=== PATIENT | female | born 1995 | race Caucasian/White ===

== ENCOUNTER 2020-01-31 18:52 | Emergency (ER) | payer OTHER, SELFPAY ==
--- NOTE | ~2020-01-31 | CT_ITS ---
EXAMINATION: CT abdomen pelvis w con EXAM DATE: 01/31/2020 20:49 INDICATION: Right upper quadrant, epigastric pain. TECHNIQUE: Spiral CT of the abdomen and pelvis was performed following intravenous injection of 100 m L Omnipaque 350. Axial, coronal and sagittal images were reviewed. The dose-length product (DLP) fo r this examination was 721.00 mGy-cm. The exposure was tailored according to patient size (auto mA e xposure control), and iterative reconstruction (ASIR) was used as additional dose reduction technique . There is no prior study for comparison. FINDINGS: The liver, spleen, adrenal glands and pancreas are unremarkable. Gallbladder is unremarkab le. No biliary obstruction. Portal and splenic veins are patent. Kidneys enhance symmetrically. T here is no hydronephrosis. The uterus is anteverted and morphologically normal. The bladder is un remarkable. There is no retroperitoneal or pelvic lymphadenopathy. The appendix is normal. The stomach and small bowel are unremarkable. There is expected amount of c olonic stool. No free intraperitoneal gas. The heart is normal in size. There are no pericardial or pleural effusions. The lung bases are unremarkable. The bones are unremarkable. IMPRESSION: 1. No acute intra-abdominal findings. Reviewed, dictated and finalized at location A.
[2020-01-31 18:54] VITALS: BP 138/85; PULSE 79; RESP 17; TEMP 36.9; O2SAT 98
--- NOTE | 2020-01-31 19:09 | PC.NURSE ---
PT INFORMED OF NEED FOR UA, REFUSING CATH, STATES THAT SHE WILL ATTEMPT LATER.
[2020-01-31 19:11] LABS: Basophils Absolute Auto 0.1 K/mm3 (0.0-0.1); Basophils Percent Auto 0.6 % (0.2-1.2); Eosinophils Absolute Auto 0.1 K/mm3 (0-0.3); Eosinophils Percent Auto 1.1 % (0-4.4); Hematocrit 39.8 % (37.0-47.0); Hemoglobin 13.5 g/dL (12.0-15.0); Immature Granulocyte Absolute 0.02 K/mm3 (0.00-0.031); Immature Granulocyte Percent A 0.2 % (0-0.5); Lymphocytes Percent Auto 24.1 % (18.3-44.2); Mean Corpuscular HGB Conc 33.9 g/dl (32-36); Mean Corpuscular Hemoglobin 30.3 pg (26-34); Mean Corpuscular Volume 89.2 fl (80-100); Mean Platelet Volume 11.6 fl (7.4-10.4); Monocytes Absolute Auto 0.8 K/mm3 (0.1-0.6); Monocytes Percent Auto 9.3 % (2.6-8.5); Neutrophils Absolute Auto 5.4 K/mm3 (1.3-6.7); Neutrophils Percent Auto 64.7 % (45.5-73.1); Platelet Count Result 266 k/mm3 (150-375); Red Blood Count 4.46 M/mm3 (4.2-5.4); Red Cell Distribution Width 12.9 % (11.5-14.5); White Blood Count 8.3 K/mm3 (4.5-10.0)
--- NOTE | 2020-01-31 19:15 | ED.ABDPAIN ---
HPI - Abdominal Pain General Chief Complaint: Abdominal Pain Stated Complaint: doctor says I may have gall stones Time Seen by Provider: 01/31/20 19:07 History of Present Illness HPI narrative: Epigastric pain for the past few weeks. Continuous. Worse with activity and after eating. Associated with nausea. Additionally she reports one dark stool. She does feel more fatigued. No dizziness or SOB. Seen by her PCP and started on Nexium a few days ago. He sent her here for further evaluation. Related Data Home Medications Medication Instructions Recorded Confirmed esomeprazole magnesium [Nexium] 40 mg PO DAILY 01/31/20 sertraline [Zoloft] 25 mg PO DAILY 01/31/20 Allergies Allergy/AdvReac Type Severity Reaction Status Date / Time amoxicillin Allergy Mild HIVES Verified 01/31/20 19:34 Review of Systems Review of Systems: All systems reviewed & are unremarkable except as noted in HPI and below Constitutional: Constitutional: Reports fever(s) and Denies weakness Cardiovascular: Cardiovascular: Denies chest pain Respiratory: Respiratory: Denies dyspnea Gastrointestinal: Gastrointestinal: Reports abdominal pain, Denies constipation, Denies diarrhea, Reports nausea and Denies vomiting Genitourinary: Genitourinary: Denies hematuria, Denies nocturia and Denies dysuria Musculoskeletal: Musculoskeletal: Denies back pain Neurologic: Denies dizziness and Denies weakness Hematologic/Lymphatic: Hematologic/Lymphatic: Denies easy bleeding and Denies easy bruising PMFSH Surgical History Surgical History Hx of tonsillectomy Social History Social History Gender identity (if verbalized by the patient): Female Exam Const: General: healthy appearing, no acute distress and alert Orientation/consciousness: patient oriented x3 HENMT: Head: normal to inspection Resp: Effort & Inspection: normal respiratory effort Auscultation: clear to auscultation bilaterally, no rales, no rhonchi and no wheezes Cardio: Jugular venous distension: no JVD Rate: regular rate Rhythm: regular rhythm Heart sounds: no murmurs GI: Inspection: non-distended GI Palp: Yes Soft to palpation, Yes Tenderness to palpation present (GI) (epigastric), No Guarding due to palpation present (GI) and No Rebound tenderness present Auscultation: normal bowel sounds Skin: General skin exam: normal color Neuro: General: patient oriented x3 and moves all extremities Speech: normal speech Course Vital Signs Vital signs: Vital Signs Temperature 36.9 C 01/31/20 18:54 Pulse Rate 79 01/31/20 18:54 Respiratory Rate 17 01/31/20 18:54 Blood Pressure 138/85 01/31/20 18:54 Pulse Oximetry 98 01/31/20 18:54 Temperature 36.9 C 01/31/20 18:54 Pulse Rate 71 01/31/20 21:30 Respiratory Rate 19 01/31/20 21:30 Blood Pressure 130/72 01/31/20 21:30 Pulse Oximetry 100 01/31/20 21:30 MDM - Abdominal Pain MDM Narrative Medical decision making narrative: H/o concerning for peptic ulcer, possibly biliary colic. Medical Records Attestation: I reviewed the patient's medical records. Lab Data Attestation: I reviewed the patient's lab results. Result diagrams: 01/31/20 19:05 01/31/20 19:55 Labs: Lab Results 01/31/20 01/31/20 01/31/20 Range/Units 19:05 19:19 19:55 WBC 8.3 (4.5-10.0) K/mm3 RBC 4.46 (4.2-5.4) M/mm3 Hgb 13.5 (12.0-15.0) g/dL Hct 39.8 (37.0-47.0) % MCV 89.2 (80-100) fl MCH 30.3 (26-34) pg MCHC 33.9 (32-36) g/dl RDW 12.9 (11.5-14.5) % Plt Count 266 (150-375) k/mm3 MPV 11.6 H (7.4-10.4) fl Immature Gran % (Auto) 0.2 (0-0.5) % Neut % (Auto) 64.7 (45.5-73.1) % Lymph % (Auto) 24.1 (18.3-44.2) % Phillips % (Auto) 9.3 H (2.6-8.5) % Eos % (Auto) 1.1 (0-4.4) % Baso % (Auto) 0.6 (0.2-1.2) % Lymph # (Auto)
[2020-01-31 19:30] LABS: Add Urine Microscopic? YES; Appearance Urine Clear (Clear); Bacteria Urine Trace /hpf; Bilirubin Urine Negative (Negative); Blood Urine 3+ (Negative); Color Urine Straw (Yellow); Glucose Urine UA Negative (Negative); Ketones Urine Negative (Negative); Leukocyte Esterase Ur Negative LEU/UL (Negative); Nitrate Urine Negative (Negative); Protein Urine Negative (Negative); RBC Urine 0-2 /hpf (0-2); Specific Grav Ur 1.006 (1.001-1.035); Squamous Epithelial Cell Urine Few /hpf (Few); WBC Urine 0-3 /hpf
[2020-01-31 20:12] LABS: Alanine Aminotransferase 22 U/L (4-35); Albumin Level 4.5 g/dL (3.5-5.1); Alkaline Phosphatase 48 U/L (38-126); Anion Gap 6 mmol/L (8-16); Aspartate Amino Transferase 34 U/L (14-36); Bilirubin,Total 2.6 mg/dL (0.2-1.3); Blood Urea Nitrogen 12 mg/dL (7-17); Calcium 9.1 mg/dL (8.4-10.2); Carbon Dioxide 25 mmol/L (22-30); Chloride 105 mmol/L (98-107); Estimated CRCL calculation 127 ml/min; Estimated Glomerular Filt Rate > 60; Glucose 116 mg/dL (65-105); Lipase 59 U/L (23-300); Potassium 3.7 mmol/L (3.4-5.0); Sodium 136 mmol/L (137-145)
[2020-01-31 21:30] VITALS: BP 130/72; PULSE 71; RESP 19; O2SAT 100
== END 2020-01-31 21:33 | disposition home or self-care (01) ==
PROVIDERS: Emergency Medicine; Emergency Provider Emergency Medicine; PCP Internal Medicine
DX: R10.13 Epigastric pain (principal); R10.9 Unspecified abdominal pain
CPT/HCPCS: 36415; 74177; 80053; 81001; 81025; 83690; 85025; 99284; Q9967

== ENCOUNTER 2020-05-11 11:11 | Outpatient (CLI) | payer OTHER, SELFPAY ==
--- NOTE | ~2020-05-11 | US_ITS ---
EXAMINATION: US OB transvaginal EXAM DATE: 05/11/2020 11:31 INDICATION: Dating. . 1st trimester. TECHNIQUE: Pelvic obstetrical transvaginal sonogram was performed by a technologist. There are [facility] grayscale and Doppler images available for interpretation. There are no earlier studies of this gestation for comparison. FINDINGS: Uterus measures 9.7 x 4.9 x 6.0 cm. There is intrauterine gestation sac. pole with heart rate confirmed at 145 beats per minute. The 9 mm crown-rump length corresponds to estimated ge stational age by ultrasound of 7 weeks 0 days, estimated date of confinement 12/28/2020. Yolk sac is i dentified. There is no sonographic evidence of subchorionic hemorrhage. The ovaries are morpholog ically normal. IMPRESSION: Early live intrauterine gestation, age by ultrasound 7 weeks 0 days. Reviewed, dictated and finalized at location A. RITY DISPATCHER IMPRESSION: Early live intrauterine gestation, age by ultrasound 7 weeks 0 day s.
== END 2020-05-11 11:12 ==
PROVIDERS: Visit Provider Obstetrics & Gynecology Gynecology
DX: O26.841 Uterine size-date discrepancy, first trimester (principal); Z3A.01 Less than 8 weeks gestation of pregnancy
CPT/HCPCS: 76817

== ENCOUNTER 2020-06-26 12:07 | Outpatient (CLI) | payer OTHER, SELFPAY ==
--- NOTE | ~2020-06-26 | US_ITS ---
EXAMINATION: US breast LT limited HISTORY: Left breast pain and swelling and left nipple inversion TECHNIQUE: Targeted ultrasound of the subareolar left breast is performed. FINDINGS: There is an approximately 3.8 x 1.7 cm fluid collection with debris in the subareolar aspec t of the breast. The fluid containing component measures approximately 2 cm. There is increased vascu larity and edema of the surrounding breast tissue. IMPRESSION: Cellulitis with possible small abscess in the subareolar aspect of the breast. Recommend trial of ant ibiotics and repeat ultrasound with possible aspiration if necessary. BI-RADS Category 2: Benign finding(s). Reviewed, dictated and finalized at location A. O MAKER IMPRESSION: Cellulitis with possible small abscess in the subareolar aspect of the breast. Recommend trial of antibiotics and repeat ultrasound with possible aspiration i f necessary. BI-RADS Category 2: Benign finding(s).
== END 2020-06-26 12:08 | disposition home or self-care (01) ==
PROVIDERS: Visit Provider Nurse Practitioner
DX: N63.20 Unspecified lump in the left breast, unspecified quadrant (principal)
CPT/HCPCS: 76642

== ENCOUNTER → 2020-07-11 08:24 | Outpatient (CLI) | payer OTHER, SELFPAY ==
--- NOTE | ~2020-07-11 | US_ITS ---
US breast LT limited DATE: 07/11/2020 08:42 INDICATION: Breast abscess follow-up TECHNIQUE: High-resolution ultrasound and color flow imaging of left breast targeted to the abscess a t T10-11 o'clock COMPARISON: 06/26/2020 Limited left breast ultrasound examination FINDINGS: There is interval decreased size of an irregular fluid collection in the left breast at 10- 11:00 area, previously measuring up to at least 1.4 x 4.8 x 4 cm on 06/26/2020, currently measuring arianna roximately 10 x 26 x 35 mm. There is prominent surrounding vascularity on color flow imaging. There i s no suspicious shadowing. IMPRESSION: Diminished size of irregular fluid collection in the left breast at 10-11:00 position, cody bourne consistent with mildly improving abscess secondary to antibiotic therapy Reviewed, dictated and finalized at Location A. Reviewed, dictated and finalized at location A. EKEEPER IMPRESSION: Diminished size of irregular fluid collection in the left breast at 10-11:00 position, likely consistent with mildly improving abscess secondary t o antibiotic therapy
== END ==
PROVIDERS: Visit Provider Obstetrics & Gynecology Gynecology
DX: N61.1 Abscess of the breast and nipple (principal)
CPT/HCPCS: 76642

== ENCOUNTER 2020-08-22 18:25 | Inpatient (IN) | payer OTHER, SELFPAY ==
--- NOTE | ~2020-08-22 | US_ITS ---
EXAMINATION: US OB follow up EXAM DATE: 08/24/2020 10:11 INDICATION: Growth and fluid, well being post abscess tx . well-being. 2nd trimester. TECHNIQUE: Pelvic obstetrical transabdominal sonogram was performed by a technologist. There are mu ltiple grayscale and Doppler images available for interpretation. FINDINGS: There is a single fetus identified in breech presentation with a heart rate of 161 beats pe r minute. The placenta is located in the posterior fundal position. There is no sonographic evidence of retroplacental hemorrhage identified. The amniotic fluid index is 11.5 centimeters, which is norm al. BIOMETRIC DATA: Biparietal diameter (BPD): 5.1cm ----------------> 21 weeks 4 days. Head circumference (HC): 19.4 cm ----------------> 21 weeks 4 days. Abdominal circumference (AC): 18.5 cm ----------> 23 weeks 2 days. Femur length (FL): 3.7 cm --------------------------> 21 weeks 5 days. These measurements are discordant, decreased HC/AC ratio. HC/AC ratio is 1.05 (The 5th -- 95th percentile range is 1.06-1.11. Estimated weight is 506 g +/- 76 g. This is the 68th percentile when the currently reported cl inical gestation age 22 weeks 0 days, clinical estimated date of delivery (FADI-OPE) 12/28/2020 is used. estimated gestational age based on measurements from this exam is also 22 weeks 0 days. IMPRESSION: 1. Single fetus in breech presentation with heart rate 161 beats per minute. 2. Estimated weight of 506 grams, 68th percentile using the currently reported clinical gestat ion age of 22 weeks 0 days, FADI(OPE) 12/28. 3. Mildly decreased HC/AC ratio. 4. Normal MICHAEL 11.5 cm. Reviewed, dictated and finalized at location A. IONS RETIREMENT PLAN SPECIALIST IMPRESSION: 1. Single fetus in breech presentation with heart rate 161 beats per minute. 2. Estimated weight of 506 grams, 68th percentile using the currently re ported clinical gestation age of 22 weeks 0 days, FADI(OPE) 7/8. 3. Mildly decreased HC/AC ratio. 4. Normal MICHAEL 11.5 cm.
--- NOTE | ~2020-08-22 | US_ITS ---
EXAMINATION: US breast cyst asp LT DATE: 08/23/2020 14:54 INDICATION: Recurrent left breast abscess. TECHNIQUE: The skin overlying the left breast was prepped and draped in usual sterile fashion. Anest hetic was administered with 1% lidocaine subcutaneously. An 18 trochanter needle was then used to as pirate the abscess under continuous sonographic guidance. The entry site was cleaned and dressed. Th ere were no immediate complications. FINDINGS: Ultrasound images demonstrate the needle in a left breast abscess. IMPRESSION: 1. Ultrasound-guided needle aspiration of a left breast abscess yielding 7 mL miguel, opaque fluid. Reviewed, dictated and finalized at location A. A PROMOTER IMPRESSION: 1. Ultrasound-guided needle aspiration of a left breast abscess yielding 7 mL t an, opaque fluid.
[2020-08-22 18:45] VITALS: BP 141/81; PULSE 108; RESP 20; TEMP 37.2; O2SAT 100
[2020-08-22 20:42] VITALS: BP 148/89; PULSE 85; RESP 12; TEMP 36.4; O2SAT 100
--- NOTE | 2020-08-22 21:20 | ED.GENADULT ---
HPI - General Adult General Chief complaint: Unspecified Stated complaint: left breast abcess Time Seen by Provider: 08/22/20 21:18 Source: patient Mode of arrival: ambulatory Limitations: no limitations History of Present Illness HPI narrative: 25-year-old female with a large, recurring breast abscess on the left. She states that she started developing these abscesses back in February and they occur approximately every other month. This is the largest and most painful when she has had and she had been referred to the [facility] for I&D. She saw them on they were unable to drain the abscess under ultrasound they did do a culture of the fluid that was a no growth she had been on clindamycin and is now on Bactrim. She denies any fever but has significant pain, swelling and erythema. There is no discharge from her nipple. She came in tonight at the recommendation of her literary agent because the abscess is growing and is quite painful and he thought she may need IV antibiotics. Incidentally, she is 21 weeks her EDC is December 28, 2020. She is not diabetic. Onset (ago): day(s) Associated symptoms: denies other symptoms Related Data Home Medications Medication Instructions Recorded Confirmed esomeprazole magnesium [Nexium] 40 mg PO DAILY 01/31/20 sertraline [Zoloft] 25 mg PO DAILY 01/31/20 Allergies Allergy/AdvReac Type Severity Reaction Status Date / Time amoxicillin Allergy Mild HIVES Verified 08/22/20 21:25 Review of Systems Review of Systems: All systems reviewed & are unremarkable except as noted in HPI and below [facility] Surgical History Surgical History Hx of tonsillectomy Social History Social History (Updated 08/22/20 @ 21:36 by Kacie Solorzano PA-C) Smoking status: Never smoker Alcohol intake: never Substance use: never Living arrangements: with family Occupation/Education: occupation 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 ) Other: There is a firm, 8X 5 cm abscess behind the nipple, erythematous. No areas of fluctuance, no drainage from nipple. Resp: Effort & Inspection: normal respiratory effort and able to speak in complete sentences Cardio: Rate: regular rate Rhythm: regular rhythm GI: Inspection: other (gravid) Skin: General skin exam: erythema (around abscess) Extrem: General: normal to inspection Course Course Emergency Course: Pt showed me the US and cx results from [place]. Bi-Rad: appears benign, but has not been bx. It grew ~ 5 cm in 1 month despite being on antibiotic. The final culture was no growth. Spoke with Dr. Nguyen from surgery, he will consult in am. Spoke with Dr. Renner, would like her admitted under his service. Spoke with Dr. Gore from [place], he recommends Vancomycin. Vital Signs Vital signs: Vital Signs Temperature 37.2 C 08/22/20 18:45 Pulse Rate 108 H 08/22/20 18:45 Respiratory Rate 20 08/22/20 18:45 Blood Pressure 141/81 H 08/22/20 18:45 Pulse Oximetry 100 08/22/20 18:45 Temperature 37.1 C 08/23/20 01:50 Pulse Rate 88 08/23/20 01:50 Respiratory Rate 16 08/23/20 01:50 Blood Pressure 124/73 08/23/20 01:50 Pulse Oximetry 100 08/23/20 01:50 Medical Decision Making Vital Signs Vital Signs: Vital Signs Temperature 37.2 C 08/22/20 18:45 Pulse Rate 108 H 08/22/20 18:45 Respiratory Rate 20 08/22/20 18:45 Blood Pressure 141/81 H 08/22/20 18:45 Pulse Oximetry 100 08/22/20 18:45 Temperature 37.1 C 08/23/20 01:50 Pulse Rate 88 08/23/20 01:50 Respiratory Rate 16 08/23/20 01:50 Blood Pressure 124/73 08/23/20 01:50 Pulse Oximetry 100 08/23/20 01
[2020-08-22 22:30] LABS: Basophils Percent Auto 0.3 % (0.2-1.2); Eosinophils Absolute Auto 0.1 K/mm3 (0-0.3); Eosinophils Percent Auto 0.7 % (0-4.4); Hematocrit 32.9 % (37.0-47.0); Hemoglobin 11.2 g/dL (12.0-15.0); Immature Granulocyte Absolute 0.07 K/mm3 (0.00-0.031); Immature Granulocyte Percent A 0.6 % (0-0.5); Lymphocytes Absolute Auto 2.01 K/mm3 (0.9-3.2); Lymphocytes Percent Auto 15.9 % (18.3-44.2); Mean Corpuscular Hemoglobin 31.1 pg (26-34); Mean Corpuscular Volume 91.4 fl (80-100); Mean Platelet Volume 9.8 fl (7.4-10.4); Monocytes Absolute Auto 0.8 K/mm3 (0.1-0.6); Monocytes Percent Auto 6.3 % (2.6-8.5); Neutrophils Absolute Auto 9.6 K/mm3 (1.3-6.7); Neutrophils Percent Auto 76.2 % (45.5-73.1); Platelet Count Result 184 k/mm3 (150-375); Red Cell Distribution Width 13.2 % (11.5-14.5); White Blood Count 12.6 K/mm3 (4.5-10.0)
[2020-08-23 00:34] VITALS: BP 114/65; PULSE 71; RESP 18; O2SAT 100
[2020-08-23 00:52] LABS: Anion Gap 6 mmol/L (8-16); Blood Urea Nitrogen 7 mg/dL (7-17); Calcium 8.4 mg/dL (8.4-10.2); Carbon Dioxide 25 mmol/L (22-30); Chloride 104 mmol/L (98-107); Estimated CRCL calculation 155 ml/min; Estimated Glomerular Filt Rate > 60; Glucose 81 mg/dL (65-105); Potassium 3.7 mmol/L (3.4-5.0); Sodium 135 mmol/L (137-145)
[2020-08-23 01:50] VITALS: BP 124/73; PULSE 88; RESP 16; TEMP 37.1; O2SAT 100; BMI 34.0
--- NOTE | 2020-08-23 04:17 | ADMGEN ---
This patient, Mary Beth Niño, was admitted to [facility] Surg Room 320-01 at 0150. Patient/family oriented to hospital policies and general routines including ID bracelet, bed and alarms, visiting hours, pain management, procedures, bathroom and other care routines, personal items, smoking policy, room service/diet, and visiting hours. Information on how to activate the Rapid Response Team has been discussed. Patient/Family are encouraged to report perceived risks to care and to ask questions if they do not understand what they are told or what they should do.
--- NOTE | 2020-08-23 04:43 | PC.NURSE ---
charted on wrong patient for urinary catheter
[2020-08-23 06:00] VITALS: BP 124/61; PULSE 92; RESP 16; TEMP 36.9; O2SAT 100
--- NOTE | 2020-08-23 08:36 | PM.IMHP ---
H&P: HPI History of Present Illness Date/Time: 08/23/20 08:36 Chief Complaint: breast pain Narrative: Mary Beth Niño is a 25 year old female 1 at 21 weeks gestation who presented the emergency department with a painful breast abscess. She was known to have a breast abscess and was seen by doctors at an outside institution. They failed to aspirate the abscess. The abscess became more painful. Is in the left breast. It has grown since the failed aspiration. Patient denies any contractions or vaginal bleeding. She denies any nausea or vomiting. She has refill warm at times. She did not document the real fever. She denies any chills. She denies any chest pain or shortness of breath. She denies any headache or blurry vision. Review of Systems Constitutional: Constitutional: Reports no additional constitutional complaints, Denies fatigue, Denies headache(s), Denies lethargy and Denies weakness Eyes: Eyes: Reports no additional eye complaints, Denies blurry vision and Denies photophobia ENT: Reports as per HPI, Denies headache(s) and Denies neck pain Cardiovascular: Cardiovascular: Denies chest pain, Denies diaphoresis, Denies leg edema, Denies palpitations and Denies dyspnea Respiratory: Respiratory: Denies hemoptysis, Denies dyspnea and Denies wheezing Gastrointestinal: Gastrointestinal: Denies abdominal pain, Denies melena, Denies bloating, Denies hematochezia, Denies nausea and Denies vomiting Genitourinary: Genitourinary: Reports no additional female genitourinary complaints Musculoskeletal: Musculoskeletal: Denies joint swelling, Denies neck pain, Denies numbness and Denies stiffness Neurologic: Denies Abnormal speech present, Denies confusion, Denies headache(s), Denies numbness and Denies weakness Psychiatric: Psychiatric: Denies anxiety, Denies confusion, Denies depression, Denies homicidal ideation and Denies suicidal ideation Endocrine: Endocrine: Denies fatigue and Denies palpitations Allergic/Immunologic: Allergic/Immunologic: Denies wheezing PMFSH Surgical History Surgical History Hx of tonsillectomy Family History Family History (Updated 08/23/20 @ 04:21 by Zulma Begum RN) Father Hypertension Other Cancer determined by pancreatic biopsy Social History Social History (Updated 08/22/20 @ 21:36 by Kacie Solorzano PA-C) Smoking status: Never smoker Second hand tobacco smoke exposure: No Alcohol intake: never Substance use: never Living arrangements: with family Occupation/Education: occupation 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 Gender identity (if verbalized by the patient): Female Spiritual care concerns: No Meds Home Medications and Allergies Home Medications Medication Instructions Recorded Confirmed Type sertraline [Zoloft] 25 mg PO DAILY 01/31/20 08/23/20 History Allergies Allergy/AdvReac Type Severity Reaction Status Date / Time amoxicillin Allergy Mild HIVES Verified 08/22/20 21:25 Vital Signs Vital Signs - 24 hr 08/22/20 18:45 08/22/20 20:42 08/23/20 00:34 Temperature 98.9 F 97.6 F Pulse Rate 108 H 85 71 Respiratory Rate 20 12 18 Blood Pressure 141/81 H 148/89 H 114/65 Pulse Oximetry 100 100 100 08/23/20 01:50 08/23/20 06:00 Temperature 98.7 F 98.5 F Pulse Rate 88 92 Respiratory Rate 16 16 Blood Pressure 124/73 124/61 Pulse Oximetry 100 100 Exam Const: General: healthy appearing, comfortable and no acute distress; No confusion Orientation/consciousness: No confusion Eyes: Direct Ophthalmoscopy: No photophobia Resp: Auscultation: clear to auscultation bilaterally, no rales, no rhonchi and no wheezes Cardio: Rate: regular rate Heart sounds: no click, no murmurs and no rubs GI: Inspection: non-distended GI Palp: No abdominal tenderness Auscultation: normal bowel sounds Neuro: General: No confusion Speech: No Abnormal spe
--- NOTE | 2020-08-23 08:59 | PM.CNGS ---
Assessment and Plan Assessment and plan (1) Subareolar breast abscess: Code(s): N61.1 - Abscess of the breast and nipple Status: Acute Assessment and Plan: The patient has had ongoing issues with a recurrent left breast abscess since last February. The most recent imaging in our electronic system is from mid-June. There is no obvious fluctuant area or drainage on exam. Currently she is on IV Vancomycin per ID recommendations, which we would agree to continue. I discussed treatment options in detail with the patient. We could proceed with having an ultrasound done in Radiology and seeing if our Radiologist can aspirate any fluid collection if it is seen on ultrasound. That fluid would then be sent for culture and we could continue IV antibiotics while awaiting results. If an ultrasound is performed and there is no fluid collection, and this appears more phlegmonous, then we would recommend continuing IV antibiotics and monitoring. If there is a fluid collection that could not be aspirated by ultrasound-guidance in Radiology, which is a concern considering a failed aspiration last week, then we would have to consider taking her to the OR for incision and drainage of the left breast. I discussed with Dr. Nguyen the possibility of also considering obtaining a breast biopsy since this is recurrent and such a prolonged course. If she were taken to surgery, we would likely need to use IV sedation. This would pose some increased risks for her and the fetus. Also, she would like to breastfeed after delivery, therefore we would recommend the least invasive option to try and avoid a breast incision, which could also lead to complications with development and in the future. The patient is agreeable to proceeding with the ultrasound first, which would be less invasive than taking her to surgery. Thank you for allowing us to see the patient in consultation. We will continue to follow along with you and further plan will depend on imaging. (2) Second trimester : Code(s): Z34.92 - Encounter for supervision of normal , unspecified, second trimester Status: Acute Additional Plan Discussed the patient's case and plan of care with Dr. Nguyen. History of Present Illness Consult details Consult date: 08/23/20 Reason for consult: other (Left breast abscess) Requesting physician: Kacie Solorzano PA-C Narrative: This is a 25-year-old female that is 21 weeks gestation, who presented to the ER for evaluation of left breast pain and swelling. The patient reports having a recurrent left breast abscess that 1st occurred in February of 2020. She was initially treated with Bactrim and the abscess resolved. This came back a 2nd time and resolved again with Bactrim. She then developed another left breast abscess in June 2020, and since then she has not had complete resolution of the abscess. She reports being on clindamycin, which did not help. She was sent to [facility] [place]note 2] for an ultrasound-guided aspiration of the left breast abscess last . She reports they were only able to get a scant amount of drainage and tried to send that for culture. The final culture showed no growth. She was told that the drainage was too thick and they did not have a large enough needle for aspiration of the thick fluid. The following day, on Friday, she was switched to Bactrim again. She denies any improvement in her symptoms and she actually feels that the swelling and pain has worsened over the last 24 hours. Due to the persistent left breast pain, she presented to the ER for further evaluation. Labs revealed white blood cell count of 12,000. Vital signs have been stable and she is afebrile. The patient has been admitted to the hospital and started on IV vancomycin per ID recommendations. Our service has been consulted for surgical evaluation of the left breast abscess. The patient is now seen on the medical floor. She repor
[2020-08-23 14:00] VITALS: BP 106/63; PULSE 79; RESP 20; TEMP 36.5; O2SAT 99
[2020-08-23] MEDS: ONDANSETRON INJ 4 MG/2 ML VIAL IV PUSH (15:43)
[2020-08-23 19:53] VITALS: RESP 20
[2020-08-23 22:00] VITALS: BP 101/58; PULSE 64; RESP 18; TEMP 36.9; O2SAT 100
--- NOTE | 2020-08-24 02:48 | PC.NURSE ---
Notified person news camera person, An Albarado of patient c/o of pain. New orders were given.
[2020-08-24] MEDS: ACETAMINOPHEN 500 MG TABLET 1000 MG PO ×2 (02:56→19:58)
[2020-08-24 06:00] VITALS: BP 107/70; PULSE 65; RESP 20; TEMP 36.9; O2SAT 100
[2020-08-24 07:09] LABS: Estimated CRCL calculation 155 ml/min; Estimated Glomerular Filt Rate > 60
--- NOTE | 2020-08-24 08:07 | PM.OBPNVD ---
OB - PN: Subj Subjective Date/time seen: 08/24/20 08:07 Improved discomfort at the left breast, decreased size of the affected area, no nipple discharge, no fever, no nausea or vomiting OB - PN: Obj Data Labs CBC & Chem 7: 08/22/20 22:22 08/24/20 06:28 Labs: Laboratory Results - last 24 hr 08/24/20 06:28 Creatinine 0.50 L Estim Creat Clear Calc 155 Estimated GFR > 60 Imaging Radiologist's impression: Impressions Cyst Aspiration Ultrasound 08/23/20 15:28 IMPRESSION: 1. Ultrasound-guided needle aspiration of a left breast abscess yielding 7 mL miguel, opaque fluid. OB - PN A/P Assessment and Plan (1) Second trimester : Code(s): Z34.92 - Encounter for supervision of normal , unspecified, second trimester Status: Acute (2) Subareolar breast abscess: Code(s): N61.1 - Abscess of the breast and nipple Status: Acute Assessment and Plan: This patient is a 25-year-old 1 at 22 weeks gestation with a breast abscess. It has been drained with a ultrasound-guided aspiration. She has been getting IV vancomycin. There has been improvement. Await word from surgery on possible discharge. To get ultrasound today to confirm well-being post treatment. Time Spent With Patient Time: Total time spent is greater than 50% in coordination of care (as documented) at patient's floor/unit and/or counseling patient: Exam Const: General: comfortable, no acute distress and alert Resp: Effort & Inspection: normal respiratory effort Auscultation: no crackles, no rales and no rhonchi Cardio: Rate: regular rate Heart sounds: no click, no murmurs and no rubs GI: Inspection: non-distended GI Palp: No Tenderness to palpation present (GI) Auscultation: normal bowel sounds Other: Incision - CDI Extrem: General: normal to inspection, no pedal edema and no calf tenderness
[2020-08-24 11:25] LABS: Vancomycin Trough < 5.0 ug/mL (10.0-20.0)
[2020-08-24 11:28] LABS: Hematocrit 33.3 % (37.0-47.0); Hemoglobin 11.3 g/dL (12.0-15.0); Mean Corpuscular HGB Conc 33.9 g/dl (32-36); Mean Corpuscular Hemoglobin 31.1 pg (26-34); Mean Corpuscular Volume 91.7 fl (80-100); Mean Platelet Volume 9.8 fl (7.4-10.4); Platelet Count Result 197 k/mm3 (150-375); Red Blood Count 3.63 M/mm3 (4.2-5.4); Red Cell Distribution Width 13.1 % (11.5-14.5); White Blood Count 13.4 K/mm3 (4.5-10.0)
--- NOTE | 2020-08-24 11:57 | PM.PNGS ---
Progress Note: A&P Assessment and Plan (1) Subareolar breast abscess: Code(s): N61.1 - Abscess of the breast and nipple Status: Acute Assessment and Plan: US-guided aspiration of left breast abscess yesterday - yielding 7 mL fluid. Cultures pending. WBC slightly up, but she remains afebrile. Continue IV Vancomycin. Awaiting culture results. (2) Second trimester : Code(s): Z34.92 - Encounter for supervision of normal , unspecified, second trimester Status: Acute Additional Plan Discussed the plan of care with Dr. Nguyen. Subjective Subjective Date/Time Seen: 08/24/20 10:45 Patient reports: no new complaints, feels better and pain is less Interval history: Patient feeling better this morning. Reports the swelling and pain in her left breast has improved. No other complaints at this time. Review of Systems Review of Systems: All systems reviewed & are unremarkable except as noted in HPI and below Constitutional: Constitutional: Reports as per HPI, Denies chills and Denies fever(s) Exam Const: General: no acute distress, alert and awake Chest: Other: Right breast and axilla normal to inspection. Left breast with erythema, warmth, and swelling. Nipple inversion but no nipple discharge. Erythema appears to be coming down from the demarcated lines drawn in the ER. No obvious area of fluctuance. Neuro: General: moves all extremities and no focal motor deficits Extrem: General: no clubbing, cyanosis or edema Psych: Mental Status: mental status grossly normal Insight: Good insight present (Psych) Judgement: Good judgement present (Psych) Objective Data Vital Signs Vital Signs: Vital Signs - 24 hr 08/23/20 14:00 08/23/20 19:53 08/23/20 22:00 Temperature 97.7 F 98.4 F Pulse Rate 79 64 Respiratory Rate 20 20 18 Blood Pressure 106/63 101/58 L Pulse Oximetry 99 100 08/24/20 06:00 Temperature 98.5 F Pulse Rate 65 Respiratory Rate 20 Blood Pressure 107/70 Pulse Oximetry 100 Intake/Output Intake/Output: Intake & Output 08/21/20 08/22/20 08/23/20 08/24/20 23:59 23:59 23:59 23:59 Intake Total 1850 890 Output Total 700 400 Balance 1143 490 Meds/Results Medications: Active Medications Generic Name Dose Route Start Last Admin Trade Name Du PRN Reason Stop Dose Admin Acetaminophen 1,000 mg 08/24/20 02:45 08/24/20 02:56 Acetaminophen 500 Mg Tablet PO 1,000 mg Q6H PRN Administration Mild Pain (1-3) or Fever Vancomycin HCl 1,500 mg in 500 mls @ 333.333 mls/hr 08/23/20 12:00 08/24/20 02:15 Vancomycin 1,500 Mg/D5w 500 Ml IVPB Infused Q12H FLORENCIO Infusion Morphine Sulfate 2 mg 08/23/20 17:44 Morphine Sulfate (*Crx) 2 Mg/Ml Inj IV PUSH Q4H PRN Pain Rated 4-6 Ondansetron HCl 4 mg 08/23/20 15:40 08/23/20 15:43 Ondansetron Inj 4 Mg/2 Ml Vial IV PUSH 4 mg Q6H PRN Administration Nausea And Vomiting Radiology Results: ITS Impressions Cyst Aspiration Ultrasound 08/23/20 15:28 IMPRESSION: 1. Ultrasound-guided needle aspiration of a left breast abscess yielding 7 mL miguel, opaque fluid. Obstetrics Ultrasound 08/24/20 10:20 IMPRESSION: 1. Single fetus in breech presentation with heart rate 161 beats per minute. 2. Estimated weight of 506 grams, 68th percentile using the currently reported clinical gestation age of 22 weeks 0 days, FADI(OPE) 7/8. 3. Mildly decreased HC/AC ratio. 4. Normal MICHAEL 11.5 cm. Labs Labs: Laboratory Results - last 24 hr 08/24/20 08/24/20 08/24/20 06:28 10:34 11:22 WBC 13.4 H RBC 3.63 L Hgb 11.3 L Hct 33.3 L MCV 91.7 MCH 31.1 MCHC 33.9 RDW 13.1 Plt Count 197 MPV 9.8 Creatinine 0.50 L Estim Creat Clear Calc 155 Estimated GFR > 60 Vancomycin Trough < 5.0 L
[2020-08-24 14:00] VITALS: BP 121/64; PULSE 80; RESP 14; TEMP 37.1; O2SAT 99
[2020-08-24 20:50] VITALS: PULSE 64; RESP 18; O2SAT 100
[2020-08-24 22:00] VITALS: BP 106/58; PULSE 64; RESP 18; TEMP 36.2; O2SAT 100
[2020-08-25] VITALS (10 sets, daily range): BP systolic 94–123; BP diastolic 46–83; PULSE 70–87; RESP 14–22; TEMP 35.9–37.2; O2SAT 98–100
[2020-08-25 06:15] LABS: Hematocrit 33.2 % (37.0-47.0); Hemoglobin 11.3 g/dL (12.0-15.0); Mean Corpuscular Hemoglobin 31.2 pg (26-34); Mean Corpuscular Volume 91.7 fl (80-100); Mean Platelet Volume 10.2 fl (7.4-10.4); Platelet Count Result 193 k/mm3 (150-375); Red Blood Count 3.62 M/mm3 (4.2-5.4); Red Cell Distribution Width 13.2 % (11.5-14.5); White Blood Count 11.4 K/mm3 (4.5-10.0)
--- NOTE | 2020-08-25 08:15 | PM.OBPNVD ---
OB - PN: Subj Subjective Date/time seen: 08/25/20 08:15 No change in size breast mass, tenderness unchanged, she denies any nausea, vomiting, fever, chills. She denies any chest pain or shortness of breath. OB - PN: Obj Data Labs CBC & Chem 7: 08/25/20 05:54 08/24/20 06:28 Labs: Laboratory Results - last 24 hr 08/24/20 08/24/20 08/25/20 10:34 11:22 05:54 WBC 13.4 H 11.4 H RBC 3.63 L 3.62 L Hgb 11.3 L 11.3 L Hct 33.3 L 33.2 L MCV 91.7 91.7 MCH 31.1 31.2 MCHC 33.9 34.0 RDW 13.1 13.2 Plt Count 197 193 MPV 9.8 10.2 Vancomycin Trough < 5.0 L Imaging Radiologist's impression: Impressions Obstetrics Ultrasound 08/24/20 10:20 IMPRESSION: 1. Single fetus in breech presentation with heart rate 161 beats per minute. 2. Estimated weight of 506 grams, 68th percentile using the currently reported clinical gestation age of 22 weeks 0 days, FADI(OPE) 7/8. 3. Mildly decreased HC/AC ratio. 4. Normal MICHAEL 11.5 cm. OB - PN A/P Assessment and Plan (1) Subareolar breast abscess: Code(s): N61.1 - Abscess of the breast and nipple Status: Acute (2) Second trimester : Code(s): Z34.92 - Encounter for supervision of normal , unspecified, second trimester Status: Acute Assessment and Plan: 25-year-old 1 at 22 weeks gestation with breast abscess. It has been drained, we await cultures. There is reassuring status, ultrasound yesterday revealed appropriate growth and fluid. Time Spent With Patient Time: Total time spent is greater than 50% in coordination of care (as documented) at patient's floor/unit and/or counseling patient: Exam Const: General: comfortable, no acute distress and alert Resp: Effort & Inspection: normal respiratory effort Auscultation: no crackles, no rales and no rhonchi Cardio: Rate: regular rate Heart sounds: no click, no murmurs and no rubs GI: Inspection: non-distended GI Palp: No Tenderness to palpation present (GI) Auscultation: normal bowel sounds Other: Incision - CDI Extrem: General: normal to inspection, no pedal edema and no calf tenderness
--- NOTE | 2020-08-25 09:13 | PM.PNGS ---
Progress Note: A&P Assessment and Plan (1) Subareolar breast abscess: Code(s): N61.1 - Abscess of the breast and nipple Status: Acute Assessment and Plan: US-guided aspiration of left breast abscess on08/25/2020 - yielding 7 mL fluid. Cultures pending. (Gram stain shows 2 different kinds of bacteria with one predominating with gram-positive cocci and then also a few gram-negative bacilli). Not yet identified. WBC slightly down, and she remains afebrile. Has been taking plain Tylenol for pain. Continue IV Vancomycin. Awaiting culture results. Options of care: These are listed below in order of most recommended to least recommended 1. Continue current treatment with IV antibiotic (vancomycin) until final cultures are back and we can decide appropriately which oral antibiotic she may be able to do well on. Then follow up in the office early next week several days after she goes home. 2. Plan for IV home antibiotics with Infectious Disease consult, midline placement by PICC line nurse and then home antibiotics until whenever id recommends going off of these in on to oral therapy 3. Go ahead with incision and drainage from the inferior side of the left nipple with packing and biopsy of the cavity of area of inflammation. After discussing these she will d/w her and then I let the patient think about these until about noon. In the mean time we will be calling the Micro lab to see when they predict that we will have the final cultures back so the patient could better make a decision between the above. (2) Second trimester : Code(s): Z34.92 - Encounter for supervision of normal , unspecified, second trimester Status: Acute Additional Plan Discussed the plan of care with Subjective Subjective Date/Time Seen: 08/25/20 09:13 Interval history: Patient is sitting up in bed when I entered the room. She states she feels like her breast a little bit worse than yesterday. It did improve some after the aspiration 2 days ago. However, she notes that there is a little less swelling of the inferior portion of her left nipple. There is still some redness inferior and medial to the areola. No drainage from the entry site of the aspiration done 2 days ago. Review of Systems Review of Systems: All systems reviewed & are unremarkable except as noted in HPI and below Constitutional: Constitutional: Reports as per HPI, Denies chills, Denies fatigue, Denies fever(s), Denies headache(s) and Reports poor appetite Eyes: Eyes: Reports no additional eye complaints, Denies change in vision and Denies loss of vision ENT: Denies dizziness and Denies headache(s) Cardiovascular: Cardiovascular: Reports no additional cardiovascular complaints, Denies chest pain, Denies syncope, Denies leg edema and Denies dyspnea Respiratory: Respiratory: Reports no additional respiratory complaints, Denies cough, Denies dyspnea and Denies wheezing Gastrointestinal: Gastrointestinal: Reports as per HPI, Reports no additional gastrointestinal complaints, Denies abdominal pain, Denies bloating, Denies change in bowel habits, Denies diarrhea, Reports nausea and Denies vomiting Genitourinary: Genitourinary: Denies hematuria and Denies dysuria Musculoskeletal: Musculoskeletal: Reports no additional musculoskeletal complaints, Denies deformity, Denies joint swelling, Denies radiating pain into limb and Denies tingling Integumentary/Breasts: Skin/Breast: Reports as per HPI, Reports breast swelling, Reports breast skin changes, Reports breast pain, Denies pruritus, Denies wounds and Denies jaundice Neurologic: Reports system reviewed and no additional complaints, except as documented, Denies dizziness, Denies syncope, Denies headache(s), Denies loss of vision, Denies tingling and Denies tremor(s) Psychiatric: Psychiatric: Denies anxiety and Denies depression Endocrine: Endocrine: Denies fatigue Allergic/Immunologic: Allergic/Immunol
--- NOTE | 2020-08-25 12:45 | PC.NURSE ---
To OR per w/c, IV on standby. Report given to Marisabel JENSEN.
--- NOTE | 2020-08-25 12:59 | WPDANESEPPF ---
Anes - Initial Pre Proc Eval Procedure: Operation Date: 08/25/20 13:30 Proposed Procedures p Incision and Drainage Left Breast Abscess with Tissue Biopsy(Left) - Maxwell Nguyen MD Date/Time: 08/25/20 12:59 Surgeon: Breezy Renner MD Pre Op Diagnosis: left breast abcess Patient Data Age: 25 Gender: F Height: 1.63 m Weight: 90.1 kg Last Vital Signs Temp 35.9 C L 08/25/20 05:57 Pulse 71 08/25/20 05:57 Resp 18 08/25/20 05:57 BP 110/60 08/25/20 05:57 Pulse Ox 100 08/25/20 05:57 Allergies Allergy/AdvReac Type Severity Reaction Status Date / Time amoxicillin Allergy Mild HIVES Verified 08/25/20 13:21 Home Medications Medication Instructions Recorded Confirmed Type sertraline [Zoloft] 25 mg PO DAILY 01/31/20 08/25/20 History acetaminophen-codeine 2 tablet PO Q6H PRN #40 tablet 08/25/20 Rx sulfamethoxazole-trimethoprim 2 tablet PO Q12H #30 tablet 08/25/20 Rx [Bactrim DS] Laboratory Tests 08/25/20 05:54 WBC 11.4 K/mm3 H K/mm3 (4.5-10.0) RBC 3.62 M/mm3 L M/mm3 (4.2-5.4) Hgb 11.3 g/dL L g/dL (12.0-15.0) Hct 33.2 % L % (37.0-47.0) MCV 91.7 fl fl (80-100) MCH 31.2 pg pg (26-34) MCHC 34.0 g/dl g/dl (32-36) RDW 13.2 % % (11.5-14.5) Plt Count 193 k/mm3 k/mm3 (150-375) MPV 10.2 fl fl (7.4-10.4) Patient hx anesthesia problems: none Family hx anesthesia problems: none PMFSH Past Medical History Medical History History of breast abscess 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 Surgical History Surgical History Hx of tonsillectomy Family History Family History Father Hypertension Other Cancer determined by pancreatic biopsy Social History Social History (Updated 08/23/20 @ 09:11 by NEELA Butterfield) Smoking status: Never smoker Second hand tobacco smoke exposure: No Alcohol intake: never Substance use: never Substance use type: marijuana Other substance usage details: at times, not recent 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 Gender identity (if verbalized by the patient): Female Spiritual care concerns: No Anes - Eval Final PreProcedure Day of Procedure 08/25/20 12:59 Patient weight: obese Heart: regular rate and rhythm Lungs: clear to auscultation and normal air movement Airway: Mallampati scale class II Neurological: alert and oriented Last oral intake: >/= 8 hours ASA classification: III Emergent: no Anesthetic plan: proceed Anesthesia type and monitoring: general (22 weeks - rsi, TIVA) ETT Informed Consent: The patient's anesthetic plan and its attendant risks and benefits were discussed with the patient/family/POA. Questions were solicited and answers provided to the satisfaction of the patient/family/POA.
[2020-08-25] MEDS: LACTATED RINGERS 1,000 ML 30 ML IV CONT ×2 (13:00→14:42)
--- NOTE | 2020-08-25 13:39 | WPDHPUPDATE1 ---
History and Physical Update Update Date/Time: 08/25/20 13:39 History and Physical has been reviewed, including an updated exam of the patient. There are NO changes in the patient's condition. Risks, benefits, and alternatives have been discussed and questions answered. Patient agrees to proceed with procedure.
--- NOTE | 2020-08-25 14:59 | PM.PROC ---
Procedure Note - Detailed Date of procedure: 08/25/20 Pre-op diagnosis: left breast abcess Post-op diagnosis: same Procedure performed: 1. Incision and drainage of left breast abscess central left breast 2. Excisional biopsy of skin and is CIS breast tissue in for areolar area of abscess left breast Description of procedure: Patient was seen in her hospital room and various options discussed. After thorough discussion as noted in progress note earlier today patient decided to proceed with a surgical intervention to do a breast biopsy and do an incision and drainage of the left breast abscess that has been present for some time. She realizes that she will need to pack this daily afterwards and let it heal from the inside out. Patient was taken the operative room and after induction of adequate general tracheal anesthesia we performed a time-out with surgery team. Left breast was thoroughly prepped and draped and then exposed for the procedure. I outlined in black indelible ink the area of redness on the breast. This is mainly just medial and inferior to the nipple. Following this an incision was outlined at the inferior areolar margin from about the 4 to the 7 o'clock position. Local anesthetic using 0.5% Marcaine with epinephrine was placed into the skin in this area and an elliptical excision of a small wedge of skin including some underlying breast tissue was taken and sent for pathology. As we did this we did enter the abscess and there was a flow of yellowish green pus. Culture swab was done and sent for Gram stain, aerobic, and anaerobic bacterial culture. Following this the purulence was sucked out, approximately 5-7 cc of purulence was initially suctioned away. We then established hemostasis in the wound with Bovie cautery. Then we irrigated with 100 cc of normal saline. Once this was irrigated out well I put a finger in to be sure there was all the adhesions in the abscess were broken up. This was then packed with about 30 inches of half-inch iodoform Nu Gauze. A folded set of 4x4s and then a flat set of 4x4s were placed over the wound and the nipple and this was taped in place with 4 inch micropore tape. Patient tolerated the procedure well. Estimated blood loss approximately 10 cc. Implants: none Anesthesia: GETA Surgeon: Maxwell Nguyen MD Produce Buyer: Marie JENSEN,OR res habilitation assistant Estimated blood loss (mL): 10 Drains: No Packing: Yes (1/2 inch iodoform gauze approximately 30 inches) Pathology: yes (Skin and breast tissue directly overlying abscess and at the inferior margin of the areola) Complications: No immediate complications Condition: stable Disposition: PACU Findings: An abscess that extended from the inferior edge of the nipple directly deep and then superior into the breast tissue with an elongated cavity.
[2020-08-25] MEDS: BUPIVACAINE/EPINEPHRINE 0.5% 30 ML VIAL INFILTRATE (15:01)
--- NOTE | 2020-08-25 15:02 | SUR.PHASEI ---
FHT's 142 per doppler- located midline.
--- NOTE | 2020-08-25 16:00 | PC.NURSE ---
Returned from OR per stretcher. Report received from PROJECTION ENGINEER.
--- NOTE | 2020-09-17 09:39 | P.DS_ITS ---
DS: Admitting Diagnosis Admitting Diagnosis Admitting Diagnosis: breast abscess, 2nd trimester DS: Discharge Diagnosis Discharge Diagnosis (1) Subareolar breast abscess: Code(s): N61.1 - Abscess of the breast and nipple Status: Acute (2) Second trimester : Code(s): Z34.92 - Encounter for supervision of normal , unspecified, second trimester Status: Acute DS: Summary Hospital Course Hospital Course: this patient is a 25-year-old female who was in the 2nd trimester of her . She developed breast abscess. She was admitted and treated with antibiotics. There seemed to be some resolution of the abscess symptoms. She was discharged on antibiotics. She was afebrile throughout her stay. General surgery was consulted. General surgery guided her care. She was discharged with short-term follow-up. Status at Discharge Functional status at discharge: independent ambulation Time Spent with Patient Time attestation: Total time spent providing and/or coordinating discharge services: DS: Data Data Completed and Pending Completed studies during hospitalization: Pending at discharge 08/25/20 14:26 Surgical [PTH] Routine Labs on day of discharge: Preliminary micro results at discharge 08/23/20 14:28 Fungal Culture - Preliminary Left Breast Aspiration Discharge Plan Discharge Consulting providers: Kacie Solorzano ; Maxwell Nguyen ; Bailey Hickman ; David Garzon ; Tim Ortega V. Discharging Clinician: Breezy Renner Anticipated Discharge Date/Time: 08/25/20 17:13 Patient Disposition: Home, Self-Care Activity: may shower Diet: regular Wound Care Instructions: follow printed instructions Discharge Instructions: 1. air intercept controller supervisor your antibiotic and prescription pain pills at pharmacy 2. Wound care: Patient's to take pain pill 1 hour prior to taking a shower. Pull all the old packing out in the shower. Shower breast and wound normally. Use a 4 x 4 to get all the of shower water out of the incision. Repack Lt. breast abscess area deeply with half-inch iodoform Nu Gauze cover with 4x4s and tape. This to being done daily please. 3. Use either plain Tylenol or Tylenol No. 3 tablets for pain. 4. Okay to apply ice over the area of the breast 1 hour out of every 3 over the 1st 24-48 hours which may help with swelling and pain. Patient Instructions: Antibiotic Form Stand Alone Forms: General Discharge Information, Work/School Release IP Follow-up/Referrals: Maxwell Nguyen MD [Physician] - Discharge Medications: New sulfamethoxazole-trimethoprim [Bactrim DS] 800-160 mg tablet 2 tablet PO Q12H Qty: 30 RF: 0 Continued sertraline [Zoloft] 25 mg Tablet 25 mg PO DAILY RF: 0 No Action acetaminophen [Tylenol Extra Strength] 500 mg tablet 500 mg PO Q6H PRNRF: 0 metronidazole 500 mg tablet 500 mg PO TID Qty: 21 RF: 0 Date of admission: 08/22/20 23:39 Primary Care Provider: Breezy Renner Admitting Provider: Breezy Renner Attending physician on admission: Breezy Renner Condition: Stable
== END 2020-08-25 17:20 | disposition home or self-care (01) | DRG 819 ==
LOC: ANHED 23:50 → ANH3MEDSUR 08-23 00:35
PROVIDERS: Nurse Practitioner Family; Physician Assistant; Surgery; Admitting Provider Obstetrics & Gynecology; Emergency Provider Emergency Medicine; PCP Obstetrics & Gynecology; Visit Provider Obstetrics & Gynecology
PROC: 0H9U0ZZ Drainage of Left Breast, Open Approach (ICD-10-PCS; principal; 2020-08-25 13:30)
DX: O91.112 Abscess of breast associated with pregnancy, second trimester (principal); Z3A.21 21 weeks gestation of pregnancy; Z88.1 Allergy status to other antibiotic agents
CPT/HCPCS: 19000; 36415; 76816; 80048; 80202; 82565; 85025; 85027; 87040; 87070; 87075; 87076; 87102; 87185; 87205; 87206; 88305; 99285; A9270; J0131; J0330; J2405; J2704; J3010; J3370; J7120

== ENCOUNTER 2020-09-29 13:42 | Outpatient (CLI) | payer OTHER, SELFPAY ==
--- NOTE | ~2020-09-29 | US_ITS ---
US abscess cyst aspiration DATE: 09/29/2020 15:14 INDICATION: Right breast abscess TECHNIQUE: The purpose of the procedure, technique and potential complications including bleeding wer e discussed with the patient. The patient verbalized understanding and gave consent. Timeout procedure confirmed proper patient, procedure and sidedness. The skin of the left breast was prepared with sterile Betadine. Sterile drapes were applied. 1% lidoc brittany local anesthetic was administered to the skin at the lateral mid to upper left breast. 1% lidoca ine and epinephrine was administered to the deeper subcutaneous tissues. Using ultrasound guidance, a n 18-gauge spinal needle was introduced into the large irregular at least 3.2 x 1.4 x 3.6 cm complica kimberly left breast fluid collection, yielding 6 cc of greenish-michael pus. The patient tolerated the procedure very well, without complaint or apparent complication. IMPRESSION: Successful aspiration of 6 cc of pus from left breast abscess for laboratory culture and sensitivity testing. Reviewed, dictated and finalized at [facility]. Reviewed, dictated and finalized at [facility]. IMPRESSION: Successful aspiration of 6 cc of pus from left breast abscess for l aboratory culture and sensitivity testing.
== END 2020-09-29 13:43 | disposition home or self-care (01) ==
PROVIDERS: PCP Obstetrics & Gynecology; Visit Provider Surgery
DX: N61.1 Abscess of the breast and nipple (principal)
CPT/HCPCS: 76942; 87070; 87075; 87076; 87205

== ENCOUNTER 2020-10-12 12:38 | Day surgery (SDC) | payer OTHER, SELFPAY ==
[2020-10-12] VITALS (8 sets, daily range): BP systolic 94–144; BP diastolic 57–80; PULSE 67–93; RESP 12–18; TEMP 36.6–37.1; O2SAT 97–100; BMI 35.4
--- NOTE | 2020-10-12 13:12 | WPDANESEPPF ---
Anes - Initial Pre Proc Eval Procedure: Operation Date: 10/12/20 13:45 Proposed Procedures p Incision and Drainage of Left Breast Abscess(Left) - Maxwell Nguyen MD Date/Time: 10/12/20 13:12 Surgeon: Maxwell Nguyen MD Pre Op Diagnosis: left breast abscess Patient Data Age: 25 Gender: F Height: Weight: Allergies Allergy/AdvReac Type Severity Reaction Status Date / Time amoxicillin Allergy Mild HIVES Verified 10/12/20 12:56 Home Medications Medication Instructions Recorded Confirmed Type sertraline [Zoloft] 25 mg PO HS 01/31/20 10/12/20 History acetaminophen 500 mg tablet 500 mg PO Q6H PRN 09/11/20 10/12/20 History clindamycin HCl 300 mg capsule 300 mg PO Q8H #21 cap 10/09/20 10/12/20 Rx vit 65-iron fum,ps-FA 1 cap PO DAILY 10/12/20 10/12/20 History Patient hx anesthesia problems: none Family hx anesthesia problems: none PMFSH Past Medical History Medical History History of breast abscess 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 Surgical History Surgical History Hx of tonsillectomy Subareolar breast abscess Family History Family History Father Hypertension Other Cancer determined by pancreatic biopsy Social History Social History Smoking status: Never smoker Second hand tobacco smoke exposure: No Alcohol intake: never Substance use: never Substance use type: marijuana Other substance usage details: at times, not recent 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 Gender identity (if verbalized by the patient): Female Spiritual care concerns: No Anes - Eval Final PreProcedure Day of Procedure 10/12/20 13:12 Patient weight: obese Heart: regular rate and rhythm Lungs: clear to auscultation and normal air movement Airway: Mallampati scale class II Neurological: alert and oriented Last oral intake: 6 hours (banana at 8:00) ASA classification: III Emergent: no Anesthetic plan: proceed Anesthesia type and monitoring: general ETT Other findings: 29 weeks - RSI Informed Consent: The patient's anesthetic plan and its attendant risks and benefits were discussed with the patient/family/POA. Questions were solicited and answers provided to the satisfaction of the patient/family/POA.
[2020-10-12] MEDS: LACTATED RINGERS 1,000 ML 30 ML IV CONT (13:26)
--- NOTE | 2020-10-12 13:39 | SUR.PREOP ---
FHT 145.
--- NOTE | 2020-10-12 13:54 | WPDHPUPDATE1 ---
History and Physical Update Update Date/Time: 10/12/20 13:54 History and Physical has been reviewed, including an updated exam of the patient. There are NO changes in the patient's condition. Risks, benefits, and alternatives of a left breast abscess incision and drainage has been discussed and questions answered. Patient agrees to proceed with procedure.
--- NOTE | 2020-10-12 14:54 | SUR.PREOP ---
Resting without complaints or needs.
[2020-10-12] MEDS: CLINDAMYCIN 900 MG/D5W 50 ML 900 MG/50 ML PIGGYBACK 50 MG IVPB (15:35)
[2020-10-12] MEDS: LIDO 2%/EPINEPHRINE 1:100,000 20 ML VIAL INFILTRATE (16:21)
--- NOTE | 2020-10-12 16:36 | PM.PROC ---
Procedure Note - Detailed Date of procedure: 10/12/20 Pre-op diagnosis: left breast abscess New, under upper inner left nipple Post-op diagnosis: same Procedure performed: Incision drainage of left breast abscess Description of procedure: Patient was seen again in the preop area and the left breast marked at the site of planned incision and drainage. Patient was taken the recovery room and anesthesia induced via oral endotracheal tube by [facility] anesthesia department The left breast was thoroughly prepped and draped and then exposed for the procedure. I outlined in black indelible ink the area of redness on the breast. This is mainly just superior and medial to the nipple. I marked out a proposed incision along the nipple-areolar border upper inner quadrant approximately from the 10 o'clock position to the 1 o'clock position at the edge of the color change of the areola. Local anesthetic using 2% xylocaine with epinephrine was placed into the skin in this area and a 18 gauge needle on a 5 cc syringe was carefully placed through this yaima and I directed it initially superiorly and no abscess was found. I then directed it directly posterior and slightly toward the upper inner quadrant and we obtained yellow purulence and about 1 cc was aspirated. This was applied to a culture swab and the culture was sent for Gram stain, aerobic and anaerobic C&S with a note for the lab to definitely do sensitivities on anything this grown if possible. Syringe was detached with a needle left in place. I then made the curvilinear incision right along the nipple-areolar border and carried down until we ran into the purulent fluid within a approximately 2 cm rounded cavity. There was induration in the surrounding tissue. This time I took some biopsies from the abscess wall within the underlying breast tissue and it was sent for pathology. As we did this we did enter the abscess and there was a flow of yellowish green pus. Estimated volume of purulence within the cavity was about 3 cc. There was still some surrounding induration of the tissues. Bovie cautery was ease for hemostasis. We then established hemostasis in the wound with Bovie cautery. Then we irrigated with 120 cc of normal saline. Once this was irrigated out well I put a finger in to be sure that all the adhesions in the abscess were broken up. In doing this I found that the cavity tunneled somewhat inferiorly and medially underneath the nipple and when I pull push my finger in this hard right in the center of the nipple there was a little bit of cloudy red fluid that exudate from the nipple. When looking closely at the nipple appears that there is some frondlike verrucal skin lesion in this area. We will ask the patient to begin placing some bacitracin on this at home and cleansing it b.i.d. following this we placed some local anesthetic on the Aquacel advantage silver rope and then 18 in of this was packed into this cavity folding the last part back and forth at the wound skin level to keep the wound open hemostasis appeared to be good at the end of the procedure. Some Telfa was placed over the nipple itself and then a folded set of 4x4s super sponges were placed over the wound and the nipple and this was taped in place with Medipore tape. Patient tolerated the procedure well. Estimated blood loss approximately 10 cc. Implants: None Anesthesia: GETA Surgeon: Maxwell Nguyen MD Manager Front Office: Shaye Hickman RN,CHILD WELFARE CONSULTANT Estimated blood loss (mL): 10 Drains: No Packing: Yes (Aquacel advantage silver rope eating inches) Pathology: yes (Samples of breast tissue from abscess wall.) Complications: No immediate complications Condition: stable Disposition: PACU Findings: A 2 x 2 cm abscess deep to the upper inner portion of the nipple-areolar complex.
== END 2020-10-12 18:04 | disposition home or self-care (01) ==
PROVIDERS: Visit Provider Surgery
PROC: (CPT 10061; principal; 2020-10-12 13:45)
DX: N61.1 Abscess of the breast and nipple (principal); N60.22 Fibroadenosis of left breast; E66.9 Obesity, unspecified; Z68.35 Body mass index [BMI] 35.0-35.9, adult
CPT/HCPCS: 10061; 87070; 87075; 87076; 87181; 87185; 87205; 88304; 88305; A9270; J2704; J3010; J7120

== ENCOUNTER 2020-12-07 18:25 | Outpatient (RCR) | payer OTHER, SELFPAY ==
--- NOTE | 2020-12-07 19:31 | OBADM ---
This patient, Mary Beth Chisholm, admitted to the OB room for observation. Patient/family oriented to hospital policies and general routines including ID bracelet, bed and alarms, visiting hours, pain management, procedures, bathroom and other care routines, personal items, smoking policy, room service/diet, and visiting hours. Patient/Family are encouraged to report perceived risks to care and to ask questions if they do not understand what they are told or what they should do.
--- NOTE | 2020-12-07 19:31 | PC.NURSE ---
ROM PLUS TEST RESULT WAS NEGATIVE
--- NOTE | 2020-12-07 19:39 | PC.NURSE ---
UPDATED DR STANLEY ON PT NST AND ROM PLUS RESULTS. ORDER GIVEN TO D/C PT HOME. PT GIVEN VERBAL INSTRUCTIONS ON WHEN TO RETURN TO HOSPITAL, INSTRUCTIONS ON THINGS TO DO IF FEELING DFM. PT VERBALIZED UNDERSTANDING.
[2020-12-07 19:42] VITALS: BP 120/80; PULSE 66
== END 2020-12-07 19:40 | disposition home or self-care (01) ==
LOC: ANHOBOP 18:25
PROVIDERS: Visit Provider Obstetrics & Gynecology
DX: O36.8130 Decreased fetal movements, third trimester, not applicable or unspecified (principal); Z3A.37 37 weeks gestation of pregnancy
CPT/HCPCS: 59025

== ENCOUNTER 2020-12-20 10:43 | Observation (INO) | payer OTHER, SELFPAY ==
--- NOTE | 2020-12-20 10:43 | OBADM ---
This patient, Mary Beth Chisholm, admitted to the OB room Labor/Delivery/Recovery 102 for observation. Patient/family oriented to hospital policies and general routines including ID bracelet, bed and alarms, visiting hours, pain management, procedures, bathroom and other care routines, personal items, smoking policy, room service/diet, and visiting hours. Patient/Family are encouraged to report perceived risks to care and to ask questions if they do not understand what they are told or what they should do.
[2020-12-20 11:00] VITALS: BMI 37.3
--- NOTE | 2020-12-22 07:22 | PM.OBTRLD ---
OB - Triage/Final Diagnosis Visit Information Date of evaluation: 12/20/20 Reason for evaluation: threatened labor Comments/Additional reasons for admission: I have assessed the risk for this patient, Mary Beth Alicia Martineztory, and determined that she would benefit from observation care.
== END 2020-12-20 14:05 | disposition home or self-care (01) ==
PROVIDERS: Admitting Provider Obstetrics & Gynecology; Visit Provider Obstetrics & Gynecology
DX: O47.1 False labor at or after 37 completed weeks of gestation (principal); Z3A.38 38 weeks gestation of pregnancy
CPT/HCPCS: G0378; G0379

== ENCOUNTER 2020-12-20 23:20 | Inpatient (IN) | payer OTHER, SELFPAY ==
[2020-12-20 23:37] VITALS: BP 147/97; PULSE 106
[2020-12-20 23:46] VITALS: BP 136/83; PULSE 74
[2020-12-21] VITALS (19 sets, daily range): BP systolic 102–155; BP diastolic 64–118; PULSE 60–102; RESP 16–20; TEMP 35.9–37.6; O2SAT 100
[2020-12-21] MEDS: LACTATED RINGERS 1,000 ML 125 ML IV CONT (00:12)
[2020-12-21] MEDS: ONDANSETRON INJ 4 MG/2 ML VIAL IV PUSH (00:13)
[2020-12-21 00:16] LABS: Basophils Absolute Auto 0.1 K/mm3 (0.0-0.1); Basophils Percent Auto 0.2 % (0.2-1.2); Eosinophils Percent Auto 0.2 % (0-4.4); Hematocrit 39.3 % (37.0-47.0); Hemoglobin 13.1 g/dL (12.0-15.0); Immature Granulocyte Percent A 0.5 % (0-0.5); Lymphocytes Absolute Auto 1.97 K/mm3 (0.9-3.2); Lymphocytes Percent Auto 9.5 % (18.3-44.2); Mean Corpuscular HGB Conc 33.3 g/dl (32-36); Mean Corpuscular Hemoglobin 30.8 pg (26-34); Mean Corpuscular Volume 92.5 fl (80-100); Monocytes Absolute Auto 1.4 K/mm3 (0.1-0.6); Monocytes Percent Auto 6.6 % (2.6-8.5); Neutrophils Absolute Auto 17.3 K/mm3 (1.3-6.7); Platelet Count Result 193 k/mm3 (150-375); Red Blood Count 4.25 M/mm3 (4.2-5.4); Red Cell Distribution Width 13.5 % (11.5-14.5); White Blood Count 20.8 K/mm3 (4.5-10.0)
--- NOTE | 2020-12-21 00:28 | LDADM ---
This patient, Mary Beth Chisholm, was admitted to Labor/Delivery/Recovery 105 on 12/20/20 at 23:20. Plans for labor, pain management and were discussed with patient. Patient/family oriented to hospital policies and general routines including ID bracelet, bed and alarms, visiting hours, pain management, procedures, bathroom and other care routines, personal items, smoking policy, room service/diet and guest tray routines, security routines, and visiting hours. Patient/Family are encouraged to report perceived risks to care and to ask questions if they do not understand what they are told or what they should do. See OBIX for further documentation.
[2020-12-21] MEDS: fentaNYL CITRATE INJ (*CRX) 100 MCG/2 ML VIAL 50 MCG IV PUSH ×2 (00:41→01:35)
--- NOTE | 2020-12-21 01:48 | WPDOBADMIT ---
Obstetrics - Admit Note Admission Note: record reviewed. No pertinent additions to the history and/or any subsequent changes in the physical findings that are not consistent with the expected course of the were found. pt arrived in labor and then SROM ,clear fluid Additions to the history and/or subsequent changes in the physical findings follow. None.
--- NOTE | 2020-12-21 03:44 | PM.OBPRVD ---
OB - Delivery Note Procedure Delivery date: 12/21/20 Procedure: vaginal delivery Intrapartal events: None Delivery augmentation: rupture of membranes (forebag ruptured when 10 cm ) Delivery monitor: external FHT and external uterine Route of delivery: other Episiotomy description: Midline Laceration Description: None Specimen: No Quantitative Blood Loss (ml): 220 Anesthesia type: Epidural Disposition: floor [place] Baby Date of : 12/21/20 Time of : 03:24 Weeks of gestation at delivery: 39 Infant gender: Female Weight (pounds): 6 Weight (ounces): 0 presentation: vertex position: Left Occiput Anterior Placenta delivery description: Spontaneous cord vessel description: 3 Vessels, Nuchal Cord (x2), Tight, Clamped/Cut and Around Body x1 score one minute: 8 score five minutes: 8 Narrative: cord clamped and cut on perineum, mother and baby in stable condition
[2020-12-21] MEDS: IBUPROFEN 600 MG TABLET PO ×3 (04:53→19:01)
[2020-12-21 09:21] LABS: Rapid Plasma Reagin Non-Reactive (NonReactive)
[2020-12-21] MEDS: SERTRALINE HCL 25 MG TABLET PO (11:40)
--- NOTE | 2020-12-21 14:54 | PCCCNOTE ---
Care Coordination. Patient referred to CC for marijuana use during . Meconium pending on baby and no UDS for mother on admission. Met with pt. at bedside. She reports using it during , so she could eat and sleep as she was so sick in the beginning. Pt. reports having good family support and all necessary baby care items. She is setup with [facility] and plans to notify them that she has had baby. Pt. plans to return home home with her /FOB. She denies any resource needs. Spoke with Meenakshi Campo from [facility] Hotline (Intake ID:[id number]) who reports will take pt.'s situation as information only whether infant does become positive for marijuana or not. No further CC needs.
--- NOTE | 2020-12-21 15:16 | PC.NURSE ---
Consulted with patient, reviewed feeding cues, frequencies, duration of feedings, feeding elimination flow sheet, and signs of adequate intake. Demonstrated stimulation techniques to wake for feeding. Assisted with to breast. Reviewed positioning/alignment, holding breast and asymmetrical latch on. was able to latch correctly first with the nipple shield and then later without. nursed eagerly, with steady draws and occasional swallowing noted. Reviewed signs of a correct latch, effective nursing and suck swallow ratio. was able to maintain latch without discomfort to mother. Nipple care reviewed. Instructed mother to call out for RN assistance if she is unable to latch for feeding or she has discomfort with nursing. Instructed feeding should be initiated three hours from start of last feeding or if feeding cues are noted before. Mother voiced understanding of information shared.
[2020-12-21] MEDS: ACETAMINOPHEN 325 MG TABLET 650 MG PO (19:01)
[2020-12-21] MEDS: TETANUS,DIPHTHERIA,AC PERTUSSIS ADULT (0.5 ML) BOOSTRIX IM (19:02)
[2020-12-22 00:50] VITALS: BP 125/78; PULSE 61; RESP 18; TEMP 36.8; O2SAT 100
[2020-12-22] MEDS: ACETAMINOPHEN 325 MG TABLET 650 MG PO (02:59)
[2020-12-22 05:10] LABS: Hematocrit 30.7 % (37.0-47.0); Hemoglobin 10.1 g/dL (12.0-15.0)
[2020-12-22 07:50] VITALS: BP 127/79; PULSE 66; RESP 16; TEMP 36.9; O2SAT 100
--- NOTE | 2020-12-22 07:50 | PM.OBPNVD ---
OB - PN: Subj Subjective Date/time seen: 12/22/20 07:50 Patient comments: no complaints baby status: doing well [place] feeding status: exclusively breast feeding OB - PN: Obj Data Labs CBC & Chem 7: 12/22/20 03:45 Labs: Laboratory Results - last 24 hr 12/20/20 12/22/20 23:56 03:45 Hgb 10.1 L D Hct 30.7 L RPR Non-reactive OB - PN A/P Plan day: 2 Plan: routine care and discharge home Time Spent With Patient Time: Total time spent is greater than 50% in coordination of care (as documented) at patient's floor/unit and/or counseling patient: Review of Systems Review of Systems: All systems reviewed & are unremarkable except as noted in HPI and below Exam Const: General: cooperative Neuro: General: patient oriented x3 Psych: Affect: normal affect Attitude: cooperative Thought process: Normal thought process present Thought content: Yes Normal thought content present Insight: Good insight present (Psych) Judgement: Good judgement present (Psych)
--- NOTE | 2020-12-22 07:52 | PM.OBDSVD ---
DS: Admitting Diagnosis Admitting Diagnosis Admitting Diagnosis: labor, SROM OB - DS: Summary OB Procedures : None OB Procedures Intrapartum: Spontaneous Vag Delivery OB Procedures: : None Time Spent with Patient Time attestation: Total time spent providing and/or coordinating discharge services: DS: Data Data Completed and Pending Labs on day of discharge: Labs from last 24 hours 12/22/20 12/20/20 03:45 23:56 Hgb 10.1 L D Hct 30.7 L RPR Non-reactive Discharge Plan Discharge Attending physician on discharge: Breezy Renner Discharging Clinician: An Albarado Patient Disposition: Home, Self-Care Activity: pelvic rest Diet: regular Patient Instructions: Antibiotic Form Stand Alone Forms: General Discharge Information Follow-up/Referrals: An Albarado CNM [Certified Nurse Manager Fraud] - 4 Weeks Discharge Medications: New ibuprofen 600 mg Tablet 600 mg PO Q6H PRN (Reason: Cramping) Qty: 30 RF: 0 Continued sertraline [Zoloft] 25 mg Tablet 25 mg PO DAILY RF: 0 PNV cmb#95-ferrous fumarate-FA [] 28 mg iron- 800 mcg Tablet 1 tablet PO DAILY RF: 0 Date of admission: 12/20/20 23:20 Primary Care Provider: PHYSICIAN,ORACLE DISTRIBUTION CONSULTANT Admitting Provider: Breezy Renner Attending physician on admission: Breezy Renner Condition: Stable
[2020-12-22] MEDS: MULTIVIT/MIN/PREN/FOL AC/IRON TABLET 1 TAB PO (09:05)
[2020-12-22] MEDS: SERTRALINE HCL 25 MG TABLET PO (09:05)
--- NOTE | 2020-12-22 09:05 | PC.NURSE ---
Patient viewed the discharge video Mother & Baby Care, The First Two Weeks . Patient was given the opportunity and encouraged to ask questions. Patient verbalized understanding of information shared and has been given the mother/baby guide for home reference.
--- NOTE | 2020-12-22 09:45 | PC.NURSE ---
Consult with pt., mother reports she has had an abscess on left breast and only feeds on right. Mother has had the abscess drained twice and continues with a pussy nipple discharge. Mother is not pumping on left breast at this time. Discussed the option of initiating pumping to stimulate milk supply and discarding milk. Mother states her surgeon approved pumping. Last surgery was the end of September and incision is well healed. Mother will offer formula after feeding, infant will freq take up to 5 mls and mother will increase as required. Reviewed feeding cues, frequencies, duration of feedings, feeding elimination flow sheet, and signs of adequate intake. Demonstrated stimulation techniques to wake for feeding. . Reviewed positioning/alignment in cross cradle, holding breast in ?U? hold and guided asymmetrical latch on. Infant able to latch correctly. Infant nursed eagerly, with steady draws and frequent swallowing noted. Reviewed signs of a correct latch, effective nursing and suck swallow ratio. Suggested mother stimulate while feeding to increase stimulate, increase intake and to assist with maintaining deep latch. would slip to shallow latch, mother reports tenderness. Demonstrated how to adjust latch more deeply while feeding. Mother reports she can feel change in latch and has no tenderness. Nipple care reviewed of lanolin after feedings, warm compresses as needed. Mother is able to independently latch infant with appropriate positioning/alignment. She denies any nipple discomfort, is feeding as required and waking to feed if needed. has had at least 8 effective feedings in the past 24 hours, and is currently meeting outcomes for weight, output, jaundice and feeding frequencies. Mother states she feels confident to continue effective offering supplementation as needed at home. Reviewed transition to breast milk, signs of adequate intake, and engorgement/relief. Instructed to call ICP if intake/output less than required. Reviewed regular medications mother is taking. Information provided per Cindy. Reviewed community resources on the [facility] website and in the Mom/Baby guide. Information on outpatient services provided. Mother has no further questions at this time.
[2020-12-25 11:36] VITALS: BP 131/92; PULSE 61; RESP 16; TEMP 36.9; O2SAT 100
== END 2020-12-22 11:27 | disposition home or self-care (01) | DRG 807 ==
LOC: ANHLDR 23:56 → ANHOB2 12-21 05:56
PROVIDERS: Advanced Practice Midwife; Admitting Provider Obstetrics & Gynecology; Visit Provider Obstetrics & Gynecology
DX: O69.2XX0 Labor and delivery complicated by other cord entanglement, with compression, not applicable or unspecified (principal); Z37.0 Single live birth; Z3A.39 39 weeks gestation of pregnancy
CPT/HCPCS: 36415; 85014; 85018; 85025; 86592; 86850; 86900; 86901; 90715; A9270; J2405; J3010; J7120

== ENCOUNTER 2020-12-27 15:50 | Outpatient (CLI) | payer OTHER, SELFPAY ==
[2020-12-27 16:15] VITALS: BP 135/81; PULSE 60
[2020-12-27 16:16] VITALS: BP 139/72; PULSE 57
[2020-12-27 16:26] LABS: Basophils Percent Auto 0.4 % (0.2-1.2); Eosinophils Absolute Auto 0.2 K/mm3 (0-0.3); Eosinophils Percent Auto 2.5 % (0-4.4); Hematocrit 37.2 % (37.0-47.0); Hemoglobin 12.2 g/dL (12.0-15.0); Immature Granulocyte Absolute 0.05 K/mm3 (0.00-0.031); Immature Granulocyte Percent A 0.5 % (0-0.5); Lymphocytes Absolute Auto 2.67 K/mm3 (0.9-3.2); Lymphocytes Percent Auto 28.5 % (18.3-44.2); Mean Corpuscular HGB Conc 32.8 g/dl (32-36); Mean Corpuscular Hemoglobin 30.2 pg (26-34); Mean Corpuscular Volume 92.1 fl (80-100); Mean Platelet Volume 9.9 fl (7.4-10.4); Monocytes Absolute Auto 0.7 K/mm3 (0.1-0.6); Monocytes Percent Auto 7.6 % (2.6-8.5); Neutrophils Absolute Auto 5.7 K/mm3 (1.3-6.7); Neutrophils Percent Auto 60.5 % (45.5-73.1); Platelet Count Result 261 k/mm3 (150-375); Red Blood Count 4.04 M/mm3 (4.2-5.4); White Blood Count 9.4 K/mm3 (4.5-10.0)
[2020-12-27 16:31] VITALS: BP 133/84; PULSE 59
[2020-12-27 16:31] LABS: Alanine Aminotransferase 18 U/L (4-35); Albumin Level 4.1 g/dL (3.5-5.1); Alkaline Phosphatase 120 U/L (38-126); Anion Gap 6 mmol/L (8-16); Aspartate Amino Transferase 30 U/L (14-36); Blood Urea Nitrogen 10 mg/dL (7-17); Calcium 9.1 mg/dL (8.4-10.2); Carbon Dioxide 27 mmol/L (22-30); Chloride 109 mmol/L (98-107); Estimated Glomerular Filt Rate > 60; Glucose 87 mg/dL (65-105); Potassium 3.8 mmol/L (3.4-5.0); Sodium 142 mmol/L (137-145); Uric Acid 4.7 mg/dL (2.5-7.5)
[2020-12-27 16:44] VITALS: BP 140/93; PULSE 58
[2020-12-27 16:46] VITALS: BP 143/89; PULSE 55
[2020-12-27 16:50] VITALS: BP 139/72; PULSE 57; RESP 18; TEMP 36.6
--- NOTE | 2020-12-27 16:52 | PC.NURSE ---
If patient has a b/p cuff at home call office tomorrow, if they don't have them come in office of friday. Labs given to Ju Albarado along with pressures.
== END 2020-12-27 16:54 | disposition home or self-care (01) ==
LOC: ANHOBOP 15:56 → ANHLDR 15:56
PROVIDERS: Advanced Practice Midwife; Visit Provider Obstetrics & Gynecology
DX: O13.9 Gestational [pregnancy-induced] hypertension without significant proteinuria, unspecified trimester (principal); Z3A.00 Weeks of gestation of pregnancy not specified
CPT/HCPCS: 36415; 80053; 84550; 85025; 99199

== ENCOUNTER 2022-01-03 15:44 | Outpatient (CLI) | payer OTHER, SELFPAY ==
--- NOTE | ~2022-01-03 | US_ITS ---
US venous doppler LE RT DATE: 01/03/2022 16:41 INDICATION: Pain and swelling of right lower extremity TECHNIQUE: Real-time and color flow imaging and Doppler analysis of the veins of the right lower extr emity COMPARISON: None FINDINGS: There is spontaneous and phasic flow and normal augmentation and color flow signal and norm al compression of the deep veins of the right lower extremity. IMPRESSION: No evidence of deep venous thrombosis of right lower extremity Dr. Vyas telephoned the report on 01/03/2022 at 1646 hours to [facility] Yobani Trujillo Reviewed, dictated and finalized at [facility]. Reviewed, dictated and finalized at [facility]. IMPRESSION: No evidence of deep venous thrombosis of right lower extremity Dr. Vyas telephoned the report on 01/03/2022 at 1646 hours to [facility] Naty Trujillo Transaction Coordinator
== END 2022-01-03 15:45 | disposition home or self-care (01) ==
PROVIDERS: PCP Nurse Practitioner Family; Visit Provider Nurse Practitioner Family
DX: M79.604 Pain in right leg (principal); M79.89 Other specified soft tissue disorders
CPT/HCPCS: 93971

== ENCOUNTER 2022-06-15 17:03 | Emergency (ER) | payer BC, SELFPAY ==
--- NOTE | 2022-06-15 17:26 | ED.URI ---
HPI - URI/Sore Throat General Chief Complaint: Upper Respiratory Infection Stated Complaint: Sore Throat, Bodyaches/ Fever Time Seen by Provider: 06/15/22 17:30 Source: patient, RN notes reviewed and old records reviewed Mode of arrival: ambulatory Limitations: no limitations History of Present Illness HPI Narrative: 27-year-old female presents to the [facility] with complaints of sore throat, body aches, fever since Friday. Has been taking Mucinex Cough and cold with minimal relief. MD elicited complaint: fever and sore throat Related Data Home Medications Medication Instructions Recorded Confirmed vit no.65-iron fum,ps 40 1 cap PO DAILY 10/12/20 12/13/20 mg iron-folic acid 1.25 mg capsule Allergies Allergy/AdvReac Type Severity Reaction Status Date / Time amoxicillin Allergy Rash Verified 09/12/21 11:09 Review of Systems Review of Systems: All systems reviewed & are unremarkable except as noted in HPI and below Constitutional: Constitutional: Reports as per HPI, Reports fatigue and Reports fever(s) Eyes: Eyes: Reports no additional eye complaints ENT: Reports as per HPI and Reports sore throat Cardiovascular: Cardiovascular: Reports no additional cardiovascular complaints, Denies chest pain and Denies dyspnea Respiratory: Respiratory: Reports no additional respiratory complaints, Denies chest congestion, Denies cough and Denies dyspnea Gastrointestinal: Gastrointestinal: Reports no additional gastrointestinal complaints, Denies abdominal pain, Denies nausea and Denies vomiting Musculoskeletal: Musculoskeletal: Reports no additional musculoskeletal complaints Integumentary/Breasts: Skin/Breast: Reports system reviewed and no additional complaints, except as docu Neurologic: Reports system reviewed and no additional complaints, except as documented Psychiatric: Psychiatric: Reports no additional psychiatric complaints Allergic/Immunologic: Allergic/Immunologic: Reports no additional allergic/immunologic complaints [facility] Past Medical History Medical History History of breast abscess 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 Surgical History Surgical History Hx of tonsillectomy Subareolar breast abscess Family History Family History Mother Hypertension Father Hypertension Father Hypertension Other Cancer determined by pancreatic biopsy Social History Social History Smoking status: Never smoker Second hand tobacco smoke exposure: No Alcohol intake: never Substance use: never Substance use type: marijuana Other substance usage details: at times, not recent 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 There is no relevant family history pertinent to the patient complaint. Exam Const: General: cooperative, healthy appearing, comfortable, no acute distress, well developed, alert and well nourished Nutritional Appearance: well nourished Orientation/consciousness: patient oriented x3 Limitations: no limitations HENMT: Head: normal to inspection Ears: hearing grossly normal bilaterally and external ears normal Face/Nose/Sinus: Normal external nose present, Normal nares present, Normal nasal mucous membranes and turbinates present and normal facial exam Face and sinus: normal facial exam Mouth: Yes Normal oral and palatal mucosa present, Yes lip normal and Yes moist mucous membranes Throat: uvula midline, posterior oropharynx abnormal erythema; no warner
[2022-06-15 17:31] VITALS: BP 147/104; PULSE 90; RESP 16; TEMP 38.3; O2SAT 99
== END 2022-06-15 17:49 | disposition home or self-care (01) ==
PROVIDERS: Emergency Provider Nurse Practitioner; PCP Nurse Practitioner Family
DX: J02.9 Acute pharyngitis, unspecified (principal); Z20.822 Contact with and (suspected) exposure to COVID-19
CPT/HCPCS: 87081; 87426; 87804; 99213; C9803; G0463

== ENCOUNTER 2022-07-15 12:51 | Outpatient (CLI) | payer OTHER, SELFPAY ==
--- NOTE | ~2022-07-15 | US_ITS ---
US breast LT limited DATE: 07/15/2022 14:10 INDICATION: Palpable pole lump, left breast. History of intermittent left breast lump for years. Hist ory of abscess one to 2 years ago. TECHNIQUE: Real-time imaging and color flow imaging targeting the area of clinical complaint of breas t lump in the 2:00 region COMPARISON: None FINDINGS: No suspicious mass or shadowing, cyst, unusual vascularity or other significant abnormality is detected. IMPRESSION: BI-RADS Category 1: Negative Reviewed, dictated and finalized at [facility]. Reviewed, dictated and finalized at location [facility]. ANDRA ARCHITECT
== END 2022-07-15 12:52 | disposition home or self-care (01) ==
PROVIDERS: PCP Nurse Practitioner Family; Visit Provider Nurse Practitioner
DX: N63.20 Unspecified lump in the left breast, unspecified quadrant (principal)
CPT/HCPCS: 76642

== ENCOUNTER 2024-12-20 13:32 | Emergency (ER) | payer BC, SELFPAY ==
[2024-12-20 13:44] VITALS: BP 153/103; PULSE 77; RESP 20; TEMP 36.9; O2SAT 99
--- NOTE | 2024-12-20 13:47 | ED.SKABFB ---
HPI - Skin/Abscess/Foreign Bdy General Chief complaint: Skin/Abscess/Foreign Body Stated complaint: Rash Time Seen by Provider: 12/20/24 13:45 Source: patient Mode of arrival: ambulatory Limitations: no limitations History of Present Illness HPI narrative: Enrique is a 29-year-old female patient presenting to the clinic today with complaints of a red, raised, itchy rash to her left abdomen and bilateral arms. She reports she stayed in a hotel over the weekend and developed a rash. She is very sensitive to different detergents. States the rash does burn if she scratches it a lot. Denies any fevers, chills, body aches. Related Data Home Medications ?Medication ?Instructions ?Recorded ?Confirmed ?Last Taken ?Type vit no.65-iron fum,ps 40 1 cap PO DAILY 10/12/20 12/13/20 10/11/20 History mg iron-folic acid 1.25 mg capsule Allergies Allergy/AdvReac Type Severity Reaction Status Date / Time amoxicillin Allergy Rash Verified 12/20/24 13:34 Review of Systems Review of Systems: Pertinent positives per HPI. Patient denies any fever, chills, headache, visual changes, dizziness, cough, runny nose, sore throat, shortness of breath, chest pain, palpitations, nausea, vomiting, diarrhea, constipation, abdominal pain, or any urinary issues. 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 Surgical History Surgical History Subareolar breast abscess Hx of tonsillectomy Family History Family History Mother Hypertension Father Hypertension Father Hypertension Other Cancer determined by pancreatic biopsy Social History Social History Smoking status: Never smoker Second hand tobacco smoke exposure: No Alcohol intake: never Substance use: never Substance use type: marijuana Other substance usage details: at times, not recent Living arrangements: with family 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 There is no relevant family history pertinent to the patient complaint. Exam Narrative: General: Well-developed, well nourished, in no apparent distress Head: Normocephalic, atraumatic. Cardio: Regular rate and rhythm, s1 and s2 normal, no murmur appreciated. Resp: Clear to auscultation bilaterally, no rhonchi, rales, wheezing or rubs. Integumentary: Kula, warm, and dry, intact without lesion, red, raised, scaly, itchy rash to the left lateral abdomen, flexor surface of the right elbow, and to the left forearm Course Course Emergency Course: Portions of this record may have been created with voice recognition software. Level of Care: Express Care Visit Vital Signs Vital signs: Vital Signs Temperature 36.9 C 12/20/24 13:44 Pulse Rate 77 12/20/24 13:44 Respiratory Rate 20 12/20/24 13:44 Blood Pressure 153/103 H 12/20/24 13:44 Pulse Oximetry 99 12/20/24 13:44 Oxygen Delivery Room Air 12/20/24 13:44 Temperature 36.9 C 12/20/24 13:44 Pulse Rate 77 12/20/24 13:44 Respiratory Rate 20 12/20/24 13:44 Blood Pressure 153/103 H 12/20/24 13:44 Pulse Oximetry 99 12/20/24 13:44 Oxygen Delivery Room Air 12/20/24 13:44 Vital signs reviewed MDM - Skin/Abscess/Foreign Bdy MDM Narrative Medical decision making narrative: At the time of visit patient is resting comfortably on the exam table. Patient appears to be nontoxic. Plan: I suspect patient has eczema. Prescription for prednisone and triamcinolone cream was sent to the pharmacy. Supportive measures were discussed with the patient and they voiced understanding discharge instructions and agrees to treatment plan. Return precautions reviewed Differential Diagnosis Differential diagnosis: Likely abscess of skin or subcutaneous tissue, viral exanthem, dermatophytosis, urticaria, herpes zoster, allergic reaction to drug, cellulitis, eczema, insect bites, impetigo and contact dermatitis Discharge Plan Discharge Clinical Impression: Eczema Qualifiers: Eczema type: unspecified Qualified Code(s): L30.9 - Dermatitis, unspecified Patient Disposition: Home Condition: Stable Instructions: Antibiotic Form, Eczema (ED) Additional Instructions: Apply triamcinolone cream as directed Take prednisone as directed Avoid hot showers May apply Aquaphor, Cetaphil, or Lubriderm lotion twice daily Avoid scratching and this causes rash to spread May take Benadryl 25-50mg every 6 hours as needed for itching. Follow up with your PCP in 3-5 days if symptoms persist or sooner if they worsen Go to the Emergency Room if symptoms worsen- fever, rash spreading with treatment, shortness of breath, tongue swelling, drooling, or chest pain Patient Language: Syriac Prescriptions: New triamcinolone acetonide 0.1 % cream 1 applic topical BID 7 Days Qty: 30 0RF prednisone 20 mg tablet 40 mg PO DAILY 5 Days Qty: 10 0RF No Action vit 65-iron fum,ps-FA 40 mg iron- 1.25 mg Capsule 1 cap PO DAILY Follow-up/Referrals: Phil,DO Flor [Primary Care Provider] - Time of Disposition: 13:48 Quality NIHSS Nursing Documentation ED NIHSS nursing documentation: reviewed/agree
== END 2024-12-20 13:56 | disposition home or self-care (01) ==
PROVIDERS: Emergency Provider Nurse Practitioner Family; PCP Internal Medicine
DX: L30.9 Dermatitis, unspecified (principal)
CPT/HCPCS: 99213; G0463

== ENCOUNTER 2025-04-25 08:09 | Day surgery (SDC) | payer BC, SELFPAY ==
--- OUTSIDE RECORDS SUMMARY | 2024-09-28 05:48 | XMS_ITS | Continuity of Care Document ---
Author Organization [facility] Address [address] [place] [address] Phone Care Team Providers Care Inductor Tester Name Role Phone Kris Bella MD, MD Unavailable Unavail able Allergies, Adverse Reactions, Alerts Substance Reaction Status Criticality amoxicillin Active No Information Medications Medication Instructions Dosage Effective Dates (start - stop) Status Comments Wellbutrin SR 100 mg tablet, 12 hr sustained-release take 1 tablet by oral route 2 times every day 100 MG - Active Zoloft 25 mg tablet take 1 tablet by ora l route every day 25 MG - Active Procedures Procedure Date Clsd trtmnt artclr Fx w/o vahid, topher Office/outpatient visit,[facility] 2024 BMI Documented Above Normal Limit F/U Pl an Doc Jarrod Loops Advance Directives Directive Yes / No Effective Date File Name No Information Encounters Encounter Description Practice Location Reason(s) For Visit Diagnoses Date Provider Providers Copied on Encounter [facility], [address] [place] [address], [id number], [place] tel:[phone] [facility] Nondisp fx of middle phalanx of right middle finger, 7thD 0 5 Jena Ponce. [address] [facility], [place] [address], [place], [place], [id number], [place]. tel:[phone] Office/outpat ient visit,[facility], [address] [place] [address], [id number], tel:[phone] [facility] Professional [facility] Right hand (chief complaint) Nondisplaced fracture of medial phalanx of right middle finger, initial encounter for closed fracture Jena Ponce. [address] [facility], [address], [place], [place], [id number], [place]. tel:[phone] Family History Family Member Type Diagnosis Age At Onset Mother Problem (finding) Hypertension Sister Problem (finding) Alcoholism Mother Problem (finding) Depression Sister Problem (finding) Depression Father Problem (finding) Alcoholism Father Problem (finding) Hypertension Payers Payer name Insurance type Covered green party ID Authoriza tion(s) [facility] [id number] Social History Type Description Quantity Date Captured Comments Alcohol Use Details Unknown Caffeine Use Details Unknown Tobacco Use Status No Information Smoking Status No Information Sex Female Chief Complaint And Reason For Visit No Information Reason For Referral Reason For Referral No Information Plan Of Treatment Date Type Action Status Referral Ordered: X-ray exam finger(s), minimum 2 views RT middle ordered History Of Present Illness Encounter Date Complaint History Of Prese nt Illness Right hand Mary Beth presents t o the office today on September 20, 2024. She is here because of an injury to her right hand. Mary Beth injured her right hand 8 days ago on September 12, 2024. She explains that she fell in her shower at home. Mary Beth did not seek immediate medical attention, but 2 days later she went to [facility]. X-rays of her right hand were taken. Mary Beth tells me today that she was told at [facility] that she had fractures of the right third and fourth metacarpals. She was given a TKO style ulnar gutter splint. She is here now for further evaluation and treatment of her right hand. She has the x-ray images available on her mobile phone. I reviewed the x-ray images, but I do not appreciate any fractures of the right third or fourth metacarpals. Rather, she does have a nondisplaced intra-articular fracture involving the volar base of the middle phalanx of the right middle finger. She does report that her worst pain localizes to the right middle finger. She is here now for further evaluation and treatment of her right hand. Functional Status Date Functional Assessmen t No Information Instructions Date Instruction Additional Infor jaida No Information Assessments Type Assessment Date assessment Nondisp fx of middle phalanx of right middle finger, 7thD Patient Care Teams Name Effective Dates (start - stop) Status Members No Information
--- OUTSIDE RECORDS SUMMARY | 2024-09-28 05:48 | XMS_ITS | Continuity of Care Document ---
Author Organization [facility] Address [address] [place] [address] Phone Care Team Providers Care Drinking Water Technician Name Role Phone Kris Bella MD, MD [...] trtmnt artclr Fx w/o vahid, topher Office/outpatient visit,[facility] 2024 BMI Documented Above Normal Limit F/U Pl an Doc Jarrod Loops Advance Directives Directive Yes / No Effective Date File Name No Information Encounters Encounter Description Practice Location Reason(s) For Visit Diagnoses Date Provider Providers Copied on Encounter [facility], [address] [place] [address], [id number], [place] tel:[phone] [facility] Nondisp fx of middle phalanx of right middle finger, 7thD 0 5 Jena Ponce. [address] [facility] [place] [address], [place], [place], [id number], [place]. tel:[phone] Office/outpat ient visit,[facility], [address] [place] [address], [id number], tel:[phone] [facility] Professional [facility] Right hand (chief complaint) Nondisplaced fracture of medial phalanx of right middle finger, initial encounter for closed fracture Jena Ponce. [address] [facility], [address], [place], [place], [id number], [place]. tel:[phone] Family History Family Member Type Diagnosis Age At Onset Mother Problem (finding) Hypertension Sister Problem (finding) Alcoholism Mother Problem (finding) Depression Sister Problem (finding) Depression Father Problem (finding) Alcoholism Father Problem (finding) Hypertension Payers Payer name Insurance type Covered democrat ID Authoriza tion(s) [facility] [id number] Social History Type Description Quantity Date Captured [...]
[2025-04-25] VITALS (10 sets, daily range): BP systolic 136–159; BP diastolic 86–111; PULSE 73–109; RESP 16–20; TEMP 36.2–36.8; O2SAT 100
--- OUTSIDE RECORDS SUMMARY | 2025-04-25 08:15 | XMS_ITS | Clinical Summary ---
Author Organization [facility] Address [address] [place] [address] Care Team Providers Care Feed Handler Name Role Phone Kandi Alvarado NEELA Primary Care Provider [phone] Allergies Active Allergy Reactions Criticality Noted Date Comments Amoxicillin Other (see comment) 10/15/2014 Hives Medications sertraline 50 MG tablet Take 50 mg by mouth daily. 1 Active busPIRone 5 MG tabletIndication s:Anxiety Take 1 tablet (5 mg total) by mouth 3 (three) times daily as needed. 90 tablet 2 Active Additional Information Patient not taking.Reported on 08/05/2022 SHANE Cordero, (MEDROL DOSEPAK) 4 MG tabletIndication s:Acute non-recurrent pansinusitis 6 TABLETS ON DAY ONE, 5 TABLETS DAY TWO, 4 TABLETS DAY THREE, 3 TABLETS DAY FOUR, 2 TABLETS DAY FIVE, AND 1 TABLET DAY SIX 1 each 3 Active Active Problems Problem Noted Date Diagnosed Date COVID-19 vaccine series not administered 021 Anxiety 05/25/2021 Vitamin D deficiency 05/25/2021 History of gestational hypertension 05/25/2021 Class 1 obesity due to exces s calories without serious comorbidity with body mass index (BMI) of 32.0 to 32.9 in adult 05/25/2021 Post-tonsillectomy hemorrhage 12/05/2017 Immunizations Immunization Administration Dates Next Due Tdap (Generic) 12/21/2020 Family History Medical History Relation Comments Hypertension Father COPD Maternal Grandmother Hypertension Mother Cancer Paternal Grandfather Relation Status Comments Father Alive Maternal Grandfather Maternal Grandmother Mother Alive Paternal Grandfather (Age 53) Social History Tobacco Use Types Packs/Day Years Used Date Smoking Tobacco: Never Smokeless Tobacco: Never Alcohol Use Standard Drinks/Week Comments Yes 0 (1 standard drink = 0.6 oz pur e alcohol) social 2 x month PHQ-2 Answer Date Recorded PHQ-2 Score - If the patient scores above 3, please move on to questions 3-9 1 05/25/2021 Comments No Sex and Gender Information Value Date Recorded Sex Assigned at Not on file Legal Sex Female 8:17 AM CDT Gender Identity Not on file Sexual Orientation Not on file Last Filed Vital Signs Vital Sign Reading Time Taken Comments Blood Pressure 128/78 05/25/2021 7:33 AM ENVIRONMENTAL MARKETER Pulse 73 05/25/2021 7:33 AM ENVIRONMENTAL MARKETER Temperature 36.8 C (98.3 F) 05/25/2021 7:33 AM ENVIRONMENTAL MARKETER Respiratory Rate 16 05/25/2021 7:33 AM ENVIRONMENTAL MARKETER Oxygen Saturation 100% 05/25/2021 7:33 AM ENVIRONMENTAL MARKETER Inhaled Oxygen Concentration - - Weight 86.2 kg (190 lb) 05/25/2021 7:33 AM ENVIRONMENTAL MARKETER Height 162.6 cm (5' 4) 05/25/2021 7:33 AM ENVIRONMENTAL MARKETER Body Mass Index 32.61 05/25/2021 7:33 AM ENVIRONMENTAL MARKETER Plan of Treatment Health Maintenance Due Date Last Done Comments Annual Physical 1997 Hepatitis B Vaccines (1 of 3 - 19+ 3-dose series) 2013 HPV Vaccines (1 - 3-dose SCD M series) 2021 Cervical Cancer Screening Pa p with HPV Testing (Age 30 to 64) Every 5 Years 2024 02/02/2021 COVID-19 Vaccine (2024-2 6 season) 2025 Influenza Adult (#1) 2025 Cervical Cancer Screening Pa p Smear (Age 30 to 64) Every 3 Years 06/26/2025 06/26/2022, 06/05/2021, 02/02/2021 Cervical Cancer Screening wi th HPV 06/26/2025 DTaP, Tdap and Td Vaccines ( 2 - Td or Tdap) 12/21/2030 12/21/2020 Hepatitis C Completed 07/19/2021 Hepatitis A Vaccines Aged Out No long er eligible based on patient's age to complete this topic Meningococcal B Vaccine Aged Out No l onger eligible based on patient's age to complete this topic Meningococcal Vaccine Aged Out No mat adriana eligible based on patient's age to complete this topic Pneumococcal Vaccine: Pediatrics (0 to 5 Years) and At-Risk Patients (6 to 49 Years) Aged Out No longer eligible b ased on patient's age to complete this topic RSV Immunizations Under 20 Months Aged Out No longer eligible b ased on patient's age to complete this topic Procedures Procedure Name Priority Date/Time Associated Diagnosis Comments HEPATITIS C ANTIBODY Routine 07/19/2021 7:17 AM ENVIRONMENTAL MARKETER Need for hepatitis C screening test from Last 3 Months or Most Recently Relevant to Health Maintenance Results * HEPATITIS C ANTIBODY (07/19/2021 7:17 AM ENVIRONMENTAL MARKETER) HEPATITIS C AB NON-REACTI VE NON-REACT TOM 07/19/2021 6:09 PM ENVIRONMENTAL MARKETER [facility] Comment: ANTIBODIES TO HCV NOT DETECTED. DOES NOT EXCLUDE THE POSSIBILITY OF EXPOSURE TO HCV. 07/19/2021 7:17 AM ENVIRONMENTAL MARKETER [facility] Final Result [facility] [address] [place] [address], [id number] from Last 3 Months or Most Recently Relevant to Health Maintenance Insurance MEDICAID Care Teams Feed Handler Relationship Specialty Start Date End Date Kandi Alvarado FNP [address] [place] [address] PCP - General Nurse Practitioner Family 05/25/21
--- OUTSIDE RECORDS SUMMARY | 2025-04-25 08:15 | XMS_ITS | Encounter Summary ---
Author Organization [facility] Address [address] [place] [address] Care Team Providers Care Brazer Repair And Salvage Name Role Phone Kandi Alvarado Primary Care Provider Encounter Details Date Type Department Care Team (Late st Contact Info) Description 06/20/2021 [place] [employer] Message Enc [facility] Family & Internal Medicine [facility] [address] [place] [address] Kandi Alvarado FNP [address] [place], [place] [id number] Reschedule Social History Tobacco Use Types Packs/Day Years [...] on file Sexual Orientation Not on file COVID-19 Exposure Response Date Recorded In the last month, have you been in contact with someone who was confirmed or suspected to have Coronavirus / COVID-19? Yes 05/31/2021 8:23 AM COMMERCIAL LOAN UNDERWRITER documented as of this encounter Plan of Treatment Not on file documented as of this encounter Visit Diagnoses Not on filedocumented in this encounter Additional Health Concerns Infection Onset Date Last Indicated Resolved Time COVID-19 Rule Out 07/03/2021 07/03/202107/03/2021 1:41 PM COMMERCIAL LOAN UNDERWRITER COVID-19 Confirmed 07/03/2021 07/03/2021 12:34 AM COMMERCIAL LOAN UNDERWRITER Assessment Noted Time PHQ-9 Depression Total Score: 9 05/25/20 21 7:58 AM COMMERCIAL LOAN UNDERWRITER documented as of this encounter Care Teams [employer] Relationship Specialty Start Date End Date Kandi Alvarado FNP [address] [place] [address] PCP - General Nurse Practitioner Family 05/25/21 documented as of this encounter
--- OUTSIDE RECORDS SUMMARY | 2025-04-25 08:15 | XMS_ITS | Clinical Summary ---
Author Organization [facility] Address [address] [place] [address] Care Team Providers Care Geophysical Prospecting Surveyor Name Role Phone An Albarado NP Unavailable [phone] Saad Villarreal MD Primary Care Provider [phone] Allergies Active Allergy Reactions Criticality Noted Date Comments Amoxicillin Rash,Other (See comments) Medium 4 As a child Hives Medications sertraline (ZOLOFT) 25 mg tablet Take 25 mg by mouth daily Active clindamycin (CLEOCIN) 75 mg capsule Take 300 mg by mouth 4 (four) times a day Active levonorgestreL (Mirena) IUD Take 1 device by intrauterine route. 03/18/20 22 Active ondansetron ODT (ZOFRAN-ODT) 4 mg disintegrating tablet Take 1 tablet (4 mg total) by mouth every 8 (eight) hours as needed for nausea or vomiting 10 tablet 10/13/19 24 Active Active Problems No known active problems Surgical History Surgery Date Site/Laterality Comments TONSILLECTOMY 06/23/2017 - 06/22/2018 BREAST BIOPSY 08/21/2020 - 09/20/2020 Left BREAST BIOPSY 09/21/2000 - 10/20/2000 Left Family History Medical History Relation Name Comments Pancreatic cancer Paternal Grandfather Relation Name Status Comments Paternal Grandfather Social History Tobacco Use Types Packs/Day Years Used Date Smoking Tobacco: Never Smokeless Tobacco: Never AUDIT-C Answer Date Recorded Q1: How often do you have a drink containing alc ohol? Never 08/17/2020 Average Number of Drinks Not on file 021 Frequency of Binge Drinking Not on file 07/25 Personal Safety Answer Date Recorded Have you ever been in or are you currently in a harmful physical or emotional relationship or is someone making you feel afraid or unsafe? Denies 10/25/2024 Comments Unknown Sex and Gender Information Value Date Recorded Sex Assigned at Not on file Legal Sex Female 6:16 AM CLINICAL SUPERVISOR Gender Identity Female 08/17/2020 12:06 PM CLINICAL SUPERVISOR Sexual Orientation Not on file Last Filed Vital Signs Vital Sign Reading Time Taken Comments Blood Pressure 148/72 10/25/2024 4:28 AM CDT Pulse 68 10/25/2024 4:28 AM CDT Temperature 36.9 C (98.4 F) 10/25/2024 12:24 AM CDT Respiratory Rate 16 10/25/2024 4:28 AM CDT Oxygen Saturation 100% 10/25/2024 4:28 AM CDT Inhaled Oxygen Concentration - - Weight 95.3 kg (210 lb) 10/25/2024 12:31 AM CDT Height 162.6 cm (5' 4) 10/25/2024 12:24 AM CDT Body Mass Index 36.05 10/25/2024 12:24 AM CDT Plan of Treatment Health Maintenance Due Date Last Done Comments Cervical Cancer Screening 1994 Depression Screening 1994 Hepatitis C Screening 1994 Varicella Vaccines (1 of 2 - 13+ 2-dose series) 2007 Hepatitis B Screening 2012 Regular Well Visit/Exam 18-64 2012 HPV Vaccines (1 - 3-dose SCD M series) 2021 Influenza Vaccine (#1) 2025 DTaP/Tdap/Td Vaccine (2 - Td or Tdap) 12/21/2030 12/21/2020 Pneumococcal vaccine <65 Aged Out No longer eligible based on patient's age to complete this topic Insurance [facility] Care Teams Geophysical Prospecting Surveyor Relationship Specialty Start Date End Date Saad Villarreal MD [address] [facility] [address] [place] [address] PCP - General Cardiovascular Disease 10/25/24 An Albarado NP Nurse Practitioner Obstetrics and Gynecology 08/10/20
--- OUTSIDE RECORDS SUMMARY | 2025-04-25 08:15 | XMS_ITS | Patient Health Record ---
Author Organization [facility] Address [address] [facility] [address] [place] [address] Support Name Relationship Address Phone LIOR ADKINS Emergency Contact Unknown Unavai loliDELISA Barillas Guarantor Unknown [phone] Reason For Referral No Information Medications Medication SIG (Take, Route, Frequency, Duration) Notes Start Date End Date Status Polymyxin B-Trimethoprim 64875-2.1 UNIT/ML Solution Ophthalmic 01/02/2023 A ctive methylPREDNISolone 4 MG Tabl et Therapy Pack Oral 01/02/2023 Active Sertraline HCl 100 MG Tablet Oral 01/02/2023 Active Phentermine HCl 37.5 MG Capsule Oral 01/02/2023 Active metroNIDAZOLE 500 MG Tablet Oral 01/02/2023 Active buPROPion HCl 75 MG Tablet Oral 01/02/2023 Active Doxycycline Hyclate 100 MG Capsule Oral 01/02/2023 Active clonazePAM 0.5 MG Tablet Oral 01/02/2023 Active lamoTRIgine 25 MG Tablet Oral 01/02/2023 Active Social History Social History Additional Details Category Social Info Options Details Migrated Social History Migrated Social History Alcohol Intake: Occasional 01/02/2023,Tobacco Years: Never smoker 01/02/2023 Plan Of Treatment No Information Insurance Providers Payer Name Payer Address Payer Phone Subscriber Number Group Number Insured Name Patient Relationship to Insured Coverage Start Date Coverage End Date Bcbs-Dc Ppo [address] [place] [address] [id number] DELISA GORDILLO Self - patient is the insured Medical (General) History Surgical History Surgery Date(Month/Year) Tonsilectomy/adenoids Biopsy of breast ([id number]) x 2 Breast surgery (18245) 09/21/2020
--- OUTSIDE RECORDS SUMMARY | 2025-04-25 08:15 | XMS_ITS | Clinical Summary ---
Author Organization [facility] [employer] Address [address] [place] [address] Care Team Providers Care Skylights Assembler Name Role Phone Unavailable Primary Care Provider Unavailabl e Source Comments [facility],non-owned Affiliates and Associated Physician Practices is amultiple site organization consisting of ambulatory clinics and hospital sitesin [place], [place], [place] and [place]. This disclosure is being madepursuant to the Care Everywhere program and may not contain all information available regarding this patient. Last updated 18.[facility] Allergies Active Allergy Reactions Criticality Noted Date Comments Amoxicillin 10/15/2014 Medications * Be aware that medications may not be up to date on this document. Alwaysverify current medications with the patient. HYDROcodone-makenzie taminophen (NORCO) 5-325 MG tablet Take 1 tablet by mouth every 4 hours as needed for Pain 30 tablet 12/06/2017 Active ondansetron, disintegrating, (ZOFRAN ODT) 4 MG tablet Take 1 tablet by mouth every 6 hours as needed for Nausea/Vomiti ng Allow tablet to dissolve on the tongue 20 tablet 12/06/2017 Active Active Problems Problem Noted Date Diagnosed Date Post-tonsillectomy hemorrhage 12/05/2017 Left lower quadrant pain 04/21/2014 Family History Medical History Relation Name Comments Hypertension Father Cancer Paternal Grandfather Pancrea tic cancer [employer] [employer] Disease Paternal Grandmother Relation Name Status Comments Father Paternal Grandfather Paternal Grandmother Social History Tobacco Use Types Packs/Day Years Used Date Smoking Tobacco: Never Smokeless Tobacco: Never Alcohol Use Standard Drinks/Week Comments Yes 0 (1 standard drink = 0.6 oz pur e alcohol) Socially Comments No Sex and Gender Information Value Date Recorded Sex Assigned at Not on file Legal Sex Female 5:02 AM CDT Gender Identity Not on file Sexual Orientation Not on file Last Filed Vital Signs Vital Sign Reading Time Taken Comments Blood Pressure 143/89 12/06/2017 7:46 AM CDT Pulse 61 12/06/2017 7:46 AM CDT Temperature 36.4 C (97.6 F) 12/06/2017 7:46 AM CDT Respiratory Rate 16 12/06/2017 7:46 AM CDT Oxygen Saturation 100% 12/06/2017 7:46 AM CDT Inhaled Oxygen Concentration - - Weight 91.2 kg (201 lb) 12/05/2017 8:30 PM CDT Height 162.6 cm (5' 4) 12/05/2017 8:30 PM CDT Body Mass Index 34.5 12/05/2017 8:30 PM CDT Plan of Treatment Health Maintenance Due Date Last Done Comments HIV SCREENING 2009 DTAP/TDAP/TD VACCINES (1 - Tdap) 2013 HEPATITIS B VACCINE (1 of 3 - 19+ 3-dose series) 2013 PAP SMEAR 02/11/2020 02/10/2017 HPV VACCINE (1 - 3-dose SCDM series) 2021 DEPRESSION SCREENING 06/23/2024 COVID-19 VACCINE (1 - 2023-2 5 season) 2025 INFLUENZA VACCINE (#1) 2025 ZOSTER VACCINE (1 of 2) 2044 HEPATITIS C SCREENING Completed 07/19/2021 HIB VACCINE Aged Out No longer eligi ble based on patient's age to complete this topic MENINGOCOCCAL (Group B) VACC INE SHARED DECISION-MAKING Aged Out No longer eligibl e based on patient's age to complete this topic MENINGOCOCCAL GROUPS A/C/Y/W VACCINE Aged Out No longer eligible b ased on patient's age to complete this topic PNEUMOCOCCAL VACCINE Aged Out No long er eligible based on patient's age to complete this topic Insurance [facility] AETNA AETNA Advance Directives * Full Code (Latest Code Status on File) Date Activated Date Inactivated Comments 12/05/2017 8:23 PM 12/06/2017 12:20 PM
--- OUTSIDE RECORDS SUMMARY | 2025-04-25 08:15 | XMS_ITS | Encounter Summary ---
Author Organization [facility] Address [address] [place] [address] Care Team Providers Care Environmental Remediation Consultant Name Role Phone Kandi Alvarado Primary Care Provider [phone] Encounter Details Date Type Department Care Team (Late st Contact Info) Description 05/28/[address] [facility] Family & Internal Medicine [facility] [address] [place] [address] Kandi Alvarado FNP [address] [place], [place] [id number] Strep Social History Tobacco Use Types Packs/Day Years [...] Coronavirus / COVID-19? Yes 05/31/2021 8:23 AM SOFTWARE INSTALLATION ENGINEER documented as of this encounter Progress Notes * NEELA Hoffmann - 05/29/2021 5:32 PM CST Needs to get covid, flu and strep testing prior to coming in tomorrow. WARE INSTALLATION ENGINEER documented in this encounter Plan of Treatment Not on file documented as of this encounter Visit Diagnoses Not on filedocumented in this encounter Additional Health Concerns Infection Onset Date Last Indicated Resolved Time COVID-19 Rule Out 05/30/2021 05/30/2021 05/30/2021 8:09 AM SOFTWARE INSTALLATION ENGINEER COVID-19 Rule Out 05/31/2021 05/31/2021 05/31/2021 1:45 PM SOFTWARE INSTALLATION ENGINEER COVID-19 Rule Out 07/03/2021 07/03/2021 07/03/2021 1:41 PM SOFTWARE INSTALLATION ENGINEER COVID-19 Confirmed 07/03/2021 07/03/2021 12:34 AM SOFTWARE INSTALLATION ENGINEER Assessment Noted Time PHQ-9 Depression Total Score: 9 05/25/20 21 7:58 AM SOFTWARE INSTALLATION ENGINEER documented as of this encounter Care Teams Environmental Remediation Consultant Relationship Specialty Start Date End Date Knadi Alvarado FNP [address] [place] [id number] PCP - General Nurse Practitioner Family 05/25/21 documented as of this encounter
--- OUTSIDE RECORDS SUMMARY | 2025-04-25 08:44 | XMS_ITS | Encounter Summary ---
Author Organization [facility] Address [address] [place] [address] Care Team Providers Care Youth Program Director Name Role Phone Kandi Alvarado Primary Care Provider [phone] Encounter Details Date Type Department Care Team (Late st Contact Info) Description 06/20/2021 [employer] Message Enc [facility] Family & Internal Medicine [facility] [address] [place] [address] Kandi Alvarado FNP [address] [place], [place] [phone] Reschedule Social History Tobacco Use Types Packs/Day [...] Coronavirus / COVID-19? Yes 05/31/2021 8:23 AM LOCOMOTIVE MECHANIC documented as of this encounter Plan of Treatment Not on file documented as of this encounter Visit Diagnoses Not on filedocumented in this encounter Additional Health Concerns Infection Onset Date Last Indicated Resolved Time COVID-19 Rule Out 07/03/2021 07/03/202107/03/2021 1:41 PM LOCOMOTIVE MECHANIC COVID-19 Confirmed 07/03/2021 07/03/2021 12:34 AM LOCOMOTIVE MECHANIC Assessment Noted Time PHQ-9 Depression Total Score: 9 05/25/20 21 7:58 AM LOCOMOTIVE MECHANIC documented as of this encounter Care Teams Youth Program Director Relationship Specialty Start Date End Date Kandi Alvarado FNP [address] [place] [id number] PCP - General Nurse Practitioner Family 05/25/21 documented as of this encounter
--- OUTSIDE RECORDS SUMMARY | 2025-04-25 08:44 | XMS_ITS | Encounter Summary ---
Author Organization [facility] Address [address] [place] [address] Care Team Providers Care Master Hearth Technician Name Role Phone Kandi Alvarado Primary Care Provider [phone] Encounter Details Date Type Department Care Team (Late st Contact Info) Description 05/28/2021 [employer] Message Enc [facility] Family & Internal Medicine [facility] [address] [place] [address] Kandi Alvarado FNP [address] [place], [place] [phone] Strep Social History Tobacco Use Types Packs/Day [...] Coronavirus / COVID-19? Yes 05/31/2021 8:23 AM CORRESPONDENCE SCHOOL INSTRUCTOR documented as of this encounter Progress Notes * NEELA Hoffmann - 05/29/2021 5:32 PM CST Needs to get covid, flu and strep testing prior to coming in tomorrow. ESPONDENCE SCHOOL INSTRUCTOR documented in this encounter Plan of Treatment Not on file documented as of this encounter Visit Diagnoses Not on filedocumented in this encounter Additional Health Concerns Infection Onset Date Last Indicated Resolved Time COVID-19 Rule Out 05/30/2021 05/30/2021 05/30/2021 8:09 AM CORRESPONDENCE SCHOOL INSTRUCTOR COVID-19 Rule Out 05/31/2021 05/31/2021 05/31/2021 1:45 PM CORRESPONDENCE SCHOOL INSTRUCTOR COVID-19 Rule Out 07/03/2021 07/03/2021 07/03/2021 1:41 PM CORRESPONDENCE SCHOOL INSTRUCTOR COVID-19 Confirmed 07/03/2021 07/03/2021 12:34 AM CORRESPONDENCE SCHOOL INSTRUCTOR Assessment Noted Time PHQ-9 Depression Total Score: 9 05/25/20 21 7:58 AM CORRESPONDENCE SCHOOL INSTRUCTOR documented as of this encounter Care Teams Master Hearth Technician Relationship Specialty Start Date End Date Kandi Alvarado FNP [address] [place] [phone] PCP - General Nurse Practitioner Family 05/25/21 documented as of this encounter
--- OUTSIDE RECORDS SUMMARY | 2025-04-25 08:44 | XMS_ITS | Clinical Summary ---
Author Organization [facility] [employer] Address [address] [address] Care Team Providers Care State Game Warden Name Role Phone Unavailable Primary Care Provider Unavailabl e Source Comments [facility] [employer],non-owned Affiliates and Associated Physician Practices is amultiple site organization consisting of ambulatory clinics and hospital sitesin [place], [place], [place] and [place]. This disclosure is being madepursuant to the Care Everywhere program and may not contain all information available regarding this patient. Last updated 18.[facility] [employer] Allergies Active Allergy Reactions Criticality Noted Date [...] Father Cancer Paternal Grandfather Pancrea tic cancer [place] Disease Paternal Grandmother Relation Name Status Comments [...] patient's age to complete this topic Insurance [facility] AETNA AETNA Advance Directives * Full Code (Latest Code Status on File) Date Activated Date Inactivated Comments 12/05/2017 8:23 PM 12/06/2017 12:20 PM
--- OUTSIDE RECORDS SUMMARY | 2025-04-25 08:44 | XMS_ITS | Data Portability ---
Author Organization [facility] Address [address] [place] [address] [place] [address] Care Team Providers Care Client Liaison Name Role Phone DAVIDSON LOMBARDO Primary Care Provider Assessment No assessment recorded. Plan of Treatment Reminders Order Date Submit Date Provider Last Modified By Organization Details Last Modified Time Details Appointments None recorded. Lab urinalysis, dipstick 2023 024 [email or web address] 1 [place] [facility] [address], [address], [place], [address], 4 15:28:09 culture, urine 2023 024 [facility] (Lab), [address], [place], [address], 4 09:28:51 urinalysis, dipstick 2023 024 [facility], [facility] [address], [address], [place], [address], 4 16:09:31 Referral None recorded. Procedures None recorded. Surgeries None recorded. Imaging None recorded. Medication Orders sertraline 50 mg tablet 2023 024 [facility], [address], [place], [id number], 4 12:48:04 metronidazo le 500 mg tablet 2023 024 [facility], [address] [place] [address], [id number], 4 15:38:27 fluconazole 150 mg tablet 2023 024 [facility], [address] [place] [address], [id number], 4 15:38:28 sertraline 50 mg tablet 2023 024 [facility], [address] [place] [address], [id number], 4 13:41:48 Macrobid 100 mg capsule 2023 024 [facility], [address] [place] [address], [id number], 4 17:02:12 metronidazo le 500 mg tablet 2022 023 [email or web address] 1 [id number], [address], [place], [place], [id number], 4 15:18:27 Patient TargetsNo targets recorded. Patient InstructionsNo instructions recorded. Reason for Referral None Reported. Results Created Date Observation Date Name Description Value Unit Range Abnormal Flag Note LastModifiedBy Organization Detail LastModifiedTime 08/22/1908/21/2022 LIPID PANEL ,AMA (LDL- CALC) total cholesterol 122 mg/dL 0-199 Not Available [facility] (Lab) [address] [place], [address], 08/22/2022 04:21:39 08/22/1908/21/2022 LIPID PANEL ,AMA (LDL- CALC) triglyceride s 51 mg/dL 0.00-1 50.00 NCEP Refer ence Value s for Trigl yceri hemanth: Natty l: <150 mg/dL Borde rline High: 150 - 199 mg/dL High: 200 - 499 mg/dL Very High: >/= 500 mg/dL Not Available [facility] (Lab) [address], [place], [address], 08/22/2022 04:21:39 08/22/19 23 08/21/2022 LIPID PANEL ,AMA (LDL- CALC) HDL cholesterol 58 mg/dL >40 Not Available [facility] (Lab) [address], [place], [address], 08/22/2022 04:21:39 08/22/19 23 08/21/2022 LIPID PANEL ,AMA (LDL- CALC) LDL cholesterol 54 mg/dL 0-99 Cutof f value s recom armando d by the Natio nal [employer] st[employer] Educa tion Progr am: ROBEL ABLE: Waleska stero l <200 mg/dL LDL <100 mg/dL BORDE RLINE : Waleska stero l 200-2 39 mg/dL LDL 101-1 59 mg/dL HIGHE R RISK: Waleska stero l >240 mg/dL LDL >160 mg/dL , HDL <40 mg/dL Not Available [facility] (Lab) [address], [place], [address], 08/22/2022 04:21:39 08/22/19 23 08/21/2022 LIPID PANEL ,AMA (LDL- CALC) non-HDL cholesterol 64 mg/dL no refere nce range A reaso nable goal for non-H DL waleska stero l is one that is 30 mg/dL highe r than the LDL waleska stero l goal. Not Available [facility] (Lab) [address], [place], [address], 08/22/2022 04:21:39 08/22/19 23 08/21/2022 LIPID PANEL ,AMA (LDL- CALC) chol/HDL ratio 2.1 . 0.0-5. 0 Not Available [facility] (Lab) [address], [place], [address], 08/22/2022 04:21:39 08/22/19 23 08/21/2022 CMP(C OMPRE HENSI VE METAB OLIC PANEL ) sodium 142 mmol/ L 133-14 6 Not Available [facility] (Lab) [address], [place], [address], 08/22/2022 04:21:39 08/22/19 23 08/21/2022 CMP(C OMPRE HENSI VE METAB OLIC PANEL ) potassium 4.2 mmol/ L 3.5-5. 1 Not Available [facility] (Lab) [address], [place], [address], 08/22/2022 04:21:39 08/22/19 23 08/21/2022 CMP(C OMPRE HENSI VE METAB OLIC PANEL ) chloride 105 mmol/ L 98-107 Not Available [facility] (Lab) [address], [place], [address], 08/22/2022 04:21:39 08/22/19 23 08/21/2022 CMP(C OMPRE HENSI VE METAB OLIC PANEL ) carbon dioxide 26 mmol/ L 21-31 Not Available [facility] (Lab) [address], [place], [address], 08/22/2022 04:21:39 08/22/19 23 08/21/2022 CMP(C OMPRE HENSI VE METAB OLIC PANEL ) anion gap 11 mmol/ L 4-13 Not Available [facility] (Lab) [address] [place], [address], 08/22/2022 04:21:39 08/22/19 23 08/21/2022 CMP(C OMPRE HENSI VE METAB OLIC PANEL ) blood urea nitrogen 10 mg/dL 7-25 Not Available [facility] (Lab) [address] [place], [address], 08/22/2022 04:21:39 08/22/19 23 08/21/2022 CMP(C OMPRE HENSI VE METAB OLIC PANEL ) creatinine 0.64 mg/dL 0.60-1 .30 Not Available [facility] (Lab) [address] [place] [facility] [place], [address], 08/22/2022 04:21:39 08/22/19 23 08/21/2022 CMP(C OMPRE HENSI VE METAB OLIC PANEL ) egfrcr (CKD-epi 2020) >90 mL/mi n/1.7 3_m2 >=60 Not Available [facility] (Lab) [address], [place], [address], 08/22/2022 04:21:39 08/22/19 23 08/21/2022 CMP(C OMPRE HENSI VE METAB OLIC PANEL ) calcium 8.9 mg/dL 8.3-10 .5 Not Available [facility] (Lab) [address], [place], [address], 08/22/2022 04:21:39 08/22/19 23 08/21/2022 CMP(C OMPRE HENSI VE METAB OLIC PANEL ) glucose 86 mg/dL 70-100 Not Available [facility] (Lab) [address], [place], [address], 08/22/2022 04:21:39 08/22/19 23 08/21/2022 CMP(C OMPRE HENSI VE METAB OLIC PANEL ) protein, total 6.4 g/dL 6.4-8. 3 Not Available [facility] (Lab) [address] [place], [address], 08/22/2022 04:21:39 08/22/19 23 08/21/2022 CMP(C OMPRE HENSI VE METAB OLIC PANEL ) albumin 4.1 g/dL 3.5-5. 0 Not Available [facility] (Lab) [address] [place], [address], 08/22/2022 04:21:39 08/22/19 23 08/21/2022 CMP(C OMPRE HENSI VE METAB OLIC PANEL ) ALT 10 units /L 9-43 Not Available [facility] (Lab) [address], [place], [address], 08/22/2022 04:21:39 08/22/19 23 08/21/2022 CMP(C OMPRE HENSI VE METAB OLIC PANEL ) alkaline phosphatase 53 units /L 34-104 Not Available [facility] (Lab) [address], [place], [address], 08/22/2022 04:21:39 08/22/19 23 08/21/2022 CMP(C OMPRE HENSI VE METAB OLIC PANEL ) AST 15 units /L 13-39 Not Available [facility] (Lab) [address], [place], [address], 08/22/2022 04:21:39 08/22/19 23 08/21/2022 CMP(C OMPRE HENSI VE METAB OLIC PANEL ) bilirubin, total 1.6 mg/dL 0.2-1. 2 high Not Available [facility] (Lab) [address], [place], [address], 08/22/2022 04:21:39 08/22/19 23 08/21/2022 TSH, REFLE X FREE T4 TSH 0.37 uIU/m L 0.30-5 .33 Not Available [facility] (Lab) [address], [place], [address], 08/22/2022 04:21:40 08/22/19 23 08/21/2022 CBC W/DIF F WBC 10.5 10'3/ uL 3.6-10 .2 high Not Available [facility] (Lab) [address], [place], [address], 08/22/2022 04:21:40 08/22/19 23 08/21/2022 CBC W/DIF F RBC 4.46 10'6/ uL (based on docume nted legal sex) 4.10-5 .30 Not Available [facility] (Lab) [address] [place], [address], 08/22/2022 04:21:40 08/22/19 23 08/21/2022 CBC W/DIF F HGB 13.6 g/dL (based on docume nted legal sex) 11.9-1 5.8 Not Available [facility] (Lab) [address], [place], [address], 08/22/2022 04:21:40 08/22/19 23 08/21/2022 CBC W/DIF F HCT 41.5 % (based on docume nted legal sex) 37.4-4 8.3 Not Available [facility] (Lab) [address], [place], [address], 08/22/2022 04:21:40 08/22/19 23 08/21/2022 CBC W/DIF F MCV 93.0 fL 82.0-9 9.0 Not Available [facility] (Lab) [address], [place], [address], 08/22/2022 04:21:40 08/22/19 23 08/21/2022 CBC W/DIF F MCH 30.5 pg 27.0-3 3.0 Not Available [facility] (Lab) [address], [place], [address], 08/22/2022 04:21:40 08/22/19 23 08/21/2022 CBC W/DIF F MCHC 32.8 g/dL 32.0-3 6.0 Not Available [facility] (Lab) [address], [place], [address], 08/22/2022 04:21:40 08/22/19 23 08/21/2022 CBC W/DIF F RDW 14.5 % 11.0-1 5.0 Not Available [facility] (Lab) [address], [place], [address], 08/22/2022 04:21:40 08/22/19 23 08/21/2022 CBC W/DIF F plt 218 10'3/ uL 150-45 0 Not Available [facility] (Lab) [address], [place], [address], 08/22/2022 04:21:40 08/22/19 23 08/21/2022 CBC W/DIF F MPV 11.0 fL 9.8-12 .7 Not Available [facility] (Lab) [address], [place], [address], 08/22/2022 04:21:40 08/22/19 23 08/21/2022 CBC W/DIF F NRBC's 0.0 % 0 Not Available [facility] (Lab) [address], [place], [address], 08/22/2022 04:21:40 08/22/19 23 08/21/2022 CBC W/DIF F absolute NRBCs 0.0 10'3/ uL 0 Not Available [facility] (Lab) [address], [place], [address], 08/22/2022 04:21:40 08/22/19 23 08/21/2022 CBC W/DIF F neutrophils 73.9 % 37.0-7 2.0 high Not Available [facility] (Lab) [address], [place], [address], 08/22/2022 04:21:40 08/22/19 23 08/21/2022 CBC W/DIF F lymphocytes 17.6 % 16.0-4 8.0 Not Available [facility] (Lab) [address], [place], [address], 08/22/2022 04:21:40 08/22/19 23 08/21/2022 CBC W/DIF F monocytes 6.9 % 4.0-14 .0 Not Available [facility] (Lab) [address], [place], [address], 08/22/2022 04:21:40 08/22/19 23 08/21/2022 CBC W/DIF F eosinophils 0.8 % 0.0-9. 0 Not Available [facility] (Lab) [address], [place], [address], 08/22/2022 04:21:40 08/22/19 23 08/21/2022 CBC W/DIF F basophils 0.5 % 0.0-2. 0 Not Available [facility] (Lab) [address], [place], [address], 08/22/2022 04:21:40 08/22/19 23 08/21/2022 CBC W/DIF F immature granulocytes 0.3 % no define d refere nce range Not Available [facility] (Lab) [address], [place], [address], 08/22/2022 04:21:40 08/22/19 23 08/21/2022 CBC W/DIF F absolute neutrophils 7.7 10'3/ uL 1.1-6. 0 high Not Available [facility] (Lab) [address], [place], [address], 08/22/2022 04:21:40 08/22/19 23 08/21/2022 CBC W/DIF F absolute lymphocytes 1.8 10'3/ uL 0.7-3. 4 Not Available [facility] (Lab) [address], [place], [address], 08/22/2022 04:21:40 08/22/19 23 08/21/2022 CBC W/DIF F absolute monocytes 0.7 10'3/ uL 0.3-1. 0 Not Available [facility] (Lab) [address] [place], [address], 08/22/2022 04:21:40 08/22/19 23 08/21/2022 CBC W/DIF F absolute eosinophils 0.1 10'3/ uL 0.0-0. 6 Not Available [facility] (Lab) [address] [place], [address], 08/22/2022 04:21:40 08/22/19 23 08/21/2022 CBC W/DIF F absolute basophils 0.1 10'3/ uL 0.0-0. 1 Not Available [facility] (Lab) [address], [place], [address], 08/22/2022 04:21:40 08/22/19 23 08/21/2022 CBC W/DIF F absolute immature granulocytes 0.0 10'3/ uL 0.00-0 .10 023 2:41 AM: P indic ates parti al resul ts on a panel have been relea sed. Addit ional resul ts will follo w. 023 2:41 AM: This resul t has been final verif ied. No addit ional or harp ed resul ts are expec kimberly. Not Available [facility] (Lab) [address], [place], [address], 08/22/2022 04:21:40 08/22/19 23 08/21/2022 VITAM IN D, 25-OH (TOTA L D2/D3 ) vitamin D, 25-hydroxy, total 33.5 NG/mL 30.0-1 00.0 Sugge stive of Defic iency : <20 ng/mL Sugge stive of Insuf ficie ncy: 20-29 ng/mL Sugge stive of Suffi cienc y: 30-10 0 ng/mL Sugge stive of Toxic ity: >150 ng/mL Not Available [facility] (Lab) [address], [place], [address], 08/22/2022 04:21:41 08/22/19 23 08/21/2022 HEMOG LOBIN A1C hemoglobin A1C 5.1 % 0-5.6 The Ameri can [employer] i[employer] n recom mends that a prima ry goal of thera py bertaul d be a HBA1C of < 7% and that physi cians shoul d reeva luate the treat ment regim en in patie nts with HBA1C value s consi stent ly > 8%. <5.7% Natty l 5.7 - 6.4% Incre ased risk for diabe shaye >=6.5 % Diagn ostic of diabe shaye <7.0% Goal of thera py >8.0% Actio liu wilcox Not Available [facility] (Lab) [address], [place], [address], 08/22/2022 04:21:41 08/26/19 24 08/26/2023 CULTU RE: URINE result report SEE RESULT S BELOW abnormal Test: Cultu re: Urine Speci men Sourc e: Urine Voide d Speci men Type: Urine Speci men Date: 024 3:16 PM Resul t Date: 024 3:58 PM Resul t Statu s: Final resul t Abnor mal: Yes Resul jackieg Lab: [facility] [address] [address] Tel: CULTU RE ----- ----- ----- --- >100, 000 CFU/m l Staph yloco ccus aureu s (Abno al) SUSCE PTIBI LITY ----- ----- ----- --- Staph yloco ccus aureu s METHO D HEYDI ----- ----- ----- ----- ----- ---- ----- ----- ----- ----- ---- GENTA MICIN <=4 ug/mL Susce ptibl e LEVOF LOXAC IN <=1 ug/mL Susce ptibl e NITRO FURAN TOIN <=32 ug/mL Susce ptibl e OXACI LLIN 1 ug/mL Susce ptibl e TETRA CYCLI NE <=4 ug/mL Susce ptibl e TRIME THOPR IM/SLAUGHTER LFAME THOXA ZOLE <=0.5 ug/mL Susce ptibl e VANCO MYCIN 2 ug/mL Susce ptibl e Not Available [facility] (Lab) [address], [place], [address], 08/28/2023 17:02:22 08/26/19 24 08/26/2023 urina lysis , dipst ick Leukocytes trace Not Available [facility] [address], [place], [address], 08/26/2023 15:56:49 08/26/19 24 08/26/2023 urina lysis , dipst ick Blood trace Not Available [facility] [address], [place], [address], 08/26/2023 15:56:49 08/26/19 24 08/26/2023 urina lysis , dipst ick Appearance clear Not Available [facility] [address], [place], [address], 08/26/2023 15:56:49 08/26/19 24 08/26/2023 urina lysis , dipst ick Color yellow Not Available [facility] [address], [place], [address], 08/26/2023 15:56:49 01/29/20 24 01/29/2024 VAGIN ITIS/ VAGIN OSIS, DNA PROBE renita sp. detection, direct probe Negati ve negati ve Not Available [facility] (Lab) [address] [place], [address], 01/30/2024 09:17:40 01/29/20 24 01/29/2024 VAGIN ITIS/ VAGIN OSIS, DNA PROBE gardnerella vag. detection, direct probe Positi ve negati ve abnormal Not Available [facility] (Lab) [address] [place], [address], 01/30/2024 09:17:40 01/29/20 24 01/29/2024 VAGIN ITIS/ VAGIN OSIS, DNA PROBE trichomonas vag. detection, direct probe Negati ve negati ve Not Available [facility] (Lab) [address] , [place], [address], 01/30/2024 09:17:40 02/16/20 24 02/16/2024 CULTU RE: URINE result report SEE RESULT S BELOW abnormal Test: Cultu re: Urine Speci men Sourc e: Urine Voide d Speci men Type: Urine Speci men Date: 2023 1454 Resul t Date: 2023 0825 Resul t Statu s: Final resul t Abnor mal: Yes Resul gosia Lab: [facility] [address] [facility] [address] Tel: [phone] CULTU RE ----- ----- ----- --- 25,00 0-50, 000 CFU/m l Esche nash a coli (Abno rmal) SUSCE PTIBI LITY ----- ----- ----- --- Esche nash a coli METHO D HEYDI ----- ----- ----- ----- ----- ---- ----- ----- ----- ----- ----- AMPIC ILLIN >16 ug/mL Resis tant AMPIC ILLIN /SULB ACTAM 8 ug/mL Susce ptibl e AZTRE ONAM <=4 ug/mL Susce ptibl e CEFAZ ANI <=2 ug/mL Susce ptibl e CEFEP ABBY <= 2 ug/mL Susce ptibl e CEFTA ZIDIM E <=1 ug/mL Susce ptibl e CEFTR IAXON E <=1 ug/mL Susce ptibl e CIPRO FLOXA DANNY <=0.2 5 ug/mL Susce ptibl e GENTA MICIN >8 ug/mL Resis tant LEVOF LOXAC IN <=0.5 ug/mL Susce ptibl e MEROP ENEM <=1 ug/mL Susce ptibl e NITRO FURAN TOIN <=32 ug/mL Susce ptibl e PIPER ACILL IN/TA ZOBAC GASPAR <=8 ug/mL Susce ptibl e TOBRA MYCIN 8 ug/mL Resis tant TRIME THOPR IM/SLAUGHTER LFAME THOXA ZOLE >2 ug/mL Resis tant Not Available [facility] (Lab) [address], [place], [address], 02/19/2024 09:28:50 02/16/20 24 02/16/2024 urina lysis , dipst ick Leukocytes +3 [facility] Available [facility] [address], [place], [address], 02/16/2024 15:21:17 02/16/20 24 02/16/2024 urina lysis , dipst ick Nitrite normal Not Available [facility] [address], [place], [address], 02/16/2024 15:21:17 02/16/20 24 02/16/2024 urina lysis , dipst ick Urobilinogen normal Not Available [facility] [address], [place], [address], 02/16/2024 15:21:17 02/16/20 24 02/16/2024 urina lysis , dipst ick Protein trace Not Available [facility] [address], [place], [address], 02/16/2024 15:21:17 02/16/20 24 02/16/2024 urina lysis , dipst ick pH 8 Not Available [facility] [address], [place], [address], 02/16/2024 15:21:17 02/16/20 24 02/16/2024 urina lysis , dipst ick Blood +++ Not Available [facility] [address], [place], [address], 02/16/2024 15:21:17 02/16/20 24 02/16/2024 urina lysis , dipst ick Specific [place] 1.000 Not Available [facility] [address], [place], [address], 02/16/2024 15:21:17 02/16/20 24 02/16/2024 urina lysis , dipst ick Ketone normal Not Available [facility] [address], [place], [address], 02/16/2024 15:21:17 02/16/20 24 02/16/2024 urina lysis , dipst ick Bilirubin normal Not Available [facility] [address], [place], [address], 02/16/2024 15:21:17 02/16/20 24 02/16/2024 urina lysis , dipst ick Glucose normal Not Available [facility] [address], [place], [address], 02/16/2024 15:21:17 02/16/20 24 02/16/2024 urina lysis , dipst ick Appearance normal Not Available [facility] [address], [place], [address], 02/16/2024 15:21:17 02/16/20 24 02/16/2024 urina lysis , dipst ick Color normal Not Available [facility] [address], [place], [address], 02/16/2024 15:21:17 Result Notes None recorded. Problems Name Problem SNOMED Code Status Onset Date Resolution Date Notes Provider Name and Address Organization Details Recorded Time Abscess of breast 93586996 Completed L breast abscess - 4/9 pt getting u/s aspirati on with cefdinir 300mg BID 7 days - went to [facility] 08/17 to try to drain and it was unsucces sful. Pradipe d rpt schd for 08/25/19 Surgery at [place] 08/25 Davidson Pisano null, [place] - [facility] 15:01:01 Anxiety disorder 085074357 Completed Anjelica falcon null, [facility] 15:01:01 Anxiety 73717668 Active 2020 Lis Murillo null, [facility] 12:22:58 Depressi ve disorder 45488039 Active 2020 Lis Murillo null, [facility] 12:23:03 Pregnanc y 34095126 Completed 202012/29/2020 Lis Murillo null, [facility] 14:41:23 Problem Notes None recorded. Procedures Surgical History Date Name Laterality Status Provider Name and Address Organization Details Recorded Time 09/21/19 23 IUD Removal completed PARAS Charles- [address], [place], [address], [facility] 09/20/2022 12:22:46 06/26/19 23 Date of Last Pap Smear completed Susan Plummer [facility] 08/26/2023 16:04:20 03/18/20 22 IUD Insertion completed PARAS Arzate [address], [place], [address], [facility] 03/18/2022 17:17:15 11/01/19 22 IUD Removal completed An Albarado CNM [address], [place], [address], [facility] 10/31/2021 19:19:58 02/03/20 21 IUD Insertion completed An Albarado CNM [address], [place], [address], [facility] 02/02/2021 15:47:09 10/13/19 21 [facility] 12:02:40 08/26/19 21 [facility]/30[facility]2020 10:51:51 02/20/20 19 Colposcopy completed [facility] 12/19/2020 17:51:25 02/20/20 19 Colposcopy completed [facility] 12/19/2020 17:54:24 11/14/19 19 Colposcopy completed [facility] 12/19/2020 17:54:58 11/27/19 18 Tonsillectomy completed [facility] 08/01/2020 12:26:43 Imaging Results None recorded. Procedure Notes None recorded. Medical Equipment None Reported. Allergies Allergen ID Allergen Name Allergen Category Reaction Reaction Severity Criticality Documentation Date Start Date Code Code System Note Provider Name and Address Organization Details Recorded Time 02112 amoxicill in medicatio n Not available Not available Not available 08/01/2020 723 RxNorm Lismelanie Murillo [facility] 12:22:25 Medications Name Sig Start Date Stop Date Status Note LastModified by Organization Details LastModified Time Mirena 21 mcg/24 hr (up to 8 years) 52 mg intrauterin e device Take 1 device by intrauter ine route. 08/25 completed Not Available Not Available Not Available buspirone 5 mg tablet TAKE 1 TABLET BY MOUTH THREE TIMES DAILY 03/14 completed Not Available Not Available Not Available doxycycline hyclate 100 mg capsule 08/21 completed Not Available Not Available Not Available labetalol 200 mg tablet TAKE 1 TABLET BY MOUTH TWICE DAILY 01/19 completed Not Available Not Available Not Available clindamycin HCl 300 mg capsule Take 1 capsule 3 times a day by oral route for 7 days. 08/30 completed Not Available Not Available Not Available alprazolam 1 mg tablet TAKE 1 TABLET BY MOUTH ONCE DAILY NEEDED FOR 30 DAYS . NO DRIVING ALCOHOL OR SEDATING MEDICATIO NS WITH THIS MEDICATIO N 08/30 completed Not Available Not Available Not Available fluconazole 150 mg tablet TAKE ONE TABLET BY MOUTH FOR 3 DAYS active Not Available Not Available No t Available prednisone 20 mg tablet TAKE 2 TABLETS BY MOUTH ONCE DAILY FOR 5 DAYS active Not Available Not Available No t Available clonazepam 0.5 mg tablet TAKE 1/2 TABLET BY MOUTH EVERY DAY 06/26 completed Not Available Not Available Not Available sertraline 100 mg tablet TAKE 1 TABLET BY MOUTH EVERY DAY active Not Available Not Available No t Available terconazole 0.8 % vaginal cream INSERT 1 APPLICATO RFUL VAGINALLY AT BEDTIME FOR 3 DAYS 08/30 completed Not Available Not Available Not Available metronidazo le 500 mg tablet TAKE ONE TABLET BY MOUTH TWICE DAILY WITH FOOD 02/15 completed Not Available Not Available Not Available phentermine 37.5 mg tablet TAKE 1 TABLET BY MOUTH EVERY DAY FOR 30 DAYS active Not Available Not Available No t Available ciprofloxac in 500 mg tablet TAKE ONE TABLET BY MOUTH EVERY TWELVE HOURS FOR 7 DAYS 01/21 completed Not Available Not Available Not Available sulfamethox azole 800 mg-trimetho prim 160 mg tablet TAKE 1 TABLET BY MOUTH TWICE DAILY FOR 7 DAYS 08/30 completed Not Available Not Available Not Available triamcinolo ne acetonide 0.1 % topical cream APPLY TO THE AFECTED AREA TWICE A DAY FOR 7 DAYS active Not Available Not Available No t Available lamotrigine 25 mg tablet TAKE 1 TABLET BY MOUTH EVERY DAY AT BEDTIME FOR 14 DAYS THEN 2 TABLETS EVERY DAY AT BEDTIME 08/25 completed Not Available Not Available Not Available cephalexin 500 mg capsule 01/19 completed Not Available Not Available Not Available esomeprazol e magnesium 40 mg capsule,del ayed release TAKE 1 CAPSULE BY MOUTH ONCE DAILY NEEDED 08/30 completed Not Available Not Available Not Available polymyxin B sulfate 10,000 unit-trimet hoprim 1 mg/mL eye drops INSTILL 1 DROP IN BOTH EYES EVERY 4 HOURS FOR 10 DAYS 08/21 completed Not Available Not Available Not Available bupropion HCl 75 mg tablet 06/26 completed Not Available Not Available Not Available sertraline 25 mg tablet Take 1 tablet every day by oral route. 03/07 completed Not Available Not Available Not Available hydrochloro thiazide 25 mg tablet TAKE 1 TABLET BY MOUTH EVERY DAY active Not Available Not Available No t Available mupirocin 2 % topical ointment 12/27 completed Not Available Not Available Not Available metoprolol succinate ER 25 mg tablet,exte nded release 24 hr TAKE ONE TABLET BY MOUTH EVERY DAY active Not Available Not Available No t Available methylpredn isolone 4 mg tablets in a dose pack FOLLOW PACKAGE DIRECTION S 08/21 completed Not Available Not Available Not Available ondansetron 4 mg disintegrat ing tablet DISSOLVE 1 TABLET BY MOUTH EVERY 8 HOURS NEEDED FOR NAUSEA OR VOMITING 01/28 completed Not Available Not Available Not Available sertraline 50 mg tablet TAKE ONE TABLET BY MOUTH EVERY DAY active Not Available Not Available No t Available phentermine 37.5 mg capsule TAKE 1 CAPSULE BY MOUTH ONCE DAILY NO ALCOHOL, DRIVING, OR WITH SEDATING MEDICATIO NS 08/25 completed Not Available Not Available Not Available metoclopram teagan 10 mg tablet TAKE 1 TABLET BY MOUTH EVERY 6 HOURS NEEDED 08/30 completed Not Available Not Available Not Available bupropion HCl XL 150 mg 24 hr tablet, extended release TAKE 1 TABLET BY MOUTH EVERY DAY active Not Available Not Available No t Available nitrofurant oin monohydrate /macrocryst als 100 mg capsule TAKE ONE CAPSULE BY MOUTH EVERY TWELVE HOURS FOR 7 DAYS 03/23 completed Not Available Not Available Not Available sertraline 06/26 completed Not Available Not Available Not Available progesteron e 03/23 completed Not Available Not Available Not Available ID NOW COVID-19 Test Kit 06/04 completed Not Available Not Available Not Available Vitals Date Recorded Body height Body mass index (BMI) Body weight Systolic And Diastolic Provider Name and Address Organization Details Last Updated DateTime 08/26/2023 161.93 cm 40.8 kg/m2 176969.8 g 126/103 mm[Hg] Susan Plummer [facility] 08/26/2023 16:03:15 Date Recorded Body height Systolic And Diastolic Provider Name and Address Organization Details Last Updated DateTime 09/20/2022 161.93 cm 124/80 mm[Hg] Airam Bonilla [facility] 09/20/2022 12:12:09 Date Recorded Body height Body mass index (BMI) Body weight Systolic And Diastolic Provider Name and Address Organization Details Last Updated DateTime 01/29/2024 161.93 cm 37.5 kg/m2 03173.54 g 131/79 mm[Hg] Susan Kavitha [facility] 01/29/2024 11:20:24 Date Recorded Body height Body mass index (BMI) Body weight Systolic And Diastolic Provider Name and Address Organization Details Last Updated DateTime 02/16/2024 161.93 cm 36.8 kg/m2 05154.17 g 114/89 mm[Hg] Lis Murillo [facility] 02/16/2024 15:18:12 Date Recorded Body height Body mass index (BMI) Body weight Systolic And Diastolic Provider Name and Address Organization Details Last Updated DateTime 03/23/2024 161.93 cm 36.7 kg/m2 11180.58 g 134/83 mm[Hg] Rosy Asher [facility] 03/23/2024 10:01:00 Social History Question Answer Notes LastModified by Organizat ion Details LastModified Time Tobacco Smoking Status Never Smoker Carrie Blankenship ros, [facility] 09/20/2022 12:04:00 Do You Have An Advance Directive? No [email or web address] Information n ot available 08/30/2020 If You Are , What Was Your Level Of Alcohol Consumption Prior To ? Occasional [email or web address] Information not available 09/20/2022 How Many Years Have You Consumed Alcohol? 5 [email or web address] Information not available 08/30/2020 Are You Blind Or Do You Have Difficulty Seeing? No [email or web address] Information n ot available 08/30/2020 What Is Your Level Of Caffeine Consumption? Occasional [email or web address] Information not available 10/24/2020 How Much Tobacco Do You Chew? None [email or web address] Information not available 08/30/2020 In The 14 Days Before Symptom Onset, Have You Had Close Contact With A Laboratory-confirm ed COVID-19 While That Case Was Ill? No [email or web address] Information n ot available 08/30/2020 In The 14 Days Before Symptom Onset, Have You Had Close Contact With A Person Who Is Under Investigation For COVID-19 While That Person Was Ill? No [email or web address] Information not available 08/30/2020 Have You Been To An Area Known To Be High Risk For COVID-19? No [email or web address] Information not available 08/30/2020 Are You Deaf Or Do You Have Serious Difficulty Hearing? No [email or web address] Information not available 08/30/2020 What Type Of Diet Are You Following? REGULAR [email or web address] Information n ot available 08/30/2020 Which Illicit Or Recreational Drugs Have You Used? Ag [email or web address] Information not available 09/20/2022 What Is The Highest Grade Or Level Of School You Have Completed Or The Highest Degree You Have Received? [id number] [email or web address] Information not available 08/30/2020 How Many Days Of Moderate To Strenuous Exercise, Like A Brisk Walk, Did You Do In The Last 7 Days? 4 [email or web address] Information not available 09/20/2022 Are There Any Guns Present In Your Home? No Information not available 03/14/2022 Have You Ever Been Counseled For Unhealthy Alcohol Use? No Information not available 09/20/2022 Do You Use Protection During Sex? No [email or web address] Information not available 08/30/2020 Do You Use Your Seat Belt Or Car Seat Routinely? Yes [email or web address] Information not available 08/30/2020 Do You Have Smoke And Carbon Monoxide Detectors In Your Home? Yes Information not available 08/30/2020 How Much Tobacco Do You Smoke? No [email or web address] Information not available 08/30/2020 Do You Use Sunscreen Routinely? Yes [email or web address] Information not available 08/30/2020 Has Tobacco Cessation Counseling Been Provided? No [email or web address] Information not available 09/20/2022 Have You Used IV Drugs? No [email or web address] Information not available 08/01/2020 Do You Have Difficulty Walking Or Climbing Stairs? No Information not available 09/20/2022 Sex: Unknown Functional Status Question Answer Note LastModified by Organizat ion Details LastModified Time Do you use any illicit or recreational drugs? Yes [email or web address] Information not available 08/01/2020 Do you or have you ever used any other forms of tobacco or nicotine? No [email or web address] Information not available 09/20/2022 What is your level of alcohol consumption? Occasional [email or web address] Information not available 08/01/2020 Are you able to walk independently without assistance or assistive devices? YESWOREST [email or web address] Information not available 08/30/2020 Are you able to care for yourself independently? 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 No [email or web address] Information not available 09/20/2022 What is your exercise level? Moderate [email or web address] Information not available 08/30/2020 Mental Status Question Answer Note LastModified by Organization D etails LastModified Time Do you feel stressed (tense, restless, nervous, or anxious, or unable to sleep at night)? [id number] Information not available 03/14/2022 Family History Relationship Description Onset Age of this Age Resolved Age Notes LastModified by Organization Details LastModified Time Maternal Grandmother Hypertensive disorder [email or web address] Not available 08/23 12:12:13 Maternal Grandmother Hypertensive disorder [email or web address] Not available 2023 14:47:17 Father Hypertensive disorder [email or web address] Not available 08/23 12:12:13 Father Hypertensive disorder [email or web address] Not available 2023 14:47:17 Mother Hypertensive disorder [email or web address] Not available 08/23 12:12:13 Mother Hypertensive disorder [email or web address] Not available 2023 14:47:17 Paternal Grandmother Malignant neoplasm of pancreas [email or web address] Not available 2023 09:56:10 Unspecified Relation Malignant neoplasm of pancreas nichellen al great grandm a [email or web address] Not available 03/23/2024 09:56:10 Medical History Condition Response Allergies (Food, seasonal, environmental ) N Other N Breast Cancer N Drug/Latex Allergies/Reactions N Blood Transfusion N Dermatologic Disorders N Lung Disease N Defects or Inherited Disease N Breast Problem Y Gestational Diabetes N Hematologic disorders N Anesthesia Complications N History of STI Y Deep Vein Thrombosis N Polycystic ovary syndrome N Anxiety Disorder Y Autoimmune disease N Arthritis N Infertility N Polyps N Acid Reflux (GERD) N History of abnormal pap Y Cancer N Stroke N Varicosities N Neurologic/Epilepsy N Endometriosis N High Cholesterol N Headaches N Fibromyalgia N Kidney Disease N Heart Problems N Kidney or Bladder Problems N Thyroid Problems N GI Problems N Eating Disorder N Anemia N Art (IVF or FET) N Psychiatric Illness N Ovarian Cancer N Diabetes N Pulmonary (TB, Asthma) N Hepatitis/Liver Disease N Eczema N Urinary Tract Infection N Abuse/Domestic Violence N Asthma N Trauma/Violence N Depression/ depression Y Heart Disease N Pre-Eclampsia N Hypertension Y Osteoporosis N Thrombophilias N Gynecological History Statement/Question Response Date of Last Mammogram Date of LMP 03/04/2024 N Was last menstrual period normal Y STIs/STDs Y Date of Last Colonoscopy Abnormal Pap Yes On BCP's at Conception? N HPV Vaccine Y Colposcopy 02/19/2019 Duration of Flow (days) 4 Current Control Method None Age at First Child 25 Are cycles usually normal N Frequency of Cycle (Q days) 27 Sexually Active? Y Menses Monthly N Date of DEXA bone scan Age of first menstrual cycle 11 Date of Last Pap Smear 06/26/2022 Sexual Problems? N LMP Approximate N 12/31/2019 Obstetrics History GPAL:G 1 P 1 0 0 1 Type Value Full Term 1 Living 1 Total 1 Past Encounters Encounter ID Performer Location Encounter Start Date Encounter Closed Date Diagnosis/Indication Diagnosis SNOMED-CT Code Diagnosis ICD10 Code Diagnosis IMO Codes Diagnosis Note [id number] Brando Renner MD [facility] [address] [address] 08/01/2020 11:28:06 08/01/2020 12:46:25 screening for malformation 694149699 Z36.3 [id number] An Albarado CNM [facility] [address] [address] 08/01/2020 11:28:21 08/02/2020 22:53:45 Routine care 324479933 Z34.92 [id number] An Albarado CNM [facility] [address],[place] [address] 08/30/2020 10:33:36 08/30/2020 11:17:50 Routine care 249685912 Z34.92 [id number] An Albarado [facility] [address],[place] [address] 09/27/2020 16:35:50 10/01/2020 22:36:18 Routine care 521369546 Z34.92 [id number] Brando Renner MD [facility] [address],[place] [address] 09/27/2020 16:34:51 09/28/2020 15:03:36 Drug dependence during - baby not yet delivered 548778119 O99.322 Z3A.26 [id number] An Albarado [facility] [address],[place] [address] 10/11/2020 10:31:26 10/11/2020 15:02:03 Routine care 038995523 Z34.92 [id number] An Albarado [facility] [address],[place] [address] 10/24/2020 11:23:33 10/24/2020 14:31:26 Routine care 670887728 Z34.92 [id number] Brando Renner MD [facility] [address],[place] [address] 10/24/2020 12:28:35 10/24/2020 13:51:19 tachycardia 187789609 P29.11 [id number] An Albarado [facility] [address],[place] [address] 11/07/2020 10:03:49 11/07/2020 11:35:52 Routine care 734469087 Z34.92 [id number] Brando Renner MD [facility] [address],[place] [address] 11/07/2020 10:02:32 11/07/2020 11:11:29 Medical examination for suspected condition 192412143 Z03.74 [id number] An Albarado [facility] [address],[place] [address] 11/22/2020 09:58:01 11/22/2020 10:36:36 Routine care 391654948 Z34.92 [id number] An Albarado [facility] [address],[place] [address] 12/06/2020 12:01:42 12/06/2020 13:24:42 Routine care 634870768 Z34.92 [id number] Brando Renner MD [facility] [address],[place] [address] 12/06/2020 11:55:45 12/06/2020 12:26:19 Poor growth affecting management 461033152 O36.5930 Z3A.36 [id number] An Albarado [facility] [address],[place] [address] 12/13/2020 09:58:34 12/13/2020 10:58:03 Routine care 134735303 Z34.92 [id number] Brando Renner MD [facility] [address],[place] [address] 12/12/2020 12:22:39 12/12/2020 13:12:14 Medical examination for suspected condition 613766967 Z03.71 Z3A.37 [id number] Elizabeth Rodriguez [facility] [address],[place] [address] 12/20/2020 09:55:09 12/20/2020 12:55:48 Routine care 032747715 Z34.93 [id number] Brando Renner MD [facility] [address],[place] [address] 12/20/2020 09:55:46 12/20/2020 11:02:16 Oligohydramnios 06493091 O41.03X0 Z3A.38 [id number] Elizabeth Rodriguez [facility] [address],[place] [address] 12/27/2020 15:58:46 12/28/2020 10:52:11 -induced hypertension 8956781344 9100 O13.9 No symptoms. BP significan tly elevated. Pt taken to L&D for evaluation . [id number] An Albarado [facility] [address],[place] [address] 12/29/2020 14:29:17 12/29/2020 15:06:46 -induced hypertension 75471792 O13.9 [id number] An Albarado [facility] [address],[place] [address] 01/19/2021 16:22:14 01/23/2021 16:21:10 care 752571633 Z39.2 [id number] An Albarado [facility] [address],[place] [address] 02/02/2021 13:46:15 02/02/2021 15:50:25 Anxiety 21377644 F41.9 increase to 50mg zoloft daily and keep counseling session Insertion of intrauterine contraceptive device 52926156 Z30.430 [id number] nA Albarado [facility] [address],[place] [address] 10/31/2021 18:24:29 10/31/2021 19:20:34 Removal of intrauterine device 72737421 Z30.432 [id number] nA Albarado [facility] [address],[place] [address] 03/07/2021 09:17:14 03/07/2021 09:53:12 IUD check 793493221 Z30.431 Anxiety 97523587 F41.9 continue counseling [id number] Elizabeth Rodriguez [facility] [address],[place] [address] 06/04/2021 17:36:28 06/07/2021 19:04:12 Gynecologic examination 84177891 Z01.419 Take Calcium with Vitamin D 1200mg daily if not receiving in daily diet. It is strongly advised to have an annual flu shot and up can obtain at most pharmacies . If you have not had a TDap shot in the last 10 years you should obtain one as well. Discussed with patient & provided with informatio n regarding Gardisil vaccine to prevent the 4 strains for HPV that cause cervical cancer if under age 26. Encourage safe sexual practices, to use condoms and limit partners if not already in a monogamous relationsh ip. Do monthly self breast exams. Have mammogram yearly or every other year depending on family history. BRCA testing is now available for patients with strong genetic history of female cancer. If interested contact the office. Engage in daily exercise of low impact aerobic exercise 45-60 minutes 4-5 times weekly. Avoid tobacco and illicit drugs as well as using moderation with alcohol intake less than 1-2 8 oz beverages daily. This lifestyle behavior pattern will lead to less health conditions and longer life span. If BMI greater than 25 weight watchers or dietary consult advised. Patient received above instructio ns, and questions have been answered. If you have any questions please call or respond to this email. Patient was made aware of the patient portal and may obtain a paper copy of today's plan if desired. [id number] PARAS Arzate [facility] [address] [address] 03/14/2022 09:57:25 03/14/2022 11:15:32 Contraception care management 080482310 Z30.9 Pain in pelvis 26100272 R10.2 We agreed to pelvic u/s and updated STI testing for further evaluation of pelvic painUrine sent for cultureWe discussed various causes of pelvic pain and management options pending pelvic u/s / culture resultsAll BC options discussed in-depth, she would like to try Mirena IUD againHer period is expected this weekendShe will RTC for pelvic u/s tomorrow, and plan for IUD insertion next week while on mensesR/B of Mirena IUD discussed and accepted by patientED precaution s discussed Time spent in visit is a total of 35 mins with at least 50% of visit consisting of counseling and review of plan of care. Venereal d isease screening 037151363 Z11.3 [id number] Brando Renner MD [facility] [address] [address] 03/15/2022 12:05:41 03/15/2022 12:56:24 Pain in pelvis 98977863 R10.2 [id number] PARAS Arzate [facility] [address] [address] 03/18/2022 16:34:24 03/18/2022 17:26:49 Insertion of intrauterine contraceptive device 78005999 Z30.430 She has been counseled on all of the r/b/a of placement of an intrauteri ne device that include but are not limited to uterine perforatio n, injury to cervix, vagina, bladder, and bowel.Risk s of bleeding due to injury or increased irregular bleeding due to progestin effect of the device. Risks of infection would be increased within the first 21 days of placement with concommita nt cervicitis . She understand s that the device will need to be removed in this instance due to increased risk of Pelvic inflammato ry disease. Patient is aware she is at higher risk for STD and if contracted she could lose her fertility. Pt is aware that if occurs that she should contact office immediatel y to rule out ectopic which could be life threatenin g. IUD will also need to be removed and this could cause miscarriag e. Patient also informed that in the event her strings are absent or embedded at the time of removal she may need to have the IUD surgically removed. She was informed of the above and properly consented. IUD placed w/o complicati on. Patient should return to office after next period to check for string placement. Patient to expect irregular bleeding but should be seen in the ED if bleeding increases to soaking a pad an hour for at least 2 hours. She verbalized understand ing.RTC for IUD check in 1 month Contracept ion care management 004328429 Z30.9 Elevated blood-pressure reading without diagnosis of hypertension 318944217 R03.0 BP sfiqw178/9 0 - no symptoms. Recently started on wellbutrin . She will notify PCP and psychiatri st and f/u with them for BP check. ED precaution s discussed. [id number] PARAS Arzate [facility] [address],[place] [address] 04/18/2022 09:26:34 04/18/2022 10:32:32 IUD check 150422056 Z30.431 (+) IUD strings seen on exam Patient is here today for a medicaton check of control. She voices goals of therapy have been met with use of this therapy. She denies neg side effects. She is eating, drinking, sleeping well; moods are stable & periods are well regulated. Wishes to continue this method of BC. Appropriat e to continue this medication .Happy with IUD! No negative SERTC for WWE or sooner if needed Time spent in visit is a total of 15 mins with at least 50% of visit consisting of counseling and review of plan of care. [id number] Mirna Aquino REYNALDO [facility] [address],[place] [address] 06/26/2022 09:25:38 06/26/2022 10:42:13 Gynecologic examination 94376479 Z01.419 Take Calcium with Vitamin D 1200mg daily if not receiving in daily diet. It is strongly advised to have an annual flu shot and up can obtain at most pharmacies . If you have not had a TDap shot in the last 10 years you should obtain one as well. Discussed with patient & provided with informatio n regarding Gardisil vaccine to prevent the 4 strains for HPV that cause cervical cancer if under age 26. Encourage safe sexual practices, to use condoms and limit partners if not already in a monogamous relationsh ip. Do monthly self breast exams. Have mammogram yearly or every other year depending on family history. BRCA testing is now available for patients with strong genetic history of female cancer. If interested contact the office. Engage in daily exercise of low impact aerobic exercise 45-60 minutes 4-5 times weekly. Avoid tobacco and illicit drugs as well as using moderation with alcohol intake less than 1-2 8 oz beverages daily. This lifestyle behavior pattern will lead to less health conditions and longer life span. If BMI greater than 25 weight watchers or dietary consult advised. Patient received above instructio ns, and questions have been answered. If you have any questions please call or respond to this email. Patient was made aware of the patient portal and may obtain a paper copy of today's plan if desired. WWEBC - Mirena IUD, inserted 03/18/22Hx of abnormal pap requiring colposcopy in 2019 - DANNY 1Last pap 06/05/21 - NILMPap done todaySTI testingUTD with PCPRTC in 1 year or sooner if needed Contracept ion care management 499198559 Z30.9 Mass of left breast 1224 340045 2324112 N63.20 Hx of left breast abscess requiring surgical removal x 2 in 2020. Still feels like there is a slight lump under nipple since procedure. No redness, swelling, discharge, or pain. We agreed to update breast u/s and breast specialist consult. [id number] Mirna Aquino REYNALDO [facility] [address] [address] 08/21/2022 09:48:29 08/21/2022 10:25:38 Weight gain 1318952 R63.5 Today we discussed recent weight gain. We discussed diet habits and current exercise regimen. Encouraged her to continue with strength training, as this is very important! Would like for her to incorporat e cardiovasc ular exercise as well. We reviewed healthy diet choices, recommende d system operator consult. We agreed to comprehens anahi fasting labs. Ordered.We discussed weight loss medication s. We agreed to obtain labs, will review labs at next visit and can discuss medication options more at next visit.Enco uraged f/u with PCP as well Time spent in visit is a total of 20 mins with at least 50% of visit consisting of counseling and review of plan of care. Fatigue 79990631 R53.83 Contracept ion care management 644176406 Z30.9 [id number] [facility] [address] [address] 09/20/2022 12:03:18 09/20/2022 12:25:42 Removal of intrauterine device 78760212 Z30.432 It was explained that she may have bleeding or spotting after the removal of the device today as well. If cannot see the strings of this device we will need to get an US image to make that the device is still in place and not in an unobtainab le position. She expressed understand ing of all the above instructio ns. Vaginitis 47735452 N76.0 Suspect BV on examDeclin ed need STD screenRx sent Counseled on medication R/B's, Most common side effects, & use. All questions were answered to patient satisfacti on. [id number] PARAS Arzate [facility] [address],[place] [address] 08/26/2023 15:56:06 08/26/2023 16:22:50 Urinary symptoms 291639063 R39.9 urine cx sentrx sent for UTI - r/b/a reviewedpr ecautions discussedR TC for WWE or sooner if needed Time spent in visit is a total of 15 mins with at least 50% of visit consisting of counseling and review of plan of care. [id number] PARAS Arzate [facility] [address],[place] [address] 01/29/2024 11:17:50 01/29/2024 12:33:12 Vaginitis 38930467 N76.0 vaginitis panel sentSTI screen declinedsu spect BV/yeastrx sent, r/b/a reviewedvu lvar care guidelines discussed Premenstru al dysphoric disorder 703278 F32.81 Discussed management options for PMDDshe would like to restart sertraline rx sent, r/b/a reviewedpr ecautions reviewed (if thoughts of harming self or others occur call 911 immediatel y)med check in 6-8 weeks Time spent in visit is a total of 30 mins with at least 50% of visit consisting of counseling and review of plan of care. [id number] TANA CASTILLO MD [facility] [address],[place] [address] 02/16/2024 14:45:45 02/16/2024 15:31:27 Urinary symptoms 646580271 R39.9 [id number] TANA CASTILLO MD [place] [address],[place] [address] 03/23/2024 09:55:15 03/23/2024 10:29:38 Premenstrual dysphoric disorder 632002 F32.81 - well controlled on sertraline 50mg- discussed increasing dosage during luteal phase if symptoms become worse, would increase to 100mg daily if needed; patient to call if she feels this is necessary- contracept ion: partner vasectomy- rtc for wwe or PRN Health Concerns Section Related Observation LastModified by Organization Detai ls LastModified Time None Recorded Concern Status LastModified by Organization Details LastModified Time None Recorded Advance Directives Directive N: Payers Insurance Date Sequence Insurance Name Policy Number Policy Henson Covered Member ID Henson Member ID Guarantor Name 07/29/2022 1 [facility] [id number] [facility] [id number] 001 [facility] 03/23/2024 2 [place] [facility] [id number] [facility] 03/23/2024 2 [place] [facility] [id number] 001 [facility] 03/23/2024 1 [place] [facility] [id number] 001 [facility] 03/23/2024 1 [place] [id number] [facility] [id number] [facility] 09/16/2022 1 [facility] (PPO) [id number] [facility] [id number] [facility] 02/04/2025 1 [place] [id number] [facility] [id number] [facility] 03/23/2024 1 [place] [id number] [facility] [id number] 88 [facility] Notes Date Note Type Note Provider Name and Address Organization Details Recorded Time 09/20/2022 text/html ROS as noted in the HPI Patient presents for IUD removal. Eleanor Gordon, REYNALDO- [address], [place], [address], [facility] 09/20/2022 12:23:31 08/26/2023 text/html 28yo [id number] for evaluation of urinary symptomsurinary frequency/pressure/b urning, symptoms started todayneg n/v/fneg flank painsneg flu-like symptomsLMP 08/06/23neg vaginal symptoms PARAS Arzate [address], [place], [address], [facility] 08/26/2023 16:13:39 01/29/2024 text/html Vaginal/Vulvar ProblemReported by Patient 28yopresents for evaluation of vaginal discharge/itching/od orsymptoms started a few days after using a new menstrual cupfishy odor, clear/white discharge, itchingSA with steady male partner Mood changes/sadness/mood swings the week leading up to her periods. Has had this for many years. Was on sertraline in the past which has helped.Starting seeing a HRT clinic and has been on daily progesterone. Has not noticed any improvement in symptomsDenies ever thoughts of harming self or others PARAS Arzate [address], [place], [address], [facility] 01/29/2024 12:10:30 03/23/2024 text/html Patient presents for med check. She has a history of PMDD and restarted sertraline 50mg in 01/2024. She reports improvement in her symptoms. No side effects. Feeling good on current dosage. No SI/HI. TANA CASTILLO MD [address], [place], [address], [facility] 03/23/2024 11:03:40 OBGyn Episode Ob Episode Information Episode Created Date Number of Fetuses Patient Bloodtype Patient rh Status Prepregnancy Weight lbs Domestic Partner Domestic Partner Phone Father Name Managing Principal Status 08/01/19 21 1 A Positive 135 Tono Chisholm Tono Chisholm CLOSED Fetus Data First Name Last Name Admitted to NICU Weight (g) Sex Living Outcome Pediatric Complications Fetus ID Race Codes Race Delivery Type 2721.55 2 F true Full Term Meconium Fluid 7797 Vaginal Delivery Problems Problem Notes Breast surgery -wound vac 2:00PM Problem Name Start Date End Date Resolution Snomed Code Not e Abscess of breast [id number] L breast abscess - 09/29 pt getting u/s aspiration with cefdinir 300mg BID 7 days - went to [facility] 08/17 to try to drain and it was unsuccessful. Attempted rpt schd for 08/24/2020 Surgery at [place] 08/25 Anxiety disorder MEDICATION [id number] Tessy johnson Radhames Calculation Initial Radhames Date Initial Exam Date Initial Exam Provider Initial Ultrasound Date Last Menstrual Period Date Ultra Sound Weeks Gestation 12/28/2020 08/01/2020 03/23/2020 0 Eighteen To Twenty Week Radhames Update Ultra Sound Date Fundal Height At Umbil Quickening Date Ultra Sound Latest Weeks Gestation Final Radhames Confirmed By Final Radhames Confirmed Date Final Radhames Date Ultra Sound Latest Days Gestation 08/01/19 21 18 12/29/19 21 5 Pre- Flowsheet Flowsheet Date 08/01/2020 Moreira Score Blood Edema Fundus Height Fundus Units Glucose Ketones Leukocytes Nitrite Labor Signs Protein Cervic Dilation Cervic Effacement Cervic Station neg none trace Type Weight in lbs Pre/Post Dialysis Refused Weight 203.04879058057 BP Diastolic BP Location Tested BP Systolic BP Type 74 112 Fetus Heart Rate Present Fetus Movement A Yes Comments UDS +THC, pt transfer from [facility], pt has anxiety and is managed by zoloft, all questions answered, declined NIPT, and carrier screen done today and anatomy complete (female), reviewed office, folder and precautions f/u 4 weeks Flowsheet Date 08/30/2020 Moreira Score Blood Edema Fundus Height Fundus Units Glucose Ketones Leukocytes Nitrite Labor Signs Protein Cervic Dilation Cervic Effacement Cervic Station neg none trace Type Weight in lbs Pre/Post Dialysis Refused Weight 203.23856998836 BP Diastolic BP Location Tested BP Systolic BP Type 77 123 Fetus Heart Rate Present A 166 Fetus Movement A Yes Comments patient states that having s ome nausea and vomiting, doing well after surgery, packing left breast, saw surgeon yesterday and on bactrim f/u 4 weeks growth and gct Flowsheet Date 09/27/2020 Moreira Score Blood Edema Fundus Height Fundus Units Glucose Ketones Leukocytes Nitrite Labor Signs Protein Cervic Dilation Cervic Effacement Cervic Station Type Weight in lbs Pre/Post Dialysis Refused BP Diastolic BP Location Tested BP Systolic BP Type Fetus Heart Rate Present Fetus Movement Comments Flowsheet Date 09/27/2020 Moreira Score Blood Edema Fundus Height Fundus Units Glucose Ketones Leukocytes Nitrite Labor Signs Protein Cervic Dilation Cervic Effacement Cervic Station neg none trace Type Weight in lbs Pre/Post Dialysis Refused Weight 208.970063775838 BP Diastolic BP Location Tested BP Systolic BP Type 74 117 Fetus Heart Rate Present Fetus Movement A Yes Comments PATIENT STATES THAT LEFT LUIS E AST ABCESS IS BACK AND PAINFUL, finishing bactrim, will most likely start keflex is being followed by surgery at [facility], precautions reviewed, afebrile, f/u 2 weeks with gctdesires natural , us wnl Flowsheet Date 10/11/2020 Moreira Score Blood Edema Fundus Height Fundus Units Glucose Ketones Leukocytes Nitrite Labor Signs Protein Cervic Dilation Cervic Effacement Cervic Station neg none 28 trace Type Weight in lbs Pre/Post Dialysis Refused Weight 212.94798755267 BP Diastolic BP Location Tested BP Systolic BP Type 77 116 Fetus Heart Rate Present A 144 Present Fetus Movement A Yes Comments PATIENT IS STILL HAVING ISSU ES WITH LEFT BREAST ABCESS, going to have surgery on breast with wound vac, otherwise doing well, gct today, precautions reviewed Flowsheet Date 10/24/2020 Moreira Score Blood Edema Fundus Height Fundus Units Glucose Ketones Leukocytes Nitrite Labor Signs Protein Cervic Dilation Cervic Effacement Cervic Station neg none 30 trace Type Weight in lbs Pre/Post Dialysis Refused Weight 218.798929715978 BP Diastolic BP Location Tested BP Systolic BP Type 67 113 Fetus Heart Rate Present A 180 Fetus Movement A Yes Comments Breast surgery 2 weeks ago, stopped antibiotics, still continuing to change wound dressing daily, has f/u with surgeon, nSt. Reactive for GA, precautions reviewed, f/u 2 weeks Flowsheet Date 10/24/2020 Moreira Score Blood Edema Fundus Height Fundus Units Glucose Ketones Leukocytes Nitrite Labor Signs Protein Cervic Dilation Cervic Effacement Cervic Station Type Weight in lbs Pre/Post Dialysis Refused BP Diastolic BP Location Tested BP Systolic BP Type Fetus Heart Rate Present Fetus Movement Comments Flowsheet Date 11/07/2020 Moreira Score Blood Edema Fundus Height Fundus Units Glucose Ketones Leukocytes Nitrite Labor Signs Protein Cervic Dilation Cervic Effacement Cervic Station Type Weight in lbs Pre/Post Dialysis Refused BP Diastolic BP Location Tested BP Systolic BP Type Fetus Heart Rate Present Fetus Movement Comments Flowsheet Date 11/07/2020 Moreira Score Blood Edema Fundus Height Fundus Units Glucose Ketones Leukocytes Nitrite Labor Signs Protein Cervic Dilation Cervic Effacement Cervic Station trace Type Weight in lbs Pre/Post Dialysis Refused Weight 212.57567728258 BP Diastolic BP Location Tested BP Systolic BP Type 76 R arm 124 sitting Fetus Heart Rate Present Fetus Movement A Yes Comments had a cold last week, feelin g better, am is worse but now productive cough, inspiratory wheezes on right only, nebulizer at home one tx today and one tomorrow ok, call if sxs worsen, precautions reviewed, us efw 18%, f/u one more growth in 4 weeks Flowsheet Date 11/22/2020 Moreira Score Blood Edema Fundus Height Fundus Units Glucose Ketones Leukocytes Nitrite Labor Signs Protein Cervic Dilation Cervic Effacement Cervic Station neg none 33 trace Type Weight in lbs Pre/Post Dialysis Refused Weight 215.679568078242 BP Diastolic BP Location Tested BP Systolic BP Type 76 119 Fetus Heart Rate Present A 160 Fetus Movement A Yes Comments patient states that having n ausea and vomiting, puss from incision site on breast, f/u one week gbs precautions reviewed Flowsheet Date 12/06/2020 Moreira Score Blood Edema Fundus Height Fundus Units Glucose Ketones Leukocytes Nitrite Labor Signs Protein Cervic Dilation Cervic Effacement Cervic Station Type Weight in lbs Pre/Post Dialysis Refused BP Diastolic BP Location Tested BP Systolic BP Type Fetus Heart Rate Present Fetus Movement Comments Flowsheet Date 12/06/2020 Moreira Score Blood Edema Fundus Height Fundus Units Glucose Ketones Leukocytes Nitrite Labor Signs Protein Cervic Dilation Cervic Effacement Cervic Station neg trace trace Type Weight in lbs Pre/Post Dialysis Refused Weight 219.280937253152 BP Diastolic BP Location Tested BP Systolic BP Type 77 131 Fetus Heart Rate Present Fetus Movement A Yes Comments Patient states that having s ome contractions, swelling, nausea and vomiting., reviewed precautions gbs done today,cervix 0.5 cm soft/60%, bart rpt next week, efw 13% Flowsheet Date 12/12/2020 Moreira Score Blood Edema Fundus Height Fundus Units Glucose Ketones Leukocytes Nitrite Labor Signs Protein Cervic Dilation Cervic Effacement Cervic Station Type Weight in lbs Pre/Post Dialysis Refused BP Diastolic BP Location Tested BP Systolic BP Type Fetus Heart Rate Present Fetus Movement Comments Flowsheet Date 12/13/2020 Moreira Score Blood Edema Fundus Height Fundus Units Glucose Ketones Leukocytes Nitrite Labor Signs Protein Cervic Dilation Cervic Effacement Cervic Station trace trace trace Type Weight in lbs Pre/Post Dialysis Refused Weight 222.25434071308 BP Diastolic BP Location Tested BP Systolic BP Type 79 124 Fetus Heart Rate Present Fetus Movement A Yes Comments patient states that having h and pain, contractions, discharge with blood and mucus, swelling, nausea and vomiting. precautions reviewed, IOL social reasons for 39 weeks , plan cervadil Flowsheet Date 12/20/2020 Moreira Score Blood Edema Fundus Height Fundus Units Glucose Ketones Leukocytes Nitrite Labor Signs Protein Cervic Dilation Cervic Effacement Cervic Station trace trace 38 trace 2cm 80% Type Weight in lbs Pre/Post Dialysis Refused Weight 216.158820136575 BP Diastolic BP Location Tested BP Systolic BP Type 86 144 Fetus Heart Rate Present A 142 Fetus Movement A Yes Comments Pt states contractions every 5-6 minutes and appears uncomfortable. Cervical change from last visit. Sent to L&D for evaluation. Flowsheet Date 12/20/2020 Moreira Score Blood Edema Fundus Height Fundus Units Glucose Ketones Leukocytes Nitrite Labor Signs Protein Cervic Dilation Cervic Effacement Cervic Station Type Weight in lbs Pre/Post Dialysis Refused BP Diastolic BP Location Tested BP Systolic BP Type Fetus Heart Rate Present Fetus Movement Comments Flowsheet Date 12/27/2020 Moreira Score Blood Edema Fundus Height Fundus Units Glucose Ketones Leukocytes Nitrite Labor Signs Protein Cervic Dilation Cervic Effacement Cervic Station Type Weight in lbs Pre/Post Dialysis Refused BP Diastolic BP Location Tested BP Systolic BP Type 118 L arm 170 sitting 95 R arm 174 sitting Fetus Heart Rate Present Fetus Movement Comments Flowsheet Date 12/29/2020 Moreira Score Blood Edema Fundus Height Fundus Units Glucose Ketones Leukocytes Nitrite Labor Signs Protein Cervic Dilation Cervic Effacement Cervic Station Type Weight in lbs Pre/Post Dialysis Refused Weight 195.966606061016 BP Diastolic BP Location Tested BP Systolic BP Type 94 158 Fetus Heart Rate Present Fetus Movement Comments Menstrual History Last Menstrual Date Menses Monthly On Bcp Conception Prior Menses Frequency Hcg Plus Date Menarche Onset Age 1003/23/2020 true 0 Genetic Screening And Infection History Question Response Note Mental Retardation/Autism false Patient's Age Will Be 35 Yea rs Or Older At Estimated Date of Delivery false Thalassemia (English, Romanian, Mediterranean, Or Background): MCV < 80 false Neural Tube Defect (Meningom yelocele, Spina Bifida, Or Anencephaly) false Congenital Heart Defect false Down Syndrome false Marek-Sachs (eg, Advent, Cajun, Costa Rican-Pender) f alse Bianca Disease false Sickle Cell Disease Or Trait () false Hemophilia Or Other Blood Disorders false Muscular Dystrophy false Cystic Fibrosis false Garrard's Chorea false Intellectual Disability/Autism false If Yes, Was Person Tested For Fragile X? false Other Inherited Genetic Or Chromosomal Disorder false Maternal Metabolic Disorder (eg, Type 1 Diabetes , PKU) false Patient Or Baby's Father Had A Child With Defects Not Listed Above false Recurrent Loss, Or A Stillbirth false Medications (including Suppl ements, Vitamins, Herbs, OTC Drugs), Illicit/Recreational Drugs, Alcohol false pnv, zoloft If Yes, Agent(s) And Strength/Dosage false Any Other Genetic History false Live With Someone With TB Or Exposed To TB false Patient Or Partner Has History Of Genital Herpes false Rash Or Viral Illness Since Last Menstrual Perio d false History Of STD, Gonorrhea, Chlamydia, HPV, Syphi lis false Other Infection History false History of HIV false History of Hepatitis false Prior GBS-infected child false Hemoglobinopathy Or Carrier false Other Structural Defect false Recent Travel History Outside of Country false Delivery Information Delivery Date Delivery Type Labor Anesthesia Weeks Gestation Incision Type Labor Labor Length Hrs Delivered By Post Complications Tubal Sterilization Discharge Date Comments 1 Sponta neous None 39 false An Albarado CNM Discharge Information Feeding Method Contraceptive Method Maternal HG B and HCT Levels
--- OUTSIDE RECORDS SUMMARY | 2025-04-25 08:44 | XMS_ITS | Clinical Summary ---
Author Organization [facility] Address [address] [place] [address] Care Team Providers Care Spectroscopist Name Role Phone Kandi Alvarado NEELA Primary Care Provider [phone] Allergies Active Allergy Reactions Criticality Noted Date [...] Comments Blood Pressure 128/78 05/25/2021 7:33 AM END FRAZER Pulse 73 05/25/2021 7:33 AM END FRAZER Temperature 36.8 C (98.3 F) 05/25/2021 7:33 AM END FRAZER Respiratory Rate 16 05/25/2021 7:33 AM END FRAZER Oxygen Saturation 100% 05/25/2021 7:33 AM END FRAZER Inhaled Oxygen Concentration - - Weight 86.2 kg (190 lb) 05/25/2021 7:33 AM END FRAZER Height 162.6 cm (5' 4) 05/25/2021 7:33 AM END FRAZER Body Mass Index 32.61 05/25/2021 7:33 AM END FRAZER Plan of Treatment Health Maintenance Due Date [...] HEPATITIS C ANTIBODY Routine 07/19/2021 7:17 AM END FRAZER Need for hepatitis C screening test from Last 3 Months or Most Recently Relevant to Health Maintenance Results * HEPATITIS C ANTIBODY (07/19/2021 7:17 AM END FRAZER) HEPATITIS C AB NON-REACTI VE NON-REACT TOM 07/19/2021 6:09 PM END FRAZER [facility] Comment: ANTIBODIES TO HCV NOT DETECTED. DOES NOT EXCLUDE THE POSSIBILITY OF EXPOSURE TO HCV. 07/19/2021 7:17 AM END FRAZER [facility] Final Result [facility] [address] [place] [address], [id number] from Last 3 Months or Most Recently Relevant to Health Maintenance Insurance MEDICAID Care Teams Spectroscopist Relationship Specialty Start Date End Date Kandi Alvarado FNP [address] [place] [address] PCP - General Nurse Practitioner Family 05/25/21
--- OUTSIDE RECORDS SUMMARY | 2025-04-25 08:44 | XMS_ITS | Clinical Summary ---
Author Organization [facility] Address [address] [place] [address] Care Team Providers Care Construction Carpenter Name Role Phone An Albarado NP Unavailable [phone] Saad Villarreal MD Primary Care Provider [phone] Allergies Active Allergy Reactions Criticality Noted Date [...] on file Legal Sex Female 6:16 AM VIRTUAL ASSISTANT Gender Identity Female 08/17/2020 12:06 PM VIRTUAL ASSISTANT Sexual Orientation Not on file Last Filed [...] age to complete this topic Insurance [facility]LY [facility], [facility] Care Teams Construction Carpenter Relationship Specialty Start Date End Date Saad Villarreal MD [address] [facility] [address] [place] [address] PCP - General Cardiovascular Disease 10/25/24 An Albarado NP Nurse Practitioner Obstetrics and Gynecology 08/10/20
[2025-04-25 09:00] LABS: Hematocrit 46.0 % (37.0-47.0); Hemoglobin 15.5 g/dL (12.0-15.0); Immature Granulocyte Percent A 0.6 % (0-0.5); Lymphocytes Absolute Auto 1.43 K/mm3 (0.9-3.2); Mean Corpuscular HGB Conc 33.7 g/dl (32-36); Mean Corpuscular Hemoglobin 33.7 pg (26-34); Mean Corpuscular Volume 100.0 fl (80-100); Nucleated Red Blood Cells Absolute Auto 0.000 K/mm3 (0.0-0.012); Nucleated Red Blood Cells Perc 0.0 % (0.0-0.2); Platelet Count Result 254 k/mm3 (150-375); Red Blood Count 4.60 M/mm3 (4.2-5.4); White Blood Count 10.9 K/mm3 (4.5-10.0)
[2025-04-25] MEDS: CLINDAMYCIN 600 MG/D5W 50 ML 600 MG/50 ML PIGGYBACK 100 MG IVPB (09:01)
[2025-04-25 09:17] LABS: Anion Gap 10 mmol/L (4-12); Blood Urea Nitrogen 14 mg/dL (7-17); Calcium 9.2 mg/dL (8.4-10.2); Carbon Dioxide 25 mmol/L (22-30); Chloride 102 mmol/L (98-107); Estimated CRCL calculation 115 ml/min; Estimated Glomerular Filt Rate > 60; Glucose 85 mg/dL (65-110); Potassium 3.7 mmol/L (3.4-5.0); Sodium 137 mmol/L (137-145)
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
--- NOTE | 2025-04-25 10:33 | PM.IMHP ---
H&P: HPI History of Present Illness Date/Time: 04/25/25 10:33 Chief Complaint: Left breast pain Narrative: This is a 30-year-old female with a history of left breast abscess about 4 years ago, who presented to the ED today for complaints of left breast pain and swelling starting 2 days ago. She woke up and noticed some pain in her left breast. When looking in the mirror, she could tell the left breast appeared more swollen. Her tenderness and pain is near the aerola and reportedly in the same location of her last breast abscess. When she had her abscess 4 years ago, she was and had recurrence about a month later. She underwent I&D on both occasions. She reports initially going to [facility] before her first I&D and had an aspiration multiple times without improvement of her symptoms. She does not want to go through aspiration again due to her previous experience. She reports having a fever of 100F yesterday and nausea, but no vomiting. No other complaints. In the ED, labs showed a WBC count of 10.3. She had a bedside ultrasound by the ED physician that showed a 1.5 cm subareolar abscess at the 10 o'clock position. She is not a smoker. She is not currently or . She does report having an inverted nipple on the left ever since her last surgery in 2020. She did have breast tissue biopsy during both I&D's in 2020 that showed no malignancy. Her cultures had grown peptostreptococcus and prevotella species, which was treated with clindamcyin in the past. She received a dose of IV clindamycin in the ED. She denies having any mammograms since her surgeries. No family history of breast cancer. 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 Surgical History Surgical History Subareolar breast abscess Hx of tonsillectomy Family History Family History Mother Hypertension Father Hypertension Father Hypertension Other Cancer determined by pancreatic biopsy Social History Social History Smoking status: Never smoker Second hand tobacco smoke exposure: No Alcohol intake: never Substance use: never Substance use type: marijuana Other substance usage details: at times, not recent Living arrangements: with family Occupation/Education: occupation 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 Gender identity (if verbalized by the patient): Female Spiritual care concerns: No Meds Home Medications and Allergies Home Medications ?Medication ?Instructions ?Recorded ?Confirmed ?Type vit no.65-iron fum,ps 40 1 cap PO DAILY 10/12/20 12/13/20 History mg iron-folic acid 1.25 mg capsule prednisone 20 mg tablet 40 mg (2 x 20 mg) PO DAILY 5 days 12/20/24 Rx #10 tabs triamcinolone acetonide 0.1 % 1 applic topical BID 7 days #30 12/20/24 Rx topical cream grams Allergies Allergy/AdvReac Type Severity Reaction Status Date / Time amoxicillin Allergy Rash Verified 04/25/25 08:17 Vital Signs Vital Signs - 24 hr 04/25/25 08:14 Temperature 98 F Pulse Rate 92 Respiratory Rate 18 Blood Pressure 147/94 H Pulse Oximetry 100 Oxygen Delivery Room Air Exam Const: General: comfortable and no acute distress Nutritional Appearance: average body habitus Orientation/consciousness: patient oriented x3 HENMT: Head: normocephalic and atraumatic Ears: hearing grossly normal bilaterally Mouth: Yes moist mucous membranes Eyes: General: appearance normal, both eyes and all related structures Pupils: Equal, round and reactive pupils present Neck: Neck: normal visual inspection and full ROM Chest: Other: Right breast normal to inspection with no redness, swelling, or palpable masses. No axillary LAD. Left breast with inverted nipple, no nipple drainage, mild swelling and induration in the subareolar area at 9-10 o'clock position. She is tender in this area. No obvious overlying skin changes. No other palpable masses of the left breast and no axillary LAD. Resp: Effort & Inspection: no respiratory distress Auscultation: clear to auscultation bilaterally Cardio: Rate: regular rate Rhythm: regular rhythm GI: Inspection: non-distended GI Palp: Yes Soft to palpation, No Tenderness to palpation present (GI), No Guarding due to palpation present (GI) and No Rebound tenderness present Auscultation: normal bowel sounds Rectal Exam: deferred Skin: General skin exam: normal color Neuro: General: moves all extremities and no focal motor deficits Speech: normal speech Motor exam (neuro): 5/5 motor strength present throughout Extrem: General: normal to inspection and no edema Psych: Mental Status: mental status grossly normal Attitude: cooperative Insight: Good insight present (Psych) Judgement: Good judgement present (Psych) H&P: Results Labs Labs: Short CBC 04/25/25 Range/Units 08:53 WBC 10.9 H (4.5-10.0) K/mm3 Hgb 15.5 H D (12.0-15.0) g/dL Hct 46.0 (37.0-47.0) % Plt Count 254 (150-375) k/mm3 BMP 04/25/25 08:53 Sodium 137 Potassium 3.7 Chloride 102 Carbon Dioxide 25 BUN 14 Creatinine 0.74 Glucose 85 Calcium 9.2 Assessment and Plan Assessment and plan (1) Subareolar breast abscess: Code(s): N61.1 - Abscess of the breast and nipple Status: Acute Assessment and Plan: Patient has a recurrent subareolar left breast abscess in the same location as before in 2020. She has not had any issues for the past 4 years up until this point. Bedside ultrasound showed a small 1.5-2 cm fluid collection in the subareolar area at the 10 o'clock position. She received a dose of IV clindamycin in the ER. She does not have any significant risk factors for recurrent breast abscess, although anatomically, this could be related to her inverted nipple since her last surgery? We discussed the option of needle aspiration vs bedside I&D vs I&D in the operating room by Dr. Plummer with anesthesia. Due to her previous experiences, she would prefer to avoid aspiration and does not want to do the bedside I&D with only local anesthetic. She would prefer to have this done in the OR under anesthesia. Description of the procedure, risks, benefits, alternatives, and expected postoperative wound care were discussed with her in detail and all questions were answered. She agrees to proceed and willl be added onto the surgery schedule today. Will keep her NPO and start IV fluids. Plan I have discussed the patient's case and plan of care with Dr. Plummer.
[2025-04-25] MEDS: LACTATED RINGERS 1,000 ML 333 ML IV CONT (10:46)
--- OUTSIDE RECORDS SUMMARY | 2025-04-25 11:24 | XMS_ITS | Encounter Summary ---
Author Organization [facility] Address [address] [place] [id number] Care Team Providers Care Bill Recapitulation Clerk Name Role Phone Kandi Alvarado Primary Care Provider [phone] Encounter Details Date Type Department Care Team (Late st Contact Info) Description 06/20/2021 Enviroohart Message Enc [facility] Family & Internal Medicine [facility] [address] [place] [address] Kandi Alvarado FNP [address] [place], [place] [id number] Reschedule Social History Tobacco Use Types Packs/Day [...] Coronavirus / COVID-19? Yes 05/31/2021 8:23 AM FARM HELPER documented as of this encounter Plan of Treatment Not on file documented as of this encounter Visit Diagnoses Not on filedocumented in this encounter Additional Health Concerns Infection Onset Date Last Indicated Resolved Time COVID-19 Rule Out 07/03/2021 07/03/202107/03/2021 1:41 PM FARM HELPER COVID-19 Confirmed 07/03/2021 07/03/2021 12:34 AM FARM HELPER Assessment Noted Time PHQ-9 Depression Total Score: 9 05/25/20 21 7:58 AM FARM HELPER documented as of this encounter Care Teams Bill Recapitulation Clerk Relationship Specialty Start Date End Date Kandi Alvarado FNP [address] [place] [id number] PCP - General Nurse Practitioner Family 05/25/21 documented as of this encounter
--- OUTSIDE RECORDS SUMMARY | 2025-04-25 11:24 | XMS_ITS | Clinical Summary ---
Author Organization [facility] Address [address] [place] [address] Care Team Providers Care Sap Crm Developer Name Role Phone Kandi Alvarado NEELA Primary Care Provider [phone] Allergies Active Allergy Reactions Criticality Noted Date [...] Comments Blood Pressure 128/78 05/25/2021 7:33 AM QUANTITATIVE EQUITY HEAD Pulse 73 05/25/2021 7:33 AM QUANTITATIVE EQUITY HEAD Temperature 36.8 C (98.3 F) 05/25/2021 7:33 AM QUANTITATIVE EQUITY HEAD Respiratory Rate 16 05/25/2021 7:33 AM QUANTITATIVE EQUITY HEAD Oxygen Saturation 100% 05/25/2021 7:33 AM QUANTITATIVE EQUITY HEAD Inhaled Oxygen Concentration - - Weight 86.2 kg (190 lb) 05/25/2021 7:33 AM QUANTITATIVE EQUITY HEAD Height 162.6 cm (5' 4) 05/25/2021 7:33 AM QUANTITATIVE EQUITY HEAD Body Mass Index 32.61 05/25/2021 7:33 AM QUANTITATIVE EQUITY HEAD Plan of Treatment Health Maintenance Due Date [...] HEPATITIS C ANTIBODY Routine 07/19/2021 7:17 AM QUANTITATIVE EQUITY HEAD Need for hepatitis C screening test from Last 3 Months or Most Recently Relevant to Health Maintenance Results * HEPATITIS C ANTIBODY (07/19/2021 7:17 AM QUANTITATIVE EQUITY HEAD) HEPATITIS C AB NON-REACTI VE NON-REACT TOM 07/19/2021 6:09 PM QUANTITATIVE EQUITY HEAD [facility] Comment: ANTIBODIES TO HCV NOT DETECTED. DOES NOT EXCLUDE THE POSSIBILITY OF EXPOSURE TO HCV. 07/19/2021 7:17 AM QUANTITATIVE EQUITY HEAD [facility] Final Result [facility] [address] [place] [address], [id number] from Last 3 Months or Most Recently Relevant to Health Maintenance Insurance MEDICAID Care Teams Sap Crm Developer Relationship Specialty Start Date End Date Kandi Alvarado FNP [address] [place] [id number] PCP - General Nurse Practitioner Family 05/25/21
--- OUTSIDE RECORDS SUMMARY | 2025-04-25 11:24 | XMS_ITS | Clinical Summary ---
Author Organization [facility] Address [address] [place] [address] Care Team Providers Care Sugarcane Planter Name Role Phone Unavailable Primary Care Provider Unavailabl e Source Comments [facility],non-owned Affiliates and Associated Physician Practices is amultiple site organization consisting of ambulatory clinics and hospital sitesin [place], [place], [place] and [place]. This disclosure is being madepursuant to the Care Everywhere program and may not contain all information available regarding this patient. Last updated 18.[facility] Allergies Active Allergy Reactions Criticality Noted Date [...] Father Cancer Paternal Grandfather Pancrea tic cancer [place] Disease Paternal Grandmother Relation Name Status Comments [...] patient's age to complete this topic Insurance [facility] AETNA AETNA Advance Directives * Full Code (Latest Code Status on File) Date Activated Date Inactivated Comments 12/05/2017 8:23 PM 12/06/2017 12:20 PM
--- OUTSIDE RECORDS SUMMARY | 2025-04-25 11:24 | XMS_ITS | Encounter Summary ---
Author Organization [facility] Address [address] [place] [address] Care Team Providers Care Senior Mobile Developer Name Role Phone Kandi Alvarado Primary Care Provider [phone] Encounter Details Date Type Department Care Team (Late st Contact Info) Description 05/28/2021 sevenloadhart Message Enc [facility] Medical Group Family & Internal Medicine [facility] [address] [place] [address] Kandi Alvarado FNP [address] [place], [place] [id number] Strep Social History Tobacco Use Types Packs/Day [...] Coronavirus / COVID-19? Yes 05/31/2021 8:23 AM PRODUCTION GENERALIST documented as of this encounter Progress Notes * NEELA Hoffmann - 05/29/2021 5:32 PM CST Needs to get covid, flu and strep testing prior to coming in tomorrow. UCTION GENERALIST documented in this encounter Plan of Treatment Not on file documented as of this encounter Visit Diagnoses Not on filedocumented in this encounter Additional Health Concerns Infection Onset Date Last Indicated Resolved Time COVID-19 Rule Out 05/30/2021 05/30/2021 05/30/2021 8:09 AM PRODUCTION GENERALIST COVID-19 Rule Out 05/31/2021 05/31/2021 05/31/2021 1:45 PM PRODUCTION GENERALIST COVID-19 Rule Out 07/03/2021 07/03/2021 07/03/2021 1:41 PM PRODUCTION GENERALIST COVID-19 Confirmed 07/03/2021 07/03/2021 12:34 AM PRODUCTION GENERALIST Assessment Noted Time PHQ-9 Depression Total Score: 9 05/25/20 21 7:58 AM PRODUCTION GENERALIST documented as of this encounter Care Teams Senior Mobile Developer Relationship Specialty Start Date End Date Kandi Alvarado FNP [address] [place] [id number] PCP - General Nurse Practitioner Family 05/25/21 documented as of this encounter
--- OUTSIDE RECORDS SUMMARY | 2025-04-25 11:24 | XMS_ITS | Clinical Summary ---
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
[2025-04-25] MEDS: MORPHINE SULFATE (*CRX) 4 MG/ML INJ 2 MG IV PUSH (11:53)
[2025-04-25 12:30] LABS: BEDSIDEPREGUCG Negative (Negative)
--- NOTE | 2025-04-25 14:03 | P.PNAN_ITS ---
Anes - Initial Pre Proc Eval Procedure: Operation Date: 04/25/25 15:00 Proposed Procedures p Incision and Drainage Left Breast Abscess - Sophie Plummer MD Date/Time: 04/25/25 14:03 Surgeon: Sophie Plummer MD Pre Op Diagnosis: left breast absess Patient Data Age: 30 Gender: F Height: 1.63 m Weight: 109.1 kg Last Vital Signs Temp 98.3 F 04/25/25 12:58 Pulse 78 04/25/25 12:58 Resp 16 04/25/25 12:58 BP 145/86 H 04/25/25 12:58 Pulse Ox 100 04/25/25 12:58 O2 Del Method Room Air 04/25/25 12:58 Allergies Allergy/AdvReac Type Severity Reaction Status Date / Time amoxicillin Allergy Rash Verified 04/25/25 12:56 Home Medications ?Medication ?Instructions ?Recorded ?Confirmed ?Type vit no.65-iron fum,ps 40 1 cap PO DAILY 10/1204/25/25 History mg iron-folic acid 1.25 mg capsule prednisone 20 mg tablet 40 mg (2 x 20 mg) PO DAILY 5 days 12/20/24 04/25/25 Rx #10 tabs triamcinolone acetonide 0.1 % 1 applic topical BID 7 d ays #30 12/20/24 04/25/25 Rx topical cream grams Laboratory Tests 04/25/25 04/25/25 08:53 12:29 WBC 10.9 H K/mm3 (4.5-10.0) RBC 4.60 M/mm3 (4.2-5.4) Hgb 15.5 H D g/dL (12.0-15.0) Hct 46.0 % (37.0-47.0) MCV 100.0 fl (80-100) MCH 33.7 pg (26-34) MCHC 33.7 g/dl (32-36) RDW 13.2 % (11.5-14.5) Plt Count 254 k/mm3 (150-375) MPV 9.2 fl (7.4-10.4) Immature Gran % (Auto) 0.6 H % (0-0.5) Neut % (Auto) 78.8 H % (45.5-73.1) Lymph % (Auto) 13.1 L % (18.3-44.2) [place]ockley % (Auto) 6.5 % (2.6-8.5) Eos % (Auto) 0.6 % (0-4.4) Baso % (Auto) 0.4 % (0.2-1.2) Lymph # (Auto) 1.43 K/mm3 (0.9-3.2) [place]ockley # (Auto) 0.7 H K/mm3 (0.1-0.6) Eos # (Auto) 0.1 K/mm3 (0-0.3) Baso # (Auto) 0.0 K/mm3 (0.0-0.1) Abs Immat Gran (auto) 0.06 H K/mm3 (0.00-0.031) Absolute Neuts (auto) 8.6 H K/mm3 (1.3-6.7) Absolute Nucleated RBC 0.000 K/mm3 (0.0-0.012) Nucleated RBC % 0.0 % (0.0-0.2) Sodium 137 mmol/L (137-145) Potassium 3.7 mmol/L (3.4-5.0) Chloride 102 mmol/L (98-107) Carbon Dioxide 25 mmol/L (22-30) Anion Gap 10 mmol/L (4-12) BUN 14 mg/dL (7-17) Creatinine 0.74 mg/dL (0.7-1.0) Estim Creat Clear Calc 115 ml/min Estimated GFR > 60 (59 - ) Glucose 85 mg/dL (65-110) Calcium 9.2 mg/dL (8.4-10.2) POC Urine HCG, Qual Negative (Negative) Patient hx anesthesia problems: none Family hx anesthesia problems: none Results Review: All pre-operative results and documents have been reviewed as part of the pre- operative evaluation. 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 Surgical History Surgical History Subareolar breast abscess Hx of tonsillectomy Family History Family History Mother Hypertension Father Hypertension Father Hypertension Other Cancer determined by pancreatic biopsy Social History Social History Smoking status: Never smoker Second hand tobacco smoke exposure: No Alcohol intake: never Substance use: never Substance use type: marijuana Other substance usage details: at times, not recent Living arrangements: with family Occupation/Education: occupation 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 Informed Consent: The patient's anesthetic plan and its attendant risks and benefits were discussed with the patient/family/POA. Questions were solicited and answers provided to the satisfaction of the patient/family/POA.
--- NOTE | 2025-04-25 14:03 | WPDHPUPDATE1 ---
History and Physical Update Update Date/Time: 04/25/25 14:03 History and Physical has been reviewed, including an updated exam of the patient. There are NO changes in the patient's condition. Risks, benefits, and alternatives have been discussed and questions answered. Patient agrees to proceed with procedure.
[2025-04-25] MEDS: LACTATED RINGERS 1,000 ML 30 ML IV CONT (14:48)
--- NOTE | 2025-04-25 14:54 | W.PM.PROC2 ---
Procedure Note - Detailed Date of Procedure 04/25/25 Pre-op Diagnosis left breast subareolar abscess Post-op Diagnosis Same Procedure Performed complex incision and drainage left breast subareolar abscess measuring 3 x 2 cm Surgeon Sophie Plummer MD Financial Representative [place] Anesthesia General and Local Indications 30-year-old female presenting to the emergency department complaining of left breast pain. Imaging and workup significant for left subareolar breast abscess. Findings Left subareolar breast abscess at the 10 o'clock position with cavity measuring 3 x 2 cm Description of Procedure The patient was taken the operating room and placed in the supine position. After adequate induction of general anesthesia, the patient was prepped and draped in the normal sterile fashion. A time-out was then done to verify the patient's identity, as well as procedure being performed. We began by localizing the area in and around this abscess in the subareolar region of the left breast. This was not located about the 10 o'clock position. We then made a incision with a 15 blade scalpel over the most fluctuant area of the abscess. This was carried down through the dermis and into the subcutaneous breast tissue. At this point a large amount of purulent drainage was noted. Sterile cultures were then obtained. We then used the hemostat to bluntly dissect around this cavity. More purulent drainage was noted. After the area was completely drained, the cavity measured approximately 3 x 2 cm. We then copiously irrigated the cavity. Further local anesthetic was placed. We then packed the cavity quarter-inch to keep the area open draining. Sterile dressing was then placed. The patient tolerated the procedure well was extubated postoperatively. She will be transferred to the recovery stable condition. Estimated Blood Loss 5 Packing Yes Pathology None sent Complications No immediate complications Condition Stable Disposition PACU [facility] Billing Surgery - Charge Forward: Surgery Billing
--- NOTE | 2025-04-25 15:58 | SUR.OPER ---
Culture given to ADRIEL Sosa at 1444; given to Davin in Lab at 1447
--- NOTE | 2025-04-25 16:27 | SUR.PHASEII ---
8915 PATIENT STATES SHE HAS HAD ELEVATED BP ON & OFF FOR YEARS AND THIS IS NORMAL FOR HER. SHE WANTS TO GO HOME & STATES SHE WILL FOLLOW UP WITH HER PCP.
== END 2025-04-25 16:25 | disposition home or self-care (01) ==
LOC: ANHED 10:04 → ANHSURGERY 10:25
PROVIDERS: Emergency Provider Emergency Medicine; PCP Internal Medicine; Visit Provider Surgery
PROC: (CPT 10061; principal; 2025-04-25 15:00)
DX: N61.1 Abscess of the breast and nipple (principal); F12.90 Cannabis use, unspecified, uncomplicated; E66.01 Morbid (severe) obesity due to excess calories; Z68.41 Body mass index [BMI] 40.0-44.9, adult; Z79.52 Long term (current) use of systemic steroids; Z98.890 Other specified postprocedural states; Z80.0 Family history of malignant neoplasm of digestive organs
CPT/HCPCS: 10061; 36415; 80048; 81025; 85025; 87040; 87070; 87075; 87205; 96365; 96375; 99285; J1100; J2003; J2250; J2270; J2405; J2704; J3010; J7120